=== PATIENT | female | born 1945 | race Caucasian/White ===

== ENCOUNTER → 2017-04-15 | Outpatient (CLI) | payer MEDICARE ==
[2017-04-15 07:26] LABS: Basophils % (A) 0 %; CH 32.1; CHCM 31.8; Eosinophils # (A) 0.1 k/uL (0-0.7); Eosinophils % (A) 2 %; HCT 50.7 % (34.0-46.0); HDW 2.24; HGB 16.3 gm/dL (11.4-16.0); Luc # (Auto) 0.16; Luc % (Auto) 2; Lymphocytes # (A) 2.3 k/uL (1.0-4.8); Lymphocytes % (A) 32 %; MCH 32.6 pg (25.0-35.0); MCHC 32.1 g/dL (31.0-37.0); MCV 101.6 fL (80.0-100.0); Macrocytosis Slight; Mean Platelet Volume 7.1; Monocytes # (A) 0.6 k/uL (0-1.0); Monocytes % (A) 8 %; Neutrophils # (A) 4.1 k/uL (1.3-7.7); Neutrophils % (A) 57 %; RBC 4.99 m/uL (3.80-5.40); RDW 14.1 % (11.5-15.5); WBC 7.2 k/uL (3.8-10.6); WBC (Perox) 7.13
[2017-04-15 08:40] LABS: ALT 29 U/L (9-52); AST 29 U/L (14-36); Alkaline Phosphatase 59 U/L (38-126); Anion Gap 8 mmol/L; Blood Urea Nitrogen 17 mg/dL (7-17); Calcium 9.6 mg/dL (8.4-10.2); Carbon Dioxide 28 mmol/L (22-30); Chloride 108 mmol/L (98-107); Cholesterol 156 mg/dL (<200); Glucose 104 mg/dL (74-99); HDL Cholesterol 57 mg/dL (40-60); Non-African American GFR(MDRD) 54 (>60 ml/min/1.73 sqM); Potassium 5.1 mmol/L (3.5-5.1); Sodium 144 mmol/L (137-145); Total Bilirubin 0.9 mg/dL (0.2-1.3); Total Protein 6.4 g/dL (6.3-8.2); Triglycerides 161 mg/dL (<150)
== END | disposition home or self-care (01) ==
LOC: LABWHC1 06:36
PROVIDERS: ATTEND Internal Medicine Interventional Cardiology
DX: E78.2 Mixed hyperlipidemia (principal)
CPT/HCPCS: 36415; 80053; 80061; 85025

== ENCOUNTER → 2017-06-20 | Outpatient (CLI) | payer MEDICARE, OTHER ==
--- NOTE | 2017-06-20 12:15 | BD ---
EXAMINATION TYPE: MG DEXA axial skeleton. DATE OF EXAM: 06/20/2017 CLINICAL HISTORY: Postmenopausal female with osteopenia. Height: 61 Weight: 107 FRAX RISK QUESTIONS: Alcohol (3 or more units per day): no Family History (Parent hip fracture): no Glucocorticoids (More than 3mos): no (Ex: prednisone, prednisolone, methylprednisolone, dexamethasone, and hydrocortisone). History of Fracture in Adulthood: little finger Secondary Osteoporosis: 1. Type 1 Diabetes: no 2. Hyperthyroidism: no 3. Menopause before 45: yes, age 37 4. Malnutrition: unsure 5. Chronic liver disease: no Rheumatoid Arthritis: yes, but stopped meds for this Current Tobacco Use: yes RISK FACTORS HISTORY OF: Family History of Osteoporosis: no Active: yes Diet low in dairy products/other sources of calcium: no Postmenopausal woman: yes Take estrogen and/or progesterone medications: not now How long: about 28 years Lost more than 2 inches in height since high school: no Frequent falls: no Poor Health: no Hyperparathyroidism: no Adrenal Insufficiency: no MEDICATIONS: Prednisone or other steroids: no Thyroid Medications: no Osteoporosis Medications: no Additional Medications: blood thinner, heart meds Additional History: weight loss EXAM MEASUREMENTS: Bone mineral densitometry was performed using the [employer] System. Bone mineral density as measured about the Lumbar spine is: ----- L1-L4(G/cm2): 1.043 T Score Values are as follows: ----- L2: -1.7 ----- L3: -0.7 ----- L4: -0.5 ----- L1-L4: -1.1 Bone mineral density has: Decreased -2.0% since study of: 05/28/2014 Bone mineral density about the R hip (g/cm2): 0.666 Bone mineral density about the L hip (g/cm2): 0.663 T Score values are as follows: -----R Neck: -2.7 -----L Neck: -2.7 -----R Total: -2.0 -----L Total: -2.2 Bone mineral density has: Decreased -7.0% since study of: 05/28/2014 IMPRESSION: Osteoporosis (T Score less than -2.5) as noted by T Score values at the There is increased fracture risk and therapy is usually indicated based on age. Re-Screen 1-2 years. NOTE: T-SCORE=SD OF THE YOUNG ADULT MEAN.
--- NOTE | 2017-06-22 08:42 | MM ---
Reason for exam: screening (asymptomatic). Last mammogram was performed 1 year ago. History: Patient is postmenopausal and is nulliparous. Took estrogen for 28 years beginning at age 37. Took progesterone for 28 years beginning at age 37. Physical Findings: A clinical breast exam by your physician is recommended on an annual basis and results should be correlated with mammographic findings. MG 3D Screening Mammo W/Cad Bilateral CC and MLO view(s) were taken. Prior study comparison: June 07, 2016, bilateral MG 3d screening mammo w/cad. June 12, 2015, right breast MG work up mamm w CAD RT. The breast tissue is heterogeneously dense. This may lower the sensitivity of mammography. Finding: There are typically benign grouped calcifications in the left breast. No significant changes in finding since June 07, 2016 and June 12, 2015. ASSESSMENT: Benign, BI-RAD 2 RECOMMENDATION: Routine screening mammogram of both breasts in 1 year.
== END | disposition home or self-care (01) ==
LOC: RADMAMWWP 08:34
PROVIDERS: ATTEND Internal Medicine
DX: Z12.31 Encounter for screening mammogram for malignant neoplasm of breast (principal); M81.0 Age-related osteoporosis without current pathological fracture
CPT/HCPCS: 77080; 77063; G0202

== ENCOUNTER → 2017-07-19 | Outpatient (CLI) | payer MEDICARE, OTHER ==
--- NOTE | 2017-07-19 08:48 | CTL ---
EXAMINATION TYPE: CT Low Dose Lung DATE OF EXAM ORDERED: 07/19/2017 HISTORY: Long-term tobacco use. Lung cancer screening CT DLP: 44.[address] CTDI: 1.10 mGy Automated exposure control for dose reduction was used. SCREENING VISIT: Initial study COMPARISON: None TECHNIQUE: Low dose computed tomography scan was performed through the chest at 1 mm thick sections a nd reconstructed images in the coronal plane at [address] DIAGNOSTIC QUALITY: Satisfactory FINDINGS: LUNG NODULES: Present, detailed below: Right lung a nodule with a size of 2 mm. that is solid in nature on image # CT Image slide number [id number]. Right lung a nodule with a size of 3 x 3 mm. with Nodule Type: Solid on image # CT Image slide numbe r [id number]. Left lung nodule with a size of 4 x 3 mm that is solid in the left lower lobe on axial image 172. Lingular 3 x 3 mm nodule that is solid on axial image 205. Left lung irregular solid nodule with a size of 5 x 2 mm on axial image 238. There are 3-4 additional small nodules in the left lower lobe measuring 3 mm or smaller in size. LUNGS: COPD: Severity: Mild to minimal Fibrosis: Severity: Mild biapical fibrosis. Focal fibrosis in inferior left upper lobe abutting media stinum on axial image 202. Mild linear scarring in the bilateral lung bases. Lymph nodes: Prominent but subcentimeter lymph nodes, for reference is 10 x 6 mm paracarinal lymph no de on axial image 125. Other findings: No significant findings observed. BILATERAL PLEURAL SPACE: Effusion: None Calcification: None Thickening: None Pneumothorax: None HEART: Heart Size: Normal Coronary calcification: Severe three-vessel Pericardial effusion: None OTHER FINDINGS: Upper abdomen: No significant finding observed. Bony thorax: Spine is straightened on sagittal images. Supraclavicular region: No significant findings seen. Other: There is moderate calcified atherosclerotic change of aorta extending into branch vessels. There is single lead pacemaker/AICD. IMPRESSION: Scattered small nodules all measuring under 4 mm in size. No suspicious greater than 6 mm nodules or masses identified. FOLLOW UP CT CHEST RECOMMENDATION: Annual low-dose lung screening CT CT LUNG RAD: Lung-Rad 2 Benign Appearance or Behavior Severe three-vessel coronary artery calcification noted. Clinical Correlate with additional coronary risk factors.
== END | disposition home or self-care (01) ==
LOC: RADCTMAIN 07:04
PROVIDERS: ATTEND Internal Medicine
DX: Z12.2 Encounter for screening for malignant neoplasm of respiratory organs (principal); R91.8 Other nonspecific abnormal finding of lung field; Z87.891 Personal history of nicotine dependence

== ENCOUNTER → 2017-08-04 | Outpatient (CLI) | payer MEDICARE, OTHER ==
[2017-08-04 08:31] LABS: ALT 30 U/L (9-52); AST 37 U/L (14-36); Cholesterol 169 mg/dL (<200); HDL Cholesterol 73 mg/dL (40-60)
== END | disposition home or self-care (01) ==
LOC: LABWHC1 07:46
PROVIDERS: ATTEND Nurse Practitioner Adult Health
DX: E78.2 Mixed hyperlipidemia (principal)
CPT/HCPCS: 36415; 80061; 84450; 84460

== ENCOUNTER → 2017-09-21 | Outpatient (CLI) | payer MEDICARE, OTHER ==
[2017-09-21 07:33] LABS: CH 31.2; HCT 52.5 % (34.0-46.0); MCHC 30.5 g/dL (31.0-37.0); MCV 101.4 fL (80.0-100.0); Macrocytosis Slight; Mean Platelet Volume 7.5; RBC 5.17 m/uL (3.80-5.40); RDW 15.1 % (11.5-15.5); WBC 6.9 k/uL (3.8-10.6)
[2017-09-21 07:42] LABS: Anion Gap 5 mmol/L; Blood Urea Nitrogen 17 mg/dL (7-17); Calcium 9.8 mg/dL (8.4-10.2); Carbon Dioxide 30 mmol/L (22-30); Chloride 108 mmol/L (98-107); Glucose 104 mg/dL (74-99); Non-African American GFR(MDRD) 54 (>60 ml/min/1.73 sqM); Sodium 143 mmol/L (137-145)
[2017-09-21 08:02] LABS: Potassium 4.9 mmol/L (3.5-5.1)
== END | disposition home or self-care (01) ==
LOC: LABWHC1 06:41
PROVIDERS: ATTEND Internal Medicine Clinical Cardiac Electrophysiology
DX: I42.8 Other cardiomyopathies (principal); I25.10 Atherosclerotic heart disease of native coronary artery without angina pectoris; Z95.810 Presence of automatic (implantable) cardiac defibrillator
CPT/HCPCS: 36415; 80048; 85027

== ENCOUNTER → 2017-11-23 | Outpatient (CLI) | payer MEDICARE, OTHER ==
[2017-11-23 08:01] LABS: ALT 28 U/L (9-52); AST 37 U/L (14-36); Albumin 4.2 g/dL (3.5-5.0); Alkaline Phosphatase 51 U/L (38-126); Anion Gap 10 mmol/L; Blood Urea Nitrogen 21 mg/dL (7-17); Calcium 10.1 mg/dL (8.4-10.2); Carbon Dioxide 27 mmol/L (22-30); Chloride 107 mmol/L (98-107); Cholesterol 180 mg/dL (<200); Glucose 104 mg/dL (74-99); HDL Cholesterol 72 mg/dL (40-60); LDL Cholesterol,Calculated 78 mg/dL (0-99); Potassium 5.6 mmol/L (3.5-5.1); Sodium 144 mmol/L (137-145); Total Bilirubin 1.4 mg/dL (0.2-1.3); Total Protein 6.9 g/dL (6.3-8.2); Triglycerides 148 mg/dL (<150)
== END | disposition home or self-care (01) ==
LOC: LABWHC1 06:43
PROVIDERS: ATTEND Internal Medicine Interventional Cardiology
DX: E78.2 Mixed hyperlipidemia (principal)
CPT/HCPCS: 36415; 80053; 80061

== ENCOUNTER → 2017-12-08 | Outpatient (CLI) | payer MEDICARE, OTHER ==
[2017-12-08 07:00] LABS: Anion Gap 10 mmol/L; Blood Urea Nitrogen 18 mg/dL (7-17); Calcium 9.7 mg/dL (8.4-10.2); Carbon Dioxide 27 mmol/L (22-30); Chloride 107 mmol/L (98-107); Glucose 91 mg/dL (74-99); Potassium 4.6 mmol/L (3.5-5.1); Sodium 144 mmol/L (137-145)
== END | disposition home or self-care (01) ==
LOC: LABWHC1 06:31
PROVIDERS: ATTEND Nurse Practitioner Adult Health
DX: E78.5 Hyperlipidemia, unspecified (principal)
CPT/HCPCS: 36415; 80048

== ENCOUNTER → 2018-05-19 | Outpatient (CLI) | payer MEDICARE, OTHER ==
[2018-05-19 08:41] LABS: HCT 51.3 % (34.0-46.0); HGB 15.9 gm/dL (11.4-16.0); MCH 30.8 pg (25.0-35.0); MCHC 31.1 g/dL (31.0-37.0); MCV 99.3 fL (80.0-100.0); Mean Platelet Volume 6.8; Platelet Count 223 k/uL (150-450); RBC 5.17 m/uL (3.80-5.40); RDW 14.1 % (11.5-15.5); WBC 7.9 k/uL (3.8-10.6)
[2018-05-19 08:58] LABS: Calcium 9.8 mg/dL (8.4-10.2); Potassium 5.1 mmol/L (3.5-5.1); Total Bilirubin 1.1 mg/dL (0.2-1.3); Total Protein 6.6 g/dL (6.3-8.2)
== END | disposition home or self-care (01) ==
LOC: LABWHC1 07:47
PROVIDERS: ATTEND Internal Medicine
DX: E78.4 Other hyperlipidemia (principal); E87.8 Other disorders of electrolyte and fluid balance, not elsewhere classified; R53.83 Other fatigue
CPT/HCPCS: 36415; 80053; 80061; 85027

== ENCOUNTER → 2018-08-01 | Outpatient (CLI) | payer MEDICARE, OTHER ==
--- NOTE | 2018-08-01 08:48 | CTL ---
EXAMINATION TYPE: CT Low Dose Lung DATE OF EXAM ORDERED: 08/01/2018 HISTORY: . Lung cancer screening CT DLP: 36.1 mGycm Automated exposure control for dose reduction was used. SCREENING VISIT: COMPARISON: 07/19/2017 TECHNIQUE: Low dose computed tomography scan was performed through the chest at 1 mm thick sections a nd reconstructed images in the coronal plane at [address] DIAGNOSTIC QUALITY: Satisfactory FINDINGS: LUNG NODULES: 3 mm subpleural left apical nodule stable. 2 mm right upper lobe pulmonary nodule stable. 3 mm nodule right lower lobe stable. Subpleural 3 mm posterior right lower lobe nodule stable Lingular left upper lobe nodule 3 mm stable. There is a left lower lobe 5 mm x 2 mm stable. Additional 3-4 small nodules left lower lobe measuring 3 mm or smaller stable. 2 mm left upper lobe pulmonary nodule anterior segment stable. 2 mm nodule right upper lobe image 105 stable. LUNGS: COPD: Severity: Mild to minimal Fibrosis: Severity: Mild. There is interlobular septal thickening bilaterally compatible with pulmona ry fibrosis.. Lymph nodes: Prominent but subcentimeter lymph nodes, for reference is 10 x 6 mm paracarinal lymph no de. Other findings: There are areas of subsegmental consolidation most typical of atelectasis.. PLEURAL SPACE: No pleural effusion, , pneumothorax or calcification apical pleural thickening appears stable. HEART: Heart size is mildly enlarged and stable. Cardiac device noted and there is coronary artery calcifica tion. OTHER FINDINGS: Atherosclerotic change of the aorta noted. Hypertrophic change of the vertebral column. Atherosclerot ic change of the vasculature. IMPRESSION: 1. Findings compatible COPD, mild pulmonary fibrosis with stable appearing multiple bilateral 5 mm le ss pulmonary nodules. FOLLOW UP CT CHEST RECOMMENDATION: Follow-up in one year CT LUNG RAD: Lung-Rad 2 Benign Appearance or Behavior
== END ==
LOC: RADCTMAIN 07:43
PROVIDERS: ATTEND Internal Medicine
DX: Z12.2 Encounter for screening for malignant neoplasm of respiratory organs (principal); Z87.891 Personal history of nicotine dependence

== ENCOUNTER → 2018-11-29 | Outpatient (CLI) | payer MEDICARE ==
[2018-11-29 07:18] LABS: MCH 31.3 pg (25.0-35.0); MCHC 31.3 g/dL (31.0-37.0); MCV 99.8 fL (80.0-100.0); Mean Platelet Volume 6.3; Platelet Count 246 k/uL (150-450); RBC 5.11 m/uL (3.80-5.40); RDW 14.2 % (11.5-15.5); WBC 9.2 k/uL (3.8-10.6)
[2018-11-29 12:04] LABS: Calcium 9.3 mg/dL (8.7-10.3); LDL Cholesterol,Calculated 67.4 mg/dL (0.0-131.0); Potassium 4.4 mmol/L (3.5-5.5); VLDL Calculation 31.6 mg/dL (5.00-40.00)
== END | disposition home or self-care (01) ==
LOC: LABWHC1 06:36
PROVIDERS: ATTEND Internal Medicine
DX: E78.2 Mixed hyperlipidemia (principal); E87.8 Other disorders of electrolyte and fluid balance, not elsewhere classified; E78.41 Elevated Lipoprotein(a); R53.83 Other fatigue
CPT/HCPCS: 36415; 80048; 80061; 84450; 84460; 85027

== ENCOUNTER → 2019-05-25 | Outpatient (CLI) | payer MEDICARE ==
[2019-05-25 18:43] LABS: African American GFR (CKD) 63.8 (60.0-200.0); Albumin 4.3 g/dL (3.80-4.90); Albumin/Globulin Ratio 2.26 (1.60-3.17); Anion Gap 11.5 mmol/L (4.00-12.00); Calcium 9.3 mg/dL (8.7-10.3); Carbon Dioxide 24.5 mmol/L (21.6-31.8); Globulin 1.9 g/dL (1.6-3.3); Potassium 4.8 mmol/L (3.5-5.5); Total Bilirubin 1.1 mg/dL (0.2-1.2); Total Protein 6.2 g/dL (6.2-8.2)
== END | disposition home or self-care (01) ==
LOC: LABWHC1 07:10
PROVIDERS: ATTEND Internal Medicine Interventional Cardiology
DX: E78.2 Mixed hyperlipidemia (principal)
CPT/HCPCS: 36415; 80053; 80061

== ENCOUNTER → 2019-07-24 | Outpatient (CLI) | payer MEDICARE ==
[2019-07-24 07:48] LABS: Calcium 9.7 mg/dL (8.4-10.2); Potassium 4.5 mmol/L (3.5-5.1)
== END | disposition home or self-care (01) ==
LOC: LABPAT 06:49
PROVIDERS: ATTEND Internal Medicine Clinical Cardiac Electrophysiology
DX: Z01.812 Encounter for preprocedural laboratory examination (principal); I25.10 Atherosclerotic heart disease of native coronary artery without angina pectoris; I42.8 Other cardiomyopathies
CPT/HCPCS: 80048

== ENCOUNTER 2019-07-26 06:00 | Day surgery (SDC) | payer MEDICARE ==
[2019-07-25 12:45] VITALS: BMI 20.2
[2019-07-26] MEDS ORDERED: SODIUM CHLORIDE 0.9% 1,000 ML IV SCH (06:10)
[2019-07-26] MEDS ORDERED: SODIUM CHLORIDE 0.9% 1,000 ML IV ONE (06:39)
[2019-07-26 06:42] VITALS: RESP 16; TEMP 97.8
[2019-07-26] MEDS ORDERED: PROPOFOL 10 MG/ML 20 ML VIAL IV ONE (07:09)
--- NOTE | 2019-07-26 07:48 | P.HPCAR ---
History of Present Illness This is Dr. Duran dictating an H&P on this patient The patient was interviewed and examined by me IMPRESSION / ASSESSMENT: Abnormal ICD function with over sensing on the RV channel requiring adjustment of the sensitivity to 0.7 mV Nonischemic cardiomyopathy original left ventricular systolic function was 20% in 2008 Most recent left ventricle systolic function 40% Moderate MR Single-chamber [employer] ICD dual coil Dyslipidemia PVD Underlying nonobstructive CAD that did not explain her cardiomyopathy PLAN: Cinefluoroscopy of the leads to look for any fractures or breaks Defibrillation testing at least sensitivity and ICD reprogramming accordingly HPI Patient denies any chest discomfort or any undue shortness of breath dizziness lightheadedness or palpitations No orthopnea no PND She has no fever chills cough probably symptoms She has not received any inappropriate or appropriate ICD shocks Device interrogation revealed over sensing in the RV channel as well as noise on the RV channel ROS: No fever chills or rigors, no cough, phlegm or expectoration, no nausea, vomiting or diarrhea, no hematuria, dysuria, no musculoskeletal complaints, no strokes or seizures, no skin lesions. EXAMINATION: Afebrile 97.8F normal respirations blood pressure 140/77 mmHg Breath sounds are clear Heart sounds S1 and S2 are normal Abdomen is soft nontender Extremity is warm no edema REVIEW OF LABS, ECG & MEDICAL DATA Dyslipidemia PVD Current smoker Predominantly nonischemic cardio myopathy On guideline written medical treatment Patient is on lisinopril, aspirin, Plavix, beta blockers, simvastatin Physical Exam Vitals: Vital Signs Temp Pulse Resp BP Pulse Ox 07/26/19 06:39 97.8 F 74 16 140/77 98 Intake and Output 07/25/19 07/26/19 07/26/19 22:59 06:59 14:59 Intake Total 50 150 Balance 50 150 Intake: IV 50 150 Other: Weight 41.5 kg Past Medical History Past Medical History: Hyperlipidemia, Hypertension, Osteoarthritis (OA), P neumonia, Vascular Disorder Additional Past Medical History / Comment(s): See Dr. Andino H&P. "Weak heart." Hx Pneumonia many yrs ago. History of Any Multi-Drug Resistant Organisms: None Reported Past Surgical History: AICD, Bowel Resection, Heart Catheterization, Orthopedic Surgery, Tonsillectomy Additional Past Surgical History / Comment(s): ARTHROSCOPY BILATERAL KNEES, LEFT ILIAC PTBA/STENT, 7-16-15 STENT TO RIGHTT ILIAC, colonoscopy. Past Anesthesia/Blood Transfusion Reactions: No Reported Reaction Additional Past Anesthesia/Blood Transfusion Reaction / Comment(s): With one prior surgery had difficulty waking up. Type of Cardiac Device: AICD Device Placement Date:: 2008 Past Psychological History: No Psychological Hx Reported Smoking Status: Former smoker Past Alcohol Use History: None Reported Additional Past Alcohol Use History / Comment(s): Has been an on and off smoker for 30 +yrs, 1/2 PPD. Past Drug Use History: None Reported - Past Family History Sister(s) Family Medical History: Cancer Additional Family Medical History / Comment(s): Brain Cancer. Father Family Medical History: Myocardial Infarction (HI) Physical Examination Vital Signs Temp Pulse Resp BP Pulse Ox 07/26/19 06:39 97.8 F 74 16 140/77 98 Intake and Output 07/25/19 07/26/19 07/26/19 22:59 06:59 14:59 Intake Total 50 150 Balance 50 150 Intake: IV 50 150 Other: Weight 41.5 kg Results Current Medications Generic Name Dose Route Start Last Admin Trade Name Freq PRN Reason Stop Dose Admin Sodium Chloride 1,000 mls @ 20 mls/hr 07/26/19 06:10 Saline 0.9% IV .Q24H BRIDGET Intake and Output 07/25/19 07/26/19 07/26/19 22:59 06:59 14:59 Intake Total 50 150 Balance 50 150 Intake: IV 50 150 Other: Weight 41.5 kg
[2019-07-26 08:14] VITALS: BP 109/58; PULSE 75
--- NOTE | 2019-07-26 08:20 | CE ---
CARDIAC ELECTROPHYSIOLOGY REPORT The patient was brought in for ICD testing under anesthesia on account of noise on the RV channel as well as over sensing noted on the RV channel requiring adjustment in RV sensitivity. The patient has a [employer] single-chamber ICD Ellipse VR 1411-36C, serial #[id number]. The new ICD lead is dual coil Durata 7120, 65 cm in length and serial number [id number]. Pacing threshold 0.75 V at 1 millisecond, R-waves 12 mV, pacing impedance 560 ohms and high-voltage impedance 56 ohms from RV to SVC . The impedances were interrogated and were stable. The high-voltage impedances were interrogated and have been stable over the years. Cinefluoroscopy of the lead was first performed. The patient has a dual coil ICD lead implanted and screwed in the RV apex. No obvious fractures or breaks noted. No externalization noted. The ICD was reprogrammed for DFT testing. A DC fibber shock was used to induce ventricular fibrillation. This was adequately and appropriately detected at least sensitivity without any dropouts and successfully internally defibrillated with a 10- joule shock charge time 2 seconds. High-voltage impedance 56 ohms. No post shock noise. The device was then reprogrammed to the MADIT RIT programming with appropriate antitachycardia pacing, cardioversion and defibrillation and long detection intervals. Sensitivity was programmed at 0.7 mV. Antitachycardia parameters were reprogrammed. Cardioversion energy in VT2 zone was reprogrammed. The patient tolerated the procedure well without any acute complications. IMPRESSION: 1. No abnormalities noted on cinefluoroscopy of dual coil ICD lead [employer] Durata screw-in lead. 2. Normal sensing of ventricular fibrillation at least sensitivity. 3. Stable impedances as well as high-voltage impedances over the years. 4. Sensitivity has been programmed to 0.7 mV. MMODL / IJN: [id number] /
== END 2019-07-26 08:49 | disposition home or self-care (01) ==
LOC: CATHEP 06:00
PROVIDERS: ATTEND Internal Medicine Clinical Cardiac Electrophysiology
DX: I42.8 Other cardiomyopathies (principal); Z45.02 Encounter for adjustment and management of automatic implantable cardiac defibrillator; I10 Essential (primary) hypertension; E78.5 Hyperlipidemia, unspecified; I73.9 Peripheral vascular disease, unspecified; Z95.820 Peripheral vascular angioplasty status with implants and grafts; F17.210 Nicotine dependence, cigarettes, uncomplicated; M19.90 Unspecified osteoarthritis, unspecified site; Z87.01 Personal history of pneumonia (recurrent); Z90.49 Acquired absence of other specified parts of digestive tract; Z80.8 Family history of malignant neoplasm of other organs or systems; Z82.49 Family history of ischemic heart disease and other diseases of the circulatory system; Z79.02 Long term (current) use of antithrombotics/antiplatelets; Z79.82 Long term (current) use of aspirin; Z79.899 Other long term (current) drug therapy
CPT/HCPCS: 93642; 76000; J2704

== ENCOUNTER → 2019-11-29 | Outpatient (CLI) | payer MEDICARE ==
[2019-11-29 11:52] LABS: African American GFR (CKD) 72.5 (60.0-200.0); Albumin 4.5 g/dL (3.80-4.90); Albumin/Globulin Ratio 2.14 (1.60-3.17); Anion Gap 6.9 mmol/L (4.00-12.00); BUN/Creat Ratio 18.89 Ratio (12.00-20.00); Calcium 9.6 mg/dL (8.7-10.3); Carbon Dioxide 29.1 mmol/L (21.6-31.8); Chol/HDL Ratio 2.46; Globulin 2.1 g/dL (1.6-3.3); LDL Cholesterol,Calculated 78.6 mg/dL (0.0-131.0); Non-African American GFR(CKD) 62.5 (60.0-200.0); Potassium 4.6 mmol/L (3.5-5.5); Total Bilirubin 0.8 mg/dL (0.3-1.2); Total Protein 6.6 g/dL (6.2-8.2); VLDL Calculation 29.4 mg/dL (5.00-40.00)
== END | disposition home or self-care (01) ==
LOC: LABWHC1 06:36
PROVIDERS: ATTEND Internal Medicine Interventional Cardiology
DX: E78.2 Mixed hyperlipidemia (principal)
CPT/HCPCS: 36415; 80053; 80061

== ENCOUNTER → 2019-12-14 | Outpatient (CLI) | payer MEDICARE ==
--- NOTE | 2019-12-14 15:12 | CTL ---
EXAMINATION TYPE: CT Low Dose Lung DATE OF EXAM ORDERED: 12/14/2019 COMPARISON: HISTORY: . Low Dose CT Lung Screening CT DLP: 33.[address] CTDI: 0.9 mGy IV CONTRAST USED: None. SCREENING VISIT: First visit COMPARISON: None. TECHNIQUE: Low dose computed tomography scan was performed through the chest at 1 millimeter thick se ctions and reconstructed images in the coronal plane at [address] DIAGNOSTIC QUALITY: Satisfactory FINDINGS: LUNG NODULES LUNG NODULES: 3 mm subpleural left apical nodule stable. 2 mm right upper lobe pulmonary nodule stabl e. 3 mm nodule right lower lobe stable. Subpleural 3 mm posterior right lower lobe nodule stable Ling ular left upper lobe nodule 3 mm stable. There is a left lower lobe 5 mm x 2 mm stable. Additional 3- 4 small nodules left lower lobe measuring 3 mm or smaller stable. 2 mm left upper lobe pulmonary nodu le anterior segment stable. 2 mm nodule right upper lobe image. LUNGS: COPD: Severity: Mild Fibrosis: Severity: Mild septal thickening. Lymph nodes: None Other findings: None RIGHT PLEURAL SPACE: Effusion: None Calcification: None Thickening: None Pneumothorax: None LEFT PLEURAL SPACE: Effusion: None Calcification: None Thickening: None Pneumothorax: None HEART: Heart Size: Mildly enlarged Coronary calcification: Mild Pericardial effusion: None OTHER FINDINGS: Upper abdomen: No significant abnormality Bony thorax: Degenerative changes Supraclavicular region: No significant abnormalityOther: No significant abnormalityI IMPRESSION: 1. COPD with a mild fibrotic change. Some 5 mm scattered pulmonary nodules redemonstrated. FOLLOW UP CT CHEST RECOMMENDATION: Follow-up screening in one year CT LUNG RAD: LUNG RAD CATEGORY 2 benign appearance or behavior
== END | disposition home or self-care (01) ==
LOC: RADCTMAIN 14:16
PROVIDERS: ATTEND Family Medicine
DX: J44.9 Chronic obstructive pulmonary disease, unspecified (principal); J84.10 Pulmonary fibrosis, unspecified; R91.8 Other nonspecific abnormal finding of lung field; Z87.891 Personal history of nicotine dependence

== ENCOUNTER → 2020-05-04 | Outpatient (CLI) | payer MEDICARE ==
--- NOTE | 2020-05-04 09:05 | CT ---
EXAMINATION TYPE: CT lumbar spine wo con DATE OF EXAM: 05/04/2020 COMPARISON: CT 04/19/2015 HISTORY: Spondylosis CT DLP: 491.5 mGycm Automated exposure control for dose reduction was used. An unenhanced CT of the lumbar spine was performed. Bone and soft tissue window settings are submitt ed as well as coronal and sagittal reconstructions. FINDINGS: There is a focus of abnormal soft tissue at the posterior costophrenic angle measuring appr oximately 17 mm with a lobular contour. Follow-up is recommended. There are coronary artery calcifica tions. Vascular calcifications present within the kidneys, some nonobstructive calculi also present, the upper pole the right kidney there is a calcification measuring 4 x 1 mm. Some punctate parenchyma l calcification suspected within the left kidney. Left kidney is atrophic as on prior exam. Metallic lead noted within the right atrium. There is a levoscoliosis present. Multilevel spondylosis is present, loss of disc height is greatest at L3-4, L2-3. Lumbar vertebral bodies show preserved height. There is reversal the normal lumbar jayashree dosis. Peripheral vascular occlusive disease changes are present, dense atherosclerotic calcification s, bilateral iliac stents. L1-L2: Posterior broad-based disc bulge causes mild anterior mass effect on the thecal sac. No signif icant spinal stenosis. Circumferential extension of this causes some left-sided foraminal encroachmen t L2-L3: Minimal posterior disc bulge causes slight anterior mass effect on the thecal sac. There is hy pertrophic change and ligamentum flavum. Circumferential disc bulge courses into the neural foramen g reater on the left. L3-L4: Posterior broad-based disc bulge causes anterior mass effect on the thecal sac, mild to modera te spinal stenosis, hypertrophic changes and ligamentum flavum causes posterior lateral mass effect o n the thecal sac. Circumferential extension disc bulge encroaches on the foramina. L4-L5: Posterior broad-based disc bulge causes mild anterior mass effect on the thecal sac. Facet art hropathy with hypertrophy ligamentum flavum is noted. No significant foraminal encroachment or spinal stenosis is evident. L5-S1: Posterior broad-based disc bulge may contact the anterior thecal sac. No significant spinal st enosis. Circumferential extension of disc extends towards the foramina, there is some calcification t hought associated with the lateral margin of the disc on the right the inferior aspect of the foramen . IMPRESSION: Abnormal soft tissue in the right costophrenic angle posteriorly is indeterminate, follow -up recommended. Degenerative disc disease as described. Scoliosis. Nephrolithiasis. Additional findings above.
== END | disposition home or self-care (01) ==
LOC: RADCTMAIN 07:27
PROVIDERS: ATTEND Physical Medicine & Rehabilitation
DX: M48.061 Spinal stenosis, lumbar region without neurogenic claudication (principal); M51.26 Other intervertebral disc displacement, lumbar region; M47.816 Spondylosis without myelopathy or radiculopathy, lumbar region; M41.86 Other forms of scoliosis, lumbar region
CPT/HCPCS: 72131

== ENCOUNTER → 2020-05-12 | Outpatient (CLI) | payer MEDICARE ==
[2020-05-12 07:31] LABS: Basophils % (A) 1 %; Eosinophils # (A) 0.2 k/uL (0-0.7); Eosinophils % (A) 2 %; HCT 47.4 % (34.0-46.0); HGB 14.5 gm/dL (11.4-16.0); Lymphocytes % (A) 26 %; MCH 30.7 pg (25.0-35.0); MCHC 30.6 g/dL (31.0-37.0); MCV 100.4 fL (80.0-100.0); Monocytes # (A) 0.5 k/uL (0-1.0); Monocytes % (A) 6 %; Neutrophils # (A) 4.9 k/uL (1.3-7.7); Neutrophils % (A) 63 %; Platelet Count 214 k/uL (150-450); RBC 4.72 m/uL (3.80-5.40); RDW 13.5 % (11.5-15.5); WBC 7.7 k/uL (3.8-10.6)
[2020-05-12 16:28] LABS: African American GFR (CKD) 63.4 (60.0-200.0); Albumin 4.4 g/dL (3.80-4.90); Albumin/Globulin Ratio 1.91 (1.60-3.17); Anion Gap 7.2 mmol/L (4.00-12.00); Calcium 9.4 mg/dL (8.7-10.3); Carbon Dioxide 26.8 mmol/L (21.6-31.8); Chol/HDL Ratio 2.52; Globulin 2.3 g/dL (1.6-3.3); LDL Cholesterol,Calculated 82.8 mg/dL (0.0-131.0); Non-African American GFR(CKD) 54.7 (60.0-200.0); Potassium 4.7 mmol/L (3.5-5.5); Total Bilirubin 0.8 mg/dL (0.3-1.2); Total Protein 6.7 g/dL (6.2-8.2); VLDL Calculation 28.2 mg/dL (5.00-40.00)
== END | disposition home or self-care (01) ==
LOC: LABWHC1 07:02
PROVIDERS: ATTEND Nurse Practitioner Family
DX: E55.9 Vitamin D deficiency, unspecified (principal); I10 Essential (primary) hypertension; E78.49 Other hyperlipidemia; R53.83 Other fatigue; E03.9 Hypothyroidism, unspecified
CPT/HCPCS: 36415; 80053; 80061; 82306; 84443; 85025

== ENCOUNTER → 2020-05-19 | Outpatient (CLI) | payer MEDICARE ==
--- NOTE | 2020-05-20 07:42 | CT ---
EXAMINATION TYPE: CT abdomen pelvis wo/w con DATE OF EXAM: 05/19/2020 COMPARISON: 04/19/2015, lumbar spine 05/04/2020 INDICATION: Abnormal findings on diagnostic imaging. DLP: 883 mGycm, Automated exposure control for dose reduction was used. CONTRAST: 80ml mL of Isovue 300. Study performed with Oral Contrast TECHNIQUE: Axial images were obtained from above the diaphragm to the pubic rami in the axial plane a t 5 mm thick sections. Reconstructed images are reviewed on the computer in the coronal plane. FINDINGS: Limited CT sections are obtained the lung bases. There is a 1.4 x 1.8 cm soft tissue density in the posterior right lung base. This has irregular borders. Workup for neoplasm is recommended. Atelectasi s could be within the differential. This area is larger than the comparison.. CT ABDOMEN: Liver: Normal Spleen: Normal Pancreas: Normal Adrenal glands: The adrenal glands are normal. Gallbladder: Normal Kidneys: No masses are evident. No hydronephrosis is present. No cysts are present. Right kidney a ppears larger than the left. Vascular calcification appears to be present. There is some mild hydrone phrosis and hydroureter. Hydroureter extends to at least the pelvis. No obstructing stone is identifi ed. Urinary bladder cannot be well evaluated decompressed. Some subtle underlying increased density w ithin the distal ureter cannot be excluded. A 0.3 cm nonobstructing renal stone superior pole right k idney may be present a few peripheral cortical calcifications may be on the atrophic left kidney. Aorta: Vascular calcification is within the aorta. Mild fusiform prominence of the proximal abdomina l aorta is present within the AP diameter of 2.1 cm. Inferior vena cava: Normal. CT PELVIS: Loops of bowel within the abdomen and pelvis are normal. There are loops of bowel which are incom pletely distended or lack oral contrast limiting their evaluation. Appendix: Normal as visualized. Urinary bladder: Decompressed cannot be well evaluated. The right ureterovesical junction is not mayank rly identified. Distal right hydroureter is not clearly identified. Genitourinary structures: Uterus appears unremarkable. Adnexal regions are clear. Osseous structures: No suspicious lytic or sclerotic lesions. IMPRESSIONS: 1. Persistence of a area of increased density within the posterior right lung base appears suspiciou s for possible mass. Additional workup with contrast CT chest is recommended. PET/CT may be required. 2. Minimal right hydronephrosis with mild to moderate right hydroureter. An obstructing etiology is n ot identified on this exam. Consider additional evaluation with IVP
== END | disposition home or self-care (01) ==
LOC: RADCTMAIN 15:14
PROVIDERS: ATTEND Family Medicine
DX: N13.30 Unspecified hydronephrosis (principal); N13.4 Hydroureter
CPT/HCPCS: 82565; 84520; 74178; 36415; Q9967

== ENCOUNTER → 2020-05-28 | Outpatient (CLI) | payer MEDICARE ==
--- NOTE | 2020-05-28 10:58 | XR ---
EXAMINATION TYPE: XR IVP DATE OF EXAM: 05/28/2020 COMPARISON: CT abdomen and pelvis May 19, 2020 HISTORY: Right-sided hydronephrosis per order. Back pain per patient without hematuria or dysuria. TECHNIQUE: Following intravenous administration of 80 cc Isovue-370, multiple spot images are obtaine d. The preliminary film of the abdomen redemonstrated stent graft in the left common iliac artery and pr ominent vascular calcification of the right common iliac artery. Punctate densities right mid abdomen correspond to suspected central vascular calcifications at level of right kidney on recent CT. Following intravenous administration of contrast material, sequential films of the abdomen were obtai juanis. There is prompt and symmetrical excretion of the contrast by both kidneys which demonstrate dim inished size and areas of volume loss to the left kidney versus right kidney. The collecting systems and visualized portions of the ureters reveal no abnormality. Less than ideal opacification of the l eft ureter is noted on images obtained. There is no mass or obstruction visualized. There is gradua l accumulation of contrast material in the urinary bladder showing no gross abnormality. The post-vo iding film shows minimal residual contrast in the collecting systems and more prominent residual cont rast in the urinary bladder. IMPRESSION: No hydronephrosis noted bilaterally on current study. Asymmetric diminished size and foca l areas of volume loss or scarring in the left kidney redemonstrated. Abnormal post void residual gabby pected. Correlate clinically.
== END | disposition home or self-care (01) ==
LOC: RADFLMAIN 08:38
PROVIDERS: ATTEND Urology
DX: N13.30 Unspecified hydronephrosis (principal)
CPT/HCPCS: 82565; 84520; 74400; 36415; Q9967

== ENCOUNTER → 2020-05-31 | Outpatient (CLI) | payer MEDICARE ==
--- NOTE | 2020-06-01 20:04 | PE ---
EXAMINATION TYPE: PET CT fusion skull to thigh DATE OF EXAM: 05/31/2020 COMPARISON: CT abdomen pelvis 05/19/2020 Prior PET/CT: None HISTORY: Abnormal lung finding on prior imaging TECHNIQUE: Following the intravenous administration of 11.89 mCi of F-18 FDG, whole body images are performed from the skull base to the midthigh. Images are reviewed on the computer in the coronal, a xial, and sagittal planes. Reconstructed rotating images are created on independent workstation and reviewed on the computer. A localization and attenuation correction CT is performed in conjunction with the PET scan. SCAN: Initial Scan Blood glucose: 89 mg/dL Average Mediastinum SUV: 1.63 Average Liver SUV: 2.04 FINDINGS: NECK: No suspicious metabolic activity. THORAX: There is a normal-appearing 1.1 x 1.0 cm right axillary lymph node with mild hypermetabolic a ctivity max SUV 2.38. Right lower lobe basilar 1.1 x 1.7 cm nodular opacity demonstrates mild metabol ic activity less than blood pool, max SUV 1.47. No mediastinal or hilar lymphadenopathy. ABDOMEN/PELVIS: No suspicious metabolic activity. No lymphadenopathy. OSSEOUS STRUCTURES: No suspicious metabolic activity. LOCALIZATION CT: Left-sided pacemaker. Cardiomegaly and calcified coronary artery disease. Left renal cortical scarring and areas of caliectasis with metabolic activity corresponding to urine. Infrarena l abdominal aortic ectasia up to 1.8 cm. Severe calcified atherosclerotic disease. Left external scooter c stent and right common femoral artery stent. COMPARISON: None IMPRESSION: 1. 1.1 x 1.7 cm nodular opacity of the right lower lobe does not demonstrate hypermetabolic activity greater than blood pool. The ligament etiology less likely, although not excluded. Consider short-ter m follow-up CT of the chest in 3 months for stability. 2. Nonenlarged right axillary 1.1 cm lymph node with mild hypermetabolic activity. Recommend dedicate d right axillary ultrasound for further characterization.
== END | disposition home or self-care (01) ==
LOC: RADPETMAIN 07:59
PROVIDERS: ATTEND Nurse Practitioner Family
DX: R91.8 Other nonspecific abnormal finding of lung field (principal)
CPT/HCPCS: 78815; A9552

== ENCOUNTER → 2020-09-01 | Outpatient (CLI) | payer MEDICARE ==
[2020-09-01 13:51] VITALS: BP 110/75; PULSE 80; RESP 18; TEMP 98.2
--- NOTE | 2020-09-01 14:53 | P.PAINCN ---
History of Present Illness - Reason for Consult Consult date: 09/01/20 - History of Present Illness This is 75 years old female with a chronic history of severe low back pain, she is referred to [facility], pain clinic for radiofrequency ablation of the medial branch lumbar area, patient had to set of diagnostic medial branch block , and she reported that she gets more than 60% improvement of her low back pain after each diagnostic block and the pain relief was only for short-term, the pain is constant and increases with any activity that admitted to the lower extremity, interfere with the quality of life, she denies any motor or sensory deficit she denies any change in the bowel movement or urination Past Medical History Past Medical History: Hyperlipidemia, Hypertension, Osteoarthritis (OA), Pneumonia, Vascular Disorder Additional Past Medical History / Comment(s): See Dr. Andino H&P. "Weak heart." Hx Pneumonia many yrs ago. History of Any Multi-Drug Resistant Organisms: None Reported Past Surgical History: AICD, Bowel Resection, Heart Catheterization, Orthopedic Surgery, Tonsillectomy Additional Past Surgical History / Comment(s): ARTHROSCOPY BILATERAL KNEES, LEFT ILIAC PTBA/STENT, 05-08-15 STENT TO RIGHTT ILIAC, colonoscopy. Past Anesthesia/Blood Transfusion Reactions: No Reported Reaction Additional Past Anesthesia/Blood Transfusion Reaction / Comm: With one prior surgery had difficulty waking up. Type of Cardiac Device: AICD Device Placement Date:: 2008 Past Psychological History: No Psychological Hx Reported Smoking Status: Former smoker Past Alcohol Use History: None Reported Additional Past Alcohol Use History / Comment(s): Has been an on and off smoker for 30 +yrs, 1/2 PPD. Past Drug Use History: None Reported - Past Family History Sister(s) Family Medical History: Cancer Additional Family Medical History / Comment(s): Brain Cancer. Father Family Medical History: Myocardial Infarction ([place]) Medications and Allergies Home Medications Medication Instructions Recorded Confirmed Type Calcium Carb-Vit D 250Mg-125Un 1 tab PO HS 05/03/14 09/01/20 History [Oscal 250+D] Simvastatin [Zocor] 20 mg PO HS 05/03/14 09/01/20 History lisinopriL [Zestril] 5 mg PO HS 05/03/14 09/01/20 History Clopidogrel [Plavix] 75 mg PO DAILY 05/08/15 09/01/20 History Aspirin 81 mg PO DAILY 02/13/16 09/01/20 History Allergies Allergy/AdvReac Type Severity Reaction Status Date / Time No Known Allergies Allergy Verified 09/01/20 13:34 Physical Exam Vitals: Vital Signs Temp Pulse Resp BP Pulse Ox 09/01/20 13:36 98.2 F 80 18 110/75 98 Intake and Output 08/31/20 09/01/20 09/01/20 22:59 06:59 14:59 Other: Weight 43.998 kg Physical Examinations : -Constitutiona : Cooperative , not in acute distress . -HEENT : nech : supple , no Lymphadenopathy , normal thyroid size . : eyes : no ptosis , no icterus, no photophobia . - neurologic : Cranial nerve II to XII intact , no focal neurological deffecit . -psychatric : alert , oriented X 3 , appropriate affect , intact judgment and insight . -Lymphatic : no Lymphadenopathy . - musculoskeltal : Lumber spine moter stegnth lower extremities ,thigh and legs 5/5 Right side , 5/5 Left side deep tendon reflexes : normal Knee Jerk , normal ankle Jerk lumber facet Loading Test =positive Right , positive Left Range of motion of the lumbar spine Flexion 30 degrees, extension 10 degrees strait leg raising test = positive at 45 degree Fabere test= positive Right , and positive LT . Sever tenderness over the Sacroiliac joint on the Right side Gaenslen test= positive right. Seated flexion test= positive right . Results Comments: Computed tomography scan of the lumbar spine without contrast multilevel lumbar disc disease, facet arthropathy and foraminal stenosis Assessment and Plan Plan: Assessment and plan=1-lumbar spondylosis with lumbar facet arthropathy without myelopathy 2-lumbar degenerative disc disease. 3-lumbar foraminal stenosis 4-right sacroiliitis. Patient had diagnostic medial branch block x2 done at [facility], she got more than 60% improvement in her pain She will be good candidate to have RFA of the medial branch at L2, L3,L4,L5 (TO denervate the facet joint at L3-4,L4-5,L5-S1 ) She has to hold Plavix before the procedure Time with Patient: Greater than 30 PQRS Measure Charge Sheet Measure #130: Documentation of Current Meds in Medical Chart: Patient's medications documented in chart Measure #226: Tobacco Use: Screen & Cessation Intervention: Pt not a tobacco user Measure #111: Pneumonia Vaccination: Pneumococcal vaccine administered or previously received Measure #47: Advance Care Plan: Advance care planning discussed & documented, pt chose/unable to give Measure #412: Opioid Treatment Agreement: No documentation of signed opioid treatment agreement Measure #408: Opioid Therapy Follow-up Evaluation: Patient had NO f/u eval minimum every 3 months during opioid therapy Measure #317: Preventitive Care & Scrn High Bld Press & F/U: Normal blood pressure, f/u not required Measure #128: Body Mass Index (BMI) Screening & Follow-up: BMI documented BELOW normal parameters - f/u documented Measure #131: Pain Assessment & Follow-up: Pain positive & plan documented, Follow-up scheduled Measure #431: Unhealthy Alcohol Use Preventative Care & Scrn: Patient not identified as an unhealthy alcohol user PQRS Narrative: Smoking Status Former smoker Blood Pressure 110/75 Pain Intensity [Right Lower 8 Back] Scale Used Numeric (1 - 10) Hx Alcohol Use (MH) No Home Medications: Ambulatory Orders Calcium Carb-Vit D 250Mg-125Un [Oscal 250+D] 1 tab PO HS 05/03/14 Simvastatin [Zocor] 20 mg PO HS 05/03/14 lisinopriL [Zestril] 5 mg PO HS 05/03/14 Clopidogrel [Plavix] 75 mg PO DAILY 05/08/15 Aspirin 81 mg PO DAILY 02/13/16
== END | disposition home or self-care (01) ==
LOC: PNWHC3 13:05
PROVIDERS: ATTEND Anesthesiology
DX: M48.061 Spinal stenosis, lumbar region without neurogenic claudication (principal); M51.36 Other intervertebral disc degeneration, lumbar region; M47.816 Spondylosis without myelopathy or radiculopathy, lumbar region; M46.1 Sacroiliitis, not elsewhere classified; Z79.899 Other long term (current) drug therapy; Z79.82 Long term (current) use of aspirin
CPT/HCPCS: 99211

== ENCOUNTER → 2020-10-10 | Day surgery (SDC) | payer MEDICARE ==
[2020-10-08 14:37] VITALS: BMI 17.5
[~2020-10-10] MED LIST: LACTATED RINGERS 1,000 ML IV ONE; LACTATED RINGERS 1,000 ML IV SCH; LIDOCAINE 1% (10MG/ML) FOR IV START INTRADERMA ONE; LIDOCAINE 1% INJ 10MG/ML (20 ML MDV) ONE; MIDAZOLAM 2 MG/2 ML VIAL ONE; ROPIVACAINE 5MG/ML 20ML VIAL ONE; TRIAMCINOLONE ACETONIDE 40 MG/ML 1 ML VIAL ONE; fentaNYL (PF) 50 MCG/ML 2 ML AMP ONE
[2020-10-10 08:35] VITALS: TEMP 97.8
--- NOTE | 2020-10-10 09:42 | P.PCN ---
Date of Procedure: 10/10/20 Surgeon: Tayo Trotter Pathology: none sent Condition: stable Disposition: PACU Description of Procedure: PREOPERATIVE DIAGNOSIS: Lumbar spondylosis without myelopathy POSTOPERATIVE DIAGNOSIS: Lumbar spondylosis without myelopathy PROCEDURES : Right Radiofrequency thermocoagulation L3-L4, L4-L5, and L5-S1 medial branch, with fluoroscopic guidance ANESTHESIA: IV moderate conscious sedation by the anesthesia Department Physician:Tayo Trotter MD EBL: Minimal PROCEDURE INDICATION: The patient with low back pain secondary to lumbar facet arthropathy who had more than 50% relief of her pain with previous diagnostic lumbar medial branch block with bupivacaine. One-side will be done today because the patient has an AICD in place, and this way we can decrease the risk of interference with the AICD function. PROCEDURE DESCRIPTION / TECHNIQUE: The patient was seen and identified in the preoperative area. Risks, benefits, complications, including but not limited to risk of infection ,bleeding , allergic reactions to the medications and no complete pain relief , and alternatives were discussed with the patient, the patient agreed to proceed with the procedure and signed the consent. IV was started. Vital signs remained stable throughout the procedure. Patient was taken to the OR and time out was completed. The patient was placed in the prone position on the procedure table. The lumber area was prepped and draped in the usual sterile fashion. . Vital signs were closely monitored during the procedure .IV sedation was used during the procedure to decrease patients anxiety. The target points were identified as follows: For the L5-S1 level which corresponds to the dorsal ramus of L5 the target point was at the superior medial aspect of the sacral ala on the ---- side of the spine on the AP view of fluoroscopy and for the L2, L3, and L4 medial branches the target points were at the connection between the transverse process and the superior articular process of L3, L4, and L5 vertebra respectively on the Rt oblique view of fluoroscopy. skin was marked, and localized with 1% lidocaineat these points. Subsequently, an 18 [id number] radiofrequency needles with a 10-mm curved active tips were advanced guided by fluoroscopy to each of the target points mentioned above in a superior medial direction to get the active tips as parallel as possible to the medial branches tracks. AP, oblique, and lateral views of fluoroscopy were used to verify needle tips position. Each level then underwent motor testing at 2.5 Hz and 0 to 3 volt with local stimulation, but no radicular symptoms down the legs. I then injected 1 mL of lidocaine 1% in each needle before starting radiofrequency thermocoagulation at 80 degrees celsius for 90 seconds. After that I injected 1 ml of PF Ropivacaine 0.5%(3 mls) with 40 mg of Kenalog, 1 mL of this mixture was given in each needle before taking the needles out intact. At the end of the procedure, the skin was cleansed and bandages were applied. A copy of needle placement fluoroscopy was saved on the C-arm machine. COMPLICATIONS: No acute complications. DISPOSITION / PLANS: The patient was placed in a supine position and transf erred to the recovery area in a stable condition for observation and was discharged from the recovery room after meeting discharge criteria. Home discharge instructions given to the patient by the staff. The patient was reexamined prior to discharge. The patient will schedule a follow up in the clinic in 2-4 weeks.
[2020-10-10 09:53] VITALS: RESP 16
[2020-10-10 10:01] VITALS: BP 100/66; PULSE 69
--- NOTE | 2020-10-10 10:01 | FL ---
EXAMINATION TYPE: FL guided pain mgmt statistic DATE OF EXAM: 10/10/2020 HISTORY: LUMBAR FACET Radiology provided fluoroscopic time for epidural injection.
== END ==
LOC: ORPAIN 07:45
PROVIDERS: ATTEND Anesthesiology
DX: M47.816 Spondylosis without myelopathy or radiculopathy, lumbar region (principal); I73.9 Peripheral vascular disease, unspecified; I10 Essential (primary) hypertension; Z79.02 Long term (current) use of antithrombotics/antiplatelets; Z95.810 Presence of automatic (implantable) cardiac defibrillator; Z79.899 Other long term (current) drug therapy; Z79.82 Long term (current) use of aspirin; Z78.0 Asymptomatic menopausal state; Z98.890 Other specified postprocedural states
CPT/HCPCS: 64635; 64636; J2250; J3301; J2001; J3010; J2795

== ENCOUNTER → 2020-11-12 | Outpatient (CLI) | payer MEDICARE ==
[2020-11-12 12:26] VITALS: BP 114/74; PULSE 80; RESP 16; TEMP 97.7
--- NOTE | 2020-11-12 12:35 | P.PN ---
Subjective Progress Note Date: 11/12/20 This is a follow-up visit for this 75 years old female with a chronic history of severe low back pain, is very close with lumbar degenerative disc disease lumbar spondylosis with lumbar facet arthropathy, status post RFA of medial branch lumbar area (right side ), patient currently complaining of severe localized pain in the right buttock area, she denies any motor or sensory deficit she denies any fever or night sweats and there is no change in bowel movement or urination Objective - Vital Signs Vital signs: Vital Signs Temp 97.7 F 11/12/20 12:20 Pulse 80 11/12/20 12:20 Resp 16 11/12/20 12:20 BP 114/74 11/12/20 12:20 Pulse Ox 99 11/12/20 12:20 - Exam Physical Examinations : -Constitutiona : Cooperative , not in acute distress . -HEENT : nech : supple , no Lymphadenopathy , normal thyroid size . : eyes : no ptosis , no icterus, no photophobia . - neurologic : Cranial nerve II to XII intact , no focal neurological deffecit . -psychatric : alert , oriented X 3 , appropriate affect , intact judgment and insight . -Lymphatic : no Lymphadenopathy . - musculoskeltal : Lumber spine moter stegnth lower extremities ,thigh and legs 5/5 Right side , 5/5 Left side deep tendon reflexes : normal Knee Jerk , normal ankle Jerk lumber facet Loading Test =positive Right , posiutive Left Range of motion of the lumbar spine Flexion 60 degrees, extension 30 degrees strait leg raising test = negative bilaterally Fabere test= negative bilaterally. Sever tenderness over the Sacroiliac joint on the Right . Gaenslen test= positive right . Seated flexion test= positive right . Assessment and Plan Plan: Assessment and plan=1-lumbar degenerative disc disease. 2-lumbar spondylosis with lumbar facet arthropathy without myelopathy. Status post RFA of the medial branch lumbar area 3-right sacroiliitis , right sacroiliac joint dysfunction. Patient could benefit from right-sided sacroiliac joint steroid injection, she will be referred to for evaluation. - PQRS measures = - Patient's medications are documented in the chart. -Tobacco use is negative and counseling.Given. -Patient's has not received pneumococcal vaccine. -Advanced care planning discussed, patient not eligible. -Opiate contract not signed. -Pain positive and follow-up visit/procedure is scheduled. -Patient's blood pressure measured [114/79 ] , and documented in the record ,and patient will follow up with the primary care. -Patient's weight was measured and body mass index within the normal limits and counseling was done. and patient instructed to follow-up with the primary care physician. -Patient was not identified as an unhealthy alcohol user Time with Patient: Less than 30
== END | disposition home or self-care (01) ==
LOC: PNWHC3 10:44
PROVIDERS: ATTEND Specialist
DX: M51.36 Other intervertebral disc degeneration, lumbar region (principal); M47.816 Spondylosis without myelopathy or radiculopathy, lumbar region; M46.1 Sacroiliitis, not elsewhere classified; M53.3 Sacrococcygeal disorders, not elsewhere classified; Z98.890 Other specified postprocedural states
CPT/HCPCS: 99211

== ENCOUNTER → 2020-12-23 | Outpatient (CLI) | payer MEDICARE ==
[2020-12-23 15:48] LABS: African American GFR (CKD) 63.4 (60.0-200.0); Albumin 4.3 g/dL (3.80-4.90); Albumin/Globulin Ratio 2.26 (1.60-3.17); Anion Gap 6.8 mmol/L (4.00-12.00); Calcium 9.7 mg/dL (8.7-10.3); Carbon Dioxide 31.2 mmol/L (21.6-31.8); Chol/HDL Ratio 2.79; Globulin 1.9 g/dL (1.6-3.3); LDL Cholesterol,Calculated 78.2 mg/dL (0.0-131.0); Non-African American GFR(CKD) 54.7 (60.0-200.0); Potassium 4.7 mmol/L (3.5-5.5); Total Bilirubin 1.3 mg/dL (0.2-1.2); Total Protein 6.2 g/dL (6.2-8.2); VLDL Calculation 30.8 mg/dL (5.00-40.00)
== END | disposition home or self-care (01) ==
LOC: LABWHC1 07:25
PROVIDERS: ATTEND Internal Medicine Interventional Cardiology
DX: E78.2 Mixed hyperlipidemia (principal)
CPT/HCPCS: 36415; 80053; 80061

== ENCOUNTER 2021-02-28 08:17 | Emergency (ER) | payer MEDICARE ==
[2021-02-28 08:22] VITALS: BP 113/76; PULSE 67; RESP 18; TEMP 97.8
[2021-02-28 09:00] LABS: Appearance,Urine Cloudy (Clear); Bacteria,Urine Rare /hpf; Bilirubin,Urine Negative (Negative); Blood,Urine Large (Negative); Color,Urine Yellow; Glucose,Urine (UA) Negative (Negative); Ketones,Urine Trace (Negative); Leukocyte Esterase,Urine Large (Negative); Nitrite,Urine Negative (Negative); PH, Urine 6.5 (5.0-8.0); Protein,Urine 2+ (Negative); RBC,Urine >182 /hpf (0-5); Specific Gravity,Urine 1.019 (1.001-1.035); Squamous Epithelial Cell,Urine 1 /hpf (0-4); Urobilinogen,Urine <2.0 mg/dL (<2.0); WBC,Urine >182 /hpf (0-5)
--- NOTE | 2021-02-28 09:00 | ED ---
General Adult HPI - General Chief complaint: Urogenital Stated complaint: Abd Pain/Loss Control of Bladder Time Seen by Provider: 02/28/21 08:20 Source: patient, RN notes reviewed, old records reviewed Mode of arrival: ambulatory Limitations: no limitations - History of Present Illness Initial comments: This is a 76-year-old female who presents to the emergency department complaining that she is having urinary frequency and urgency to the point where she is incontinent sometimes. Patient states she's had urinary tract infections before and she believes she has another urinary tract infection. Patient denies any back pain. Patient denies any fever chills per patient states she had a little suprapubic abdominal pain but currently she does not have any pain. Patient denies any recent injury or trauma. Patient denies any vomiting or diarrhea. - Related Data Home Medications Medication Instructions Recorded Confirmed Calcium Carb-Vit D 250Mg-125Un 1 tab PO HS 05/03/14 10/08/20 [Oscal 250+D 3.125 Mcg (125 Iu)] Simvastatin [Zocor] 20 mg PO HS 05/03/14 10/08/20 lisinopriL [Zestril] 5 mg PO HS 05/03/14 10/08/20 Clopidogrel [Plavix] 75 mg PO DAILY 05/08/15 10/08/20 Aspirin 81 mg PO DAILY 02/13/16 10/08/20 Previous Rx's Medication Instructions Recorded Nitrofurantoin Monohyd/M-Cryst 100 mg PO Q12HR #14 cap 02/28/21 [Macrobid] Allergies Allergy/AdvReac Type Severity Reaction Status Date / Time No Known Allergies Allergy Verified 02/28/21 08:19 Review of Systems ROS Statement: Those systems with pertinent positive or pertinent negative responses have been documented in the HPI. ROS Other: All systems not noted in ROS Statement are negative. Past Medical History Past Medical History: Hyperlipidemia, Hypertension, Osteoarthritis (OA), Pneumonia, Vascular Disorder Additional Past Medical History / Comment(s): See Dr. Andino H&P. "Weak heart." Hx Pneumonia many yrs ago. chronic back pain History of Any Multi-Drug Resistant Organisms: None Reported Past Surgical History: AICD, Bowel Resection, Heart Catheterization, Orthopedic Surgery, Tonsillectomy Additional Past Surgical History / Comment(s): ARTHROSCOPY BILATERAL KNEES, LEFT ILIAC PTBA/STENT, 05-08-15 STENT TO RIGHTT ILIAC, colonoscopy. Past Anesthesia/Blood Transfusion Reactions: No Reported Reaction Additional Past Anesthesia/Blood Transfusion Reaction / Comment(s): With one prior surgery had difficulty waking up. Type of Cardiac Device: Permanent Pacemaker, AICD Device Placement Date:: 2008 and generator change 01/2016 Past Psychological History: No Psychological Hx Reported Smoking Status: Former smoker Past Alcohol Use History: None Reported Past Drug Use History: None Reported - Past Family History Sister(s) Family Medical History: Cancer Additional Family Medical History / Comment(s): Brain Cancer. Father Family Medical History: Myocardial Infarction ([place]) General Exam - General Exam Comments Initial Comments: GENERAL: Patient is well-developed and well-nourished. Patient is nontoxic and well- hydrated and is in no acute distress. ENT: Neck is soft and supple. No significant lymphadenopathy is noted. Oropharynx is clear. Moist mucous membranes. Neck has full range of motion without eliciting any pain. EYES: The sclera were anicteric and conjunctiva were pink and moist. Extraocular movements were intact and pupils were equal round and reactive to light. Eyelids were unremarkable. PULMONARY: Unlabored respirations. Good breath sounds bilaterally. No audible rales rhonchi or wheezing was noted. CARDIOVASCULAR: There is a regular rate and rhythm without any murmurs gallops or rubs. ABDOMEN: Soft and nontender with normal bowel sounds. SKIN: Skin is clear with no lesions or rashes and otherwise unremarkable. NEUROLOGIC: Patient is alert and oriented x3. Cranial nerves II through XII are grossly intact. Motor and sensory are also intact. Normal speech, volume and content. Symmetrical smile. MUSCULOSKELETAL: Normal extremities with adequate strength and full range of motion. Patient has no CVA tenderness LYMPHATICS: No significant lymphadenopathy is noted PSYCHIATRIC: Normal psychiatric evaluation. Limitations: no limitations Course Vital Signs 02/28/21 08:19 Temperature 97.8 F Pulse Rate 67 Respiratory 18 Rate Blood Pressure 113/76 O2 Sat by Pulse 100 Oximetry Medical Decision Making - Medical Decision Making patient received 2 g of Rocephin in the emergency department. - Lab Data Lab Results 02/28/21 Range/Units 08:45 Urine Color Yellow Urine Appearance Cloudy H (Clear) Urine pH 6.5 (5.0-8.0) Ur Specific [place] 1.019 (1.001-1.035) Urine Protein 2+ H (Negative) Urine Glucose (UA) Negative (Negative) Urine Ketones Trace H (Negative) Urine Blood Large H (Negative) Urine Nitrite Negative (Negative) Urine Bilirubin Negative (Negative) Urine Urobilinogen <2.0 (<2.0) mg/dL Ur Leukocyte Esterase Large H (Negative) Urine RBC >182 H (0-5) /hpf Urine WBC >182 H (0-5) /hpf Urine WBC Clumps Occasional H (None) /hpf Ur Squamous Epith Cells 1 (0-4) /hpf Urine Bacteria Rare H (None) /hpf Disposition Clinical Impression: Urinary tract infection Disposition: HOME SELF-CARE Condition: Good Instructions (If sedation given, give patient instructions): Urinary Tract Infection in Women (ED) Prescriptions: Nitrofurantoin Monohyd/M-Cryst [Macrobid] 100 mg PO Q12HR #14 cap Is patient prescribed a controlled substance at d/c from ED?: No Referrals: None,Stated [Primary Care Provider] - 1-2 days Time of Disposition: 09:04
[2021-02-28] MEDS ORDERED: cefTRIAXone IN SWFI 1,000 MG/10 ML SYRINGE IVP STA (09:03)
== END 2021-02-28 09:12 | disposition home or self-care (01) ==
LOC: EC 08:17
DX: N39.0 Urinary tract infection, site not specified (principal); B96.89 Other specified bacterial agents as the cause of diseases classified elsewhere; E78.5 Hyperlipidemia, unspecified; I10 Essential (primary) hypertension; M19.90 Unspecified osteoarthritis, unspecified site; Z87.891 Personal history of nicotine dependence; Z79.82 Long term (current) use of aspirin
CPT/HCPCS: 81001; 87086; 87077; 87186; 99283; 96374; J0696

== ENCOUNTER 2021-05-16 22:50 | Emergency (ER) | payer MEDICARE ==
[2021-05-16 22:57] VITALS: BP 143/74; PULSE 80; RESP 19; TEMP 98
[2021-05-16] MEDS ORDERED: AMOXIC-POT CLAV 875-125MG 1 EACH TAB PO STA (23:10)
[2021-05-16] MEDS ORDERED: GELATIN SPONGE,ABSORB (SMALL) 1 EACH SPONGE TOPICAL STA (23:10)
--- NOTE | 2021-05-16 23:11 | ED ---
Animal Bite HPI - General Chief Complaint: Animal Bite Stated Complaint: Cat bite Source: patient Mode of arrival: ambulatory - History of Present Illness Initial Comments: 76-year-old female presents to emergency prompt a chief complaint of cat bite. This occurred yesterday on her right forearm. Cat is vaccinated. Patient reports she had some bleeding which has mostly resolved but today he returned she has not been able to control. Patient is on blood thinners for A. fib. Her vaccinations are up-to-date. Denies any swelling or erythema at the region that is injured - Related Data Home Medications Medication Instructions Recorded Confirmed Calcium Carb-Vit D 250Mg-125Un 1 tab PO HS 05/03/14 10/08/20 [Oscal 250+D 3.125 Mcg (125 Iu)] Simvastatin [Zocor] 20 mg PO HS 05/03/14 10/08/20 lisinopriL [Zestril] 5 mg PO HS 05/03/14 10/08/20 Clopidogrel [Plavix] 75 mg PO DAILY 05/08/15 10/08/20 Aspirin 81 mg PO DAILY 02/13/16 10/08/20 Previous Rx's Medication Instructions Recorded Nitrofurantoin Monohyd/M-Cryst 100 mg PO Q12HR #14 cap 02/28/21 [Macrobid] Amoxicillin/Potassium Clav 1 tab PO Q12HR #20 tab 05/16/21 [Augmentin 875-125 Tablet] Allergies Allergy/AdvReac Type Severity Reaction Status Date / Time No Known Allergies Allergy Verified 05/16/21 22:57 Review of Systems ROS Statement: Those systems with pertinent positive or pertinent negative responses have been documented in the HPI. ROS Other: All systems not noted in ROS Statement are negative. Past Medical History Past Medical History: Hyperlipidemia, Hypertension, Osteoarthritis (OA), Pne umonia, Vascular Disorder Additional Past Medical History / Comment(s): See Dr. Andino H&P. "Weak heart." Hx Pneumonia many yrs ago. chronic back pain History of Any Multi-Drug Resistant Organisms: None Reported Past Surgical History: AICD, Bowel Resection, Heart Catheterization, Orthopedic Surgery, Tonsillectomy Additional Past Surgical History / Comment(s): ARTHROSCOPY BILATERAL KNEES, LEFT ILIAC PTBA/STENT, 05-08-15 STENT TO RIGHTT ILIAC, colonoscopy. Past Anesthesia/Blood Transfusion Reactions: No Reported Reaction Additional Past Anesthesia/Blood Transfusion Reaction / Comment(s): With one prior surgery had difficulty waking up. Type of Cardiac Device: Permanent Pacemaker, AICD Device Placement Date:: 2008 and generator change 01/2016 Past Psychological History: No Psychological Hx Reported Smoking Status: Former smoker Past Alcohol Use History: None Reported Past Drug Use History: None Reported - Past Family History Sister(s) Family Medical History: Cancer Additional Family Medical History / Comment(s): Brain Cancer. Father Family Medical History: Myocardial Infarction ([place]) General Exam Limitations: no limitations General appearance: alert, in no apparent distress Head exam: Present: atraumatic, normocephalic, normal inspection Eye exam: Present: normal appearance Pupils: Present: normal accommodation ENT exam: Present: normal exam, normal oropharynx, mucous membranes moist Neck exam: Present: normal inspection, full ROM Respiratory exam: Present: normal lung sounds bilaterally. Absent: respiratory distress Cardiovascular Exam: Present: regular rate, normal rhythm, normal heart sounds Extremities exam: Present: full ROM, normal capillary refill. Absent: normal inspection (Skin tear noted on the right forearm. 2 small puncture wounds are also noted nearby), tenderness (No tenderness at injured site), pedal edema, joint swelling, calf tenderness Back exam: Present: normal inspection, full ROM Neurological exam: Present: alert, oriented X3 Psychiatric exam: Present: normal affect, normal mood Skin exam: Present: warm, dry, intact, normal color Course Vital Signs 05/16/21 22:54 Temperature 98 F Pulse Rate 80 Respiratory 19 Rate Blood Pressure 143/74 O2 Sat by Pulse 100 Oximetry Medical Decision Making - Medical Decision Making 76-year-old female presents to emergency Department with a chief complaint of a cat bite. Patient will be started on Augmentin. Gelfoam was applied at the skin tear site. Area was cleaned. Case discussed with physician. Disposition Clinical Impression: Cat bite, Bite by animal Disposition: HOME SELF-CARE Condition: Stable Instructions (If sedation given, give patient instructions): Animal Bite (ED) Additional Instructions: Please return to the Emergency Department if symptoms worsen or any other concerns. Prescriptions: Amoxicillin/Potassium Clav [Augmentin 875-125 Tablet] 1 tab PO Q12HR #20 tab Is patient prescribed a controlled substance at d/c from ED?: No Referrals: None,Stated [Primary Care Provider] - 1-2 days Time of Disposition: 23:11
== END 2021-05-16 23:51 | disposition home or self-care (01) ==
LOC: EC 22:50
DX: S51.811A Laceration without foreign body of right forearm, initial encounter (principal); I10 Essential (primary) hypertension; E78.5 Hyperlipidemia, unspecified; M19.90 Unspecified osteoarthritis, unspecified site; Z79.82 Long term (current) use of aspirin; Z79.01 Long term (current) use of anticoagulants; Z79.02 Long term (current) use of antithrombotics/antiplatelets; Z79.899 Other long term (current) drug therapy; Z87.891 Personal history of nicotine dependence; W55.01XA Bitten by cat, initial encounter
CPT/HCPCS: 99283

== ENCOUNTER → 2021-07-10 | Outpatient (CLI) | payer MEDICARE ==
[2021-07-10 23:44] LABS: African American GFR (CKD) 56.1 (60.0-200.0); Albumin 4.6 g/dL (3.80-4.90); Albumin/Globulin Ratio 1.84 (1.60-3.17); Anion Gap 15.8 mmol/L (4.00-12.00); BUN/Creat Ratio 17.27 Ratio (12.00-20.00); Calcium 9.8 mg/dL (8.7-10.3); Carbon Dioxide 22.2 mmol/L (21.6-31.8); Chol/HDL Ratio 2.43; Globulin 2.5 g/dL (1.6-3.3); LDL Cholesterol,Calculated 79.4 mg/dL (0.0-131.0); Non-African American GFR(CKD) 48.4 (60.0-200.0); Potassium 4.5 mmol/L (3.5-5.5); Total Bilirubin 1.4 mg/dL (0.2-1.2); Total Protein 7.1 g/dL (6.2-8.2); VLDL Calculation 19.6 mg/dL (5.00-40.00)
== END | disposition home or self-care (01) ==
LOC: LABWHC1 06:59
PROVIDERS: ATTEND Internal Medicine Interventional Cardiology
DX: E78.2 Mixed hyperlipidemia (principal)
CPT/HCPCS: 36415; 80053; 80061

== ENCOUNTER → 2022-01-16 | Outpatient (CLI) | payer MEDICARE ==
[2022-01-16 12:27] LABS: ALT 19 U/L (8-44); AST 28 U/L (13-35); Chol/HDL Ratio 2.58 Ratio; LDL Cholesterol,Calculated 91.2 mg/dL (0.0-131.0)
== END | disposition home or self-care (01) ==
LOC: LABWHC1 07:59
PROVIDERS: ATTEND Internal Medicine Interventional Cardiology
DX: E78.2 Mixed hyperlipidemia (principal)
CPT/HCPCS: 36415; 80061; 84450; 84460

== ENCOUNTER → 2022-02-19 | Outpatient (CLI) | payer MEDICARE ==
[2022-02-19 10:41] LABS: HCT 47.3 % (37.2-46.3); HGB 14.9 g/dL (12.0-15.0); MCH 30.6 pg (27.0-32.0); MCHC 31.5 g/dL (32.0-37.0); MCV 97.1 fL (80.0-97.0); Mean Platelet Volume 9.9 fL (9.5-12.2); NRBC Per 100 WBC 0 /100 WBCS (0.0-0.0); Platelet Count 209 X 10*3/uL (140-440); RBC 4.87 X 10*6/uL (4.10-5.20); RDW 13.9 % (11.5-14.5); WBC 7.65 X 10*3/uL (4.50-10.00)
[2022-02-19 13:18] LABS: African American GFR (CKD) 49.6 (60.0-200.0); Anion Gap 15.2 mmol/L (10.00-18.00); Blood Urea Nitrogen 22.1 mg/dL (9.0-27.0); Carbon Dioxide 23.6 mmol/L (20.0-27.5); Non-African American GFR(CKD) 42.8 (60.0-200.0); Potassium 4.8 mmol/L (3.5-5.5)
== END | disposition home or self-care (01) ==
LOC: LABPAT 07:00
PROVIDERS: ATTEND Internal Medicine Clinical Cardiac Electrophysiology
DX: Z01.812 Encounter for preprocedural laboratory examination (principal); I48.0 Paroxysmal atrial fibrillation
CPT/HCPCS: 36415; 80051; 82565; 84520; 85027

== ENCOUNTER → 2022-03-02 | Day surgery (SDC) | payer MEDICARE ==
[~2022-03-02] MED LIST changes: -LACTATED RINGERS 1,000 ML IV ONE; -LIDOCAINE 1% (10MG/ML) FOR IV START INTRADERMA ONE; -LIDOCAINE 1% INJ 10MG/ML (20 ML MDV) ONE; -MIDAZOLAM 2 MG/2 ML VIAL ONE; +PROPOFOL 10 MG/ML 20 ML VIAL IV ONE; -ROPIVACAINE 5MG/ML 20ML VIAL ONE; +SODIUM CHLORIDE 0.9% 1,000 ML IV SCH; -TRIAMCINOLONE ACETONIDE 40 MG/ML 1 ML VIAL ONE; -fentaNYL (PF) 50 MCG/ML 2 ML AMP ONE
[2022-03-02 06:31] VITALS: TEMP 98
--- NOTE | 2022-03-02 08:00 | P.EPPROC ---
- EP Procedure Note Electrophysiology Procedure Note: Diagnosis Cardiomyopathy CHF Single-chamber ICD, [facility] [facility] medical History of T-wave oversensing, currently sensitivity programmed to 0.3 mV Procedure DFT testing and anesthesia ICD interrogation with reprogramming Procedure details Patient has a single chamber ICD,[employer] Ellipse VR Pacing threshold in the right ventricle 0.75 V at 0.5 ms P waves 9.4 mV and pacing impedance 700 ohms High-voltage impedance 61 ohms VF was induced and successfully defibrillated with 10 J shock anodal co nfiguration High-voltage impedance 61 ohms charge time 1.9 seconds Several dropouts were noted at least sensitivity of 1.0 mV Device then reprogrammed to the [employer] programming Sensitivity was reprogrammed to 0.3 mV Plan Continue current medications follow-up for Dr. Goodman
[2022-03-02 08:22] VITALS: RESP 16
[2022-03-02 08:43] VITALS: BP 128/62; PULSE 49
== END ==
LOC: CATHEP 05:59
PROVIDERS: ATTEND Internal Medicine Clinical Cardiac Electrophysiology
DX: I42.9 Cardiomyopathy, unspecified (principal); Z45.02 Encounter for adjustment and management of automatic implantable cardiac defibrillator; I50.9 Heart failure, unspecified; E78.2 Mixed hyperlipidemia; I73.9 Peripheral vascular disease, unspecified; Z20.822 Contact with and (suspected) exposure to COVID-19; I25.10 Atherosclerotic heart disease of native coronary artery without angina pectoris; M19.90 Unspecified osteoarthritis, unspecified site; Z98.890 Other specified postprocedural states; Z87.891 Personal history of nicotine dependence; Z79.01 Long term (current) use of anticoagulants; Z79.899 Other long term (current) drug therapy
CPT/HCPCS: 93642; 87635; J2704

== ENCOUNTER 2022-10-16 13:20 | Emergency (ER) | payer MEDICARE ==
[2022-10-16 13:45] VITALS: TEMP 97.6
--- NOTE | 2022-10-16 15:24 | XR ---
EXAMINATION TYPE: XR chest 2V DATE OF EXAM: 10/16/2022 COMPARISON: 10/02/2016 HISTORY: Weakness TECHNIQUE: 2 view FINDINGS: Heart is normal. Lungs are clear. Diaphragm is normal. Bony thorax is intact. There is left axillary pacemaker. There is old healed fracture left clavicle. IMPRESSION: No active cardiopulmonary disease. Normal heart. No adverse change.
[2022-10-16 15:34] LABS: Partial Thromboplastin Time 23.5 sec (22.0-30.0); Prothrombin Time 10.6 sec (9.0-12.0)
[2022-10-16 15:38] LABS: Albumin 4.2 g/dL (3.5-5.0); Calcium 8.5 mg/dL (8.4-10.2); Potassium 5.2 mmol/L (3.5-5.1); Total Bilirubin 1.7 mg/dL (0.2-1.3); Total Protein 7.1 g/dL (6.3-8.2)
[2022-10-16 15:41] LABS: Basophils # (A) 0.1 k/uL (0-0.2); Basophils % (A) 1 %; Eosinophils % (A) 0 %; HCT 42.2 % (34.0-46.0); HGB 14.2 gm/dL (11.4-16.0); Lymphocytes # (A) 0.6 k/uL (1.0-4.8); Lymphocytes % (A) 6 %; MCH 32.4 pg (25.0-35.0); MCHC 33.6 g/dL (31.0-37.0); MCV 96.4 fL (80.0-100.0); Mean Platelet Volume 7.8; Monocytes # (A) 1.1 k/uL (0-1.0); Monocytes % (A) 11 %; Neutrophils # (A) 7.9 k/uL (1.3-7.7); Neutrophils % (A) 81 %; Platelet Count 157 k/uL (150-450); RBC 4.37 m/uL (3.80-5.40); RDW 13.1 % (11.5-15.5); WBC 9.8 k/uL (3.8-10.6)
[2022-10-16 15:44] VITALS: RESP 18
--- NOTE | 2022-10-16 16:12 | CT ---
EXAMINATION TYPE: CT brain wo con DATE OF EXAM: 10/16/2022 COMPARISON: None HISTORY: Weakness and headache. CT DLP: 1072.4 mGycm Automated exposure control for dose reduction was used. Images of the brain obtained without contrast. Ventricles have normal size. There is patchy hypodensity in the periventricular white matter. There i s no mass effect or midline shift. No sign of intracranial hemorrhage. The calvarium is intact. There is normal aeration of the mastoid sinuses. The skull base is intact. There is minimal mucosal thickening in the left side sphenoid sinus. IMPRESSION: Cerebral atrophy. Chronic small vessel ischemia. No acute intracranial abnormality. Mild left-sided s phenoid sinusitis.
[2022-10-16 16:42] LABS: Appearance,Urine Clear (Clear); Bilirubin,Urine Negative (Negative); Blood,Urine Small (Negative); Color,Urine Yellow; Glucose,Urine (UA) Negative (Negative); Ketones,Urine Negative (Negative); Leukocyte Esterase,Urine Negative (Negative); Mucus,Urine Rare /hpf; Nitrite,Urine Negative (Negative); PH, Urine 6.5 (5.0-8.0); Protein,Urine Trace (Negative); RBC,Urine 8 /hpf (0-5); Specific Gravity,Urine 1.022 (1.001-1.035); Squamous Epithelial Cell,Urine <1 /hpf (0-4); Urobilinogen,Urine <2.0 mg/dL (<2.0); WBC,Urine 1 /hpf (0-5)
--- NOTE | 2022-10-16 17:01 | ED ---
General Adult HPI - General Chief complaint: Weakness Stated complaint: weakness, trouble walking Time Seen by Provider: 10/16/22 14:30 Source: patient, family, RN notes reviewed Mode of arrival: ambulatory Limitations: no limitations - History of Present Illness Initial comments: Patient is a pleasant 77-year-old female presenting to the emergency room with complaints of generalized weakness ongoing for approximately 2 days with difficulty ambulating and difficulty with minor tasks such as removing her coat. She previously had an episode of this weakness and was found to have a urinary tract infection. Her family member does report a fever yesterday but is unable to give a temperature. She denies any focal neurological deficits, chest pain, shortness of breath, abdominal pain, nausea, vomiting, dysuria, urinary incontinence or urinary frequency. She denies any chills but does report feeling warm at times with a fever yesterday as stated above. She is vaccinated for Covid and influenza in denies any known exposure to either. Her family member is concerned due to slower responses and mild confusion at times over the last 48 hours however she is alert and orientated on exam. She has a past medical history significant for coronary artery disease, cardiomyopathy with AICD, hyperlipidemia, peripheral arterial disease, chronic hyperkalemia and peripheral vascular disease. - Related Data Home Medications Medication Instructions Recorded Confirmed Calcium Carb-Vit D 250Mg-125Un 1 tab PO HS 05/03/14 03/02/22 [Oscal 250+D 3.125 Mcg (125 Iu)] Simvastatin [Zocor] 20 mg PO HS 05/03/14 03/02/22 lisinopriL [Zestril] 5 mg PO HS 05/03/14 03/02/22 Baclofen 5 mg PO BID 03/02/22 03/02/22 Cetirizine HCl [Zyrtec] 1 tab PO DAILY 03/02/22 03/02/22 Metoprolol Succinate (ER) [Toprol 50 mg PO DAILY 03/02/22 03/02/22 Xl] Rivaroxaban [Xarelto] 15 mg PO DAILY 03/02/22 03/02/22 Allergies Allergy/AdvReac Type Severity Reaction Status Date / Time No Known Allergies Allergy Verified 10/16/22 13:46 Review of Systems ROS Statement: Those systems with pertinent positive or pertinent negative responses have been documented in the HPI. ROS Other: All systems not noted in ROS Statement are negative. Past Medical History Past Medical History: Hyperlipidemia, Hypertension, Osteoarthritis (OA), Pneumonia, Vascular Disorder Additional Past Medical History / Comment(s): See Dr. Andino H&P. "Weak heart." Hx Pneumonia many yrs ago. chronic back pain History of Any Multi-Drug Resistant Organisms: None Reported Past Surgical History: AICD, Bowel Resection, Heart Catheterization, Orthopedic Surgery, Tonsillectomy Additional Past Surgical History / Comment(s): ARTHROSCOPY BILATERAL KNEES, LEFT ILIAC PTBA/STENT, 05-08-15 STENT TO RIGHTT ILIAC, colonoscopy. Past Anesthesia/Blood Transfusion Reactions: No Reported Reaction Additional Past Anesthesia/Blood Transfusion Reaction / Comment(s): With one prior surgery had difficulty waking up. Type of Cardiac Device: Permanent Pacemaker, AICD Device Placement Date:: 2008 and generator change 01/2016 Past Psychological History: No Psychological Hx Reported Smoking Status: Former smoker Past Alcohol Use History: None Reported Past Drug Use History: None Reported - Past Family History Sister(s) Family Medical History: Cancer Additional Family Medical History / Comment(s): Brain Cancer. Father Family Medical History: Myocardial Infarction ([place]) General Exam - General Exam Comments Initial Comments: GENERAL: No acute distress, well developed, well nourished. Appears fatigued. HEENT: Normocephalic, atraumatic. Pupils equal, round, reactive to light. Moist mucous membranes. LUNGS: No respiratory distress. Clear to auscultation, no adventitious sounds, no use of accessory muscles. HEART: Regular rate and rhythm without murmur, rub, or gallop. ABDOMEN: Normal bowel sounds. Soft, non-tender, non-distended. BACK: Normal inspection. EXTREMITIES: No edema. No tenderness. Moves all extremities. Strength equal all extremities. NEUROLOGIC: Slow but appropriate responses. Alert & oriented x 3. CN II-XII grossly intact. PSYCHIATRIC: Normal affect and behavior. DERMATOLOGIC: Skin intact, without rashes or lesions noted. Course Vital Signs 10/16/22 10/16/22 10/16/22 13:40 14:42 15:42 Temperature 97.6 F Pulse Rate 58 L 56 L Respiratory 16 22 18 Rate Blood Pressure 131/64 150/67 O2 Sat by Pulse 97 96 Oximetry 10/16/22 10/16/22 16:45 17:14 Temperature Pulse Rate 64 62 Respiratory 18 18 Rate Blood Pressure 140/59 142/81 O2 Sat by Pulse 95 96 Oximetry Medical Decision Making - Medical Decision Making 77-year-old female presenting to the emergency room with weakness ongoing for 2 days with her family periods of confusion on exam along with fever yesterday. Overall no concerning abnormalities on exam however given comorbidities will begin thorough workup for weakness with CT of the brain, chest x-ray, CBC, CMP, lactic acid, urinalysis, TSH, troponin, coags and cephid swab. CT of the brain images interpreted by me demonstrates cerebral atrophy. No ischemia hemorrhage or mass effect. Chest x-ray image interpreted by me de monstrates no acute cardiopulmonary process. CBC overall stable except neutrophil elevated 7.9 lymphocytes low at 0.6 monocytes elevated at 1.1, CMP reveals chronic hyperkalemia at 5.2, bilirubin elevated at 1.7 AST mildly elevated at 40 TSH normal, coags normal, troponin negative. Swab positive for COVID, influenza and RSV negative. No indication for further workup at this time. Education regarding symptomatic management of COVID discussed. Due to medications not a candidate for Paxlovid. Declines other antiviral therapy. Will discharge home in stable condition with follow-up with her primary care provider was symptomatically management of COVID. Return parameters discussed. Case discussed with Dr. Mijares. - Lab Data Result diagrams: 10/16/22 15:07 10/16/22 15:07 Lab Results 10/16/22 10/16/22 10/16/22 Range/Units 15:07 15:07 15:07 WBC 9.8 (3.8-10.6) k/uL RBC 4.37 (3.80-5.40) m/uL Hgb 14.2 (11.4-16.0) gm/dL Hct 42.2 (34.0-46.0) % MCV 96.4 (80.0-100.0) fL MCH 32.4 (25.0-35.0) pg MCHC 33.6 (31.0-37.0) g/dL RDW 13.1 (11.5-15.5) % Plt Count 157 (150-450) k/uL MPV 7.8 Neutrophils % 81 % Lymphocytes % 6 % Monocytes % 11 % Eosinophils % 0 % Basophils % 1 % Neutrophils # 7.9 H (1.3-7.7) k/uL Lymphocytes # 0.6 L (1.0-4.8) k/uL Monocytes # 1.1 H (0-1.0) k/uL Eosinophils # 0.0 (0-0.7) k/uL Basophils # 0.1 (0-0.2) k/uL PT 10.6 (9.0-12.0) sec INR 1.0 (<1.2) APTT 23.5 (22.0-30.0) sec Sodium 138 (137-145) mmol/L Potassium 5.2 H (3.5-5.1) mmol/L Chloride 103 (98-107) mmol/L Carbon Dioxide 26 (22-30) mmol/L Anion Gap 9 mmol/L BUN 16 (7-17) mg/dL Creatinine 0.94 (0.52-1.04) mg/dL Est GFR (CKD-EPI)AfAm 67 (>60 ml/min/1.73 sqM) Est GFR (CKD-EPI)NonAf 58 (>60 ml/min/1.73 sqM) Glucose 122 H (74-99) mg/dL Plasma Lactic Acid Devin (0.7-2.0) mmol/L Calcium 8.5 (8.4-10.2) mg/dL Total Bilirubin 1.7 H (0.2-1.3) mg/dL AST 40 H (14-36) U/L ALT 27 (4-34) U/L Alkaline Phosphatase 57 (38-126) U/L Troponin I (0.000-0.034) ng/mL Total Protein 7.1 (6.3-8.2) g/dL Albumin 4.2 (3.5-5.0) g/dL TSH 0.932 (0.465-4.680) mIU/L Urine Color Urine Appearance (Clear) Urine pH (5.0-8.0) Ur Specific [place] (1.001-1.035) Urine Protein (Negative) Urine Glucose (UA) (Negative) Urine Ketones (Negative) Urine Blood (Negative) Urine Nitrite (Negative) Urine Bilirubin (Negative) Urine Urobilinogen (<2.0) mg/dL Ur Leukocyte Esterase (Negative) Urine RBC (0-5) /hpf Urine WBC (0-5) /hpf Ur Squamous Epith Cells (0-4) /hpf Urine Mucus (None) /hpf Influenza Type A (PCR) (Not Detectd) Influenza Type B (PCR) (Not Detectd) RSV (PCR) (Not Detectd) SARS-CoV-2 (PCR) (Not Detectd) 10/16/22 10/16/22 10/16/22 Range/Units 15:07 15:07 15:07 WBC (3.8-10.6) k/uL RBC (3.80-5.40) m/uL Hgb (11.4-16.0) gm/dL Hct (34.0-46.0) % MCV (80.0-100.0) fL MCH (25.0-35.0) pg MCHC (31.0-37.0) g/dL RDW (11.5-15.5) % Plt Count (150-450) k/uL MPV Neutrophils % % Lymphocytes % % Monocytes % % Eosinophils % % Basophils % % Neutrophils # (1.3-7.7) k/uL Lymphocytes # (1.0-4.8) k/uL Monocytes # (0-1.0) k/uL Eosinophils # (0-0.7) k/uL Basophils # (0-0.2) k/uL PT (9.0-12.0) sec INR (<1.2) APTT (22.0-30.0) sec Sodium (137-145) mmol/L Potassium (3.5-5.1) mmol/L Chloride (98-107) mmol/L Carbon Dioxide (22-30) mmol/L Anion Gap mmol/L BUN (7-17) mg/dL Creatinine (0.52-1.04) mg/dL Est GFR (CKD-EPI)AfAm (>60 ml/min/1.73 sqM) Est GFR (CKD-EPI)NonAf (>60 ml/min/1.73 sqM) Glucose (74-99) mg/dL Plasma Lactic Acid Devin 1.4 (0.7-2.0) mmol/L Calcium (8.4-10.2) mg/dL Total Bilirubin (0.2-1.3) mg/dL AST (14-36) U/L ALT (4-34) U/L Alkaline Phosphatase (38-126) U/L Troponin I 0.022 (0.000-0.034) ng/mL Total Protein (6.3-8.2) g/dL Albumin (3.5-5.0) g/dL TSH (0.465-4.680) mIU/L Urine Color Urine Appearance (Clear) Urine pH (5.0-8.0) Ur Specific [place] (1.001-1.035) Urine Protein (Negative) Urine Glucose (UA) (Negative) Urine Ketones (Negative) Urine Blood (Negative) Urine Nitrite (Negative) Urine Bilirubin (Negative) Urine Urobilinogen (<2.0) mg/dL Ur Leukocyte Esterase (Negative) Urine RBC (0-5) /hpf Urine WBC (0-5) /hpf Ur Squamous Epith Cells (0-4) /hpf Urine Mucus (None) /hpf Influenza Type A (PCR) Not Detected (Not Detectd) Influenza Type B (PCR) Not Detected (Not Detectd) RSV (PCR) Not Detected (Not Detectd) SARS-CoV-2 (PCR) Detected A (Not Detectd) 10/16/22 Range/Units 16:07 WBC (3.8-10.6) k/uL RBC (3.80-5.40) m/uL Hgb (11.4-16.0) gm/dL Hct (34.0-46.0) % MCV (80.0-100.0) fL MCH (25.0-35.0) pg MCHC (31.0-37.0) g/dL RDW (11.5-15.5) % Plt Count (150-450) k/uL MPV Neutrophils % % Lymphocytes % % Monocytes % % Eosinophils % % Basophils % % Neutrophils # (1.3-7.7) k/uL Lymphocytes # (1.0-4.8) k/uL Monocytes # (0-1.0) k/uL Eosinophils # (0-0.7) k/uL Basophils # (0-0.2) k/uL PT (9.0-12.0) sec INR (<1.2) APTT (22.0-30.0) sec Sodium (137-145) mmol/L Potassium (3.5-5.1) mmol/L Chloride (98-107) mmol/L Carbon Dioxide (22-30) mmol/L Anion Gap mmol/L BUN (7-17) mg/dL Creatinine (0.52-1.04) mg/dL Est GFR (CKD-EPI)AfAm (>60 ml/min/1.73 sqM) Est GFR (CKD-EPI)NonAf (>60 ml/min/1.73 sqM) Glucose (74-99) mg/dL Plasma Lactic Acid Devin (0.7-2.0) mmol/L Calcium (8.4-10.2) mg/dL Total Bilirubin (0.2-1.3) mg/dL AST (14-36) U/L ALT (4-34) U/L Alkaline Phosphatase (38-126) U/L Troponin I (0.000-0.034) ng/mL Total Protein (6.3-8.2) g/dL Albumin (3.5-5.0) g/dL TSH (0.465-4.680) mIU/L Urine Color Yellow Urine Appearance Clear (Clear) Urine pH 6.5 (5.0-8.0) Ur Specific [place] 1.022 (1.001-1.035) Urine Protein Trace H (Negative) Urine Glucose (UA) Negative (Negative) Urine Ketones Negative (Negative) Urine Blood Small H (Negative) Urine Nitrite Negative (Negative) Urine Bilirubin Negative (Negative) Urine Urobilinogen <2.0 (<2.0) mg/dL Ur Leukocyte Esterase Negative (Negative) Urine RBC 8 H (0-5) /hpf Urine WBC 1 (0-5) /hpf Ur Squamous Epith Cells <1 (0-4) /hpf Urine Mucus Rare H (None) /hpf Influenza Type A (PCR) (Not Detectd) Influenza Type B (PCR) (Not Detectd) RSV (PCR) (Not Detectd) SARS-CoV-2 (PCR) (Not Detectd) - Radiology Data Radiology results: report reviewed, image reviewed Disposition Clinical Impression: COVID-19 Disposition: HOME SELF-CARE Condition: Stable Instructions (If sedation given, give patient instructions): COVID-19 (Coronavirus Disease 2019) (ED) Additional Instructions: Please quarantine for 5 days after testing positive and restart quarantine if symptoms worsen. Please utilize Tylenol as needed for fevers and pain. Taking vitamin C, Zinc, vitamin D 50 mcg, and melatonin may help symptom recovery. Please return to the Emergency Department if symptoms worsen or any other co ncerns. Is patient prescribed a controlled substance at d/c from ED?: No Referrals: Mathieu Philippe MD [Primary Care Provider] - 1-2 days Time of Disposition: 17:01
[2022-10-16 17:15] VITALS: BP 142/81; PULSE 62
== END 2022-10-16 17:25 | disposition home or self-care (01) ==
LOC: EC 13:20
DX: U07.1 COVID-19 (principal); E78.5 Hyperlipidemia, unspecified; I10 Essential (primary) hypertension; M19.90 Unspecified osteoarthritis, unspecified site; Z87.891 Personal history of nicotine dependence
CPT/HCPCS: 36415; 70450; 71046; 80053; 81001; 83605; 84443; 84484; 85025; 85610; 85730; 87636; 93005; 99285

== ENCOUNTER 2022-11-27 12:22 | Emergency (ER) | payer MEDICARE ==
[2022-11-27 12:26] VITALS: BP 119/71; PULSE 73; RESP 18; TEMP 98.2
[2022-11-27] MEDS ORDERED: KETOROLAC 15 MG/ML 1 ML VIAL IM STA (12:32)
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
--- NOTE | 2022-11-27 13:06 | XR ---
EXAMINATION TYPE: XR ankle limited LT, XR foot complete LT DATE OF EXAM: 11/27/2022 CLINICAL HISTORY: Pain and bruising after injury TECHNIQUE: Frontal and lateral images of the left ankle and foot are obtained. COMPARISON: None. FINDINGS: Osseous structures are demineralized. There is no acute fracture/dislocation evident in the left ankle. The ankle mortise appears within normal limits. The overlying soft tissue appears unre markable. There is no acute fracture or dislocation evident in the left foot. Hallux valgus positioning first m etatarsophalangeal joint mild to moderate narrowing at this level. Linear lucency through base of fi fth metatarsal suspicious for nondisplaced fracture. Mild diffuse subcutaneous edema is seen. IMPRESSION: There is suspected acute nondisplaced transverse fracture through base of fifth metatars al. (Jimenez type fracture)
[2022-11-27] MEDS ORDERED: ACET/COD 300 MG/30 MG STARTER PACK 6 TAB BTL PO STA (13:39)
== END 2022-11-27 13:55 | disposition home or self-care (01) ==
LOC: EC 12:22
DX: S92.352A Displaced fracture of fifth metatarsal bone, left foot, initial encounter for closed fracture (principal); E78.5 Hyperlipidemia, unspecified; I10 Essential (primary) hypertension; M19.90 Unspecified osteoarthritis, unspecified site; Z87.891 Personal history of nicotine dependence; Z79.899 Other long term (current) drug therapy; X58.XXXA Exposure to other specified factors, initial encounter
CPT/HCPCS: 73600; 73630; 99283; 96372; J1885

== ENCOUNTER → 2023-01-17 | Outpatient (CLI) | payer MEDICARE ==
[2023-01-17 14:36] LABS: ALT 27 U/L (8-44); AST 32 U/L (13-35); African American GFR (CKD) 50.1 (60.0-200.0); Albumin 4.7 g/dL (3.8-4.9); Albumin/Globulin Ratio 1.68 (1.60-3.17); Alkaline Phosphatase 57 U/L (41-126); BUN/Creat Ratio 17.25 Ratio (12.00-20.00); Blood Urea Nitrogen 20.7 mg/dL (9.0-27.0); Calcium 9.8 mg/dL (8.7-10.3); Chloride 102 mmol/L (96-109); Chol/HDL Ratio 2.76 Ratio; Globulin 2.8 g/dL (1.6-3.3); Glucose 115 mg/dL (70-110); LDL Cholesterol,Calculated 91.2 mg/dL (0.0-131.0); Non-African American GFR(CKD) 43.3 (60.0-200.0); Potassium 4.6 mmol/L (3.5-5.5); Sodium 141 mmol/L (135-145); Total Protein 7.5 g/dL (6.2-8.2)
== END | disposition home or self-care (01) ==
LOC: LABWHC1 07:59
PROVIDERS: ATTEND Internal Medicine Interventional Cardiology
DX: E78.2 Mixed hyperlipidemia (principal)
CPT/HCPCS: 36415; 80053; 80061

== ENCOUNTER 2023-04-18 12:11 | Emergency (ER) | payer MEDICARE ==
[2023-04-18 12:18] VITALS: BP 95/56; PULSE 62; RESP 16; TEMP 97.4
--- NOTE | 2023-04-18 12:55 | ED ---
Extremity Problem HPI - General Chief complaint: Extremity Problem,Nontraumatic Stated complaint: right toes blue/diabetic Time Seen by Provider: 04/18/23 12:40 Source: patient, family (daughter), RN notes reviewed, old records reviewed Mode of arrival: ambulatory Limitations: no limitations - History of Present Illness Initial comments: Nontoxic appearing plesant 78-year-old female ,alert and oriented 4, presents to the emergency room with her daughter. Daughter states that she noticed bruising to the patient's right great toe on Tuesday. Patient denies any injury or pain. Today noticed the second toe is starting to look bruised. Daughter states that she checked her mothers blood glucose level and it was 246 and she is concerned for diabetes. Has been told she is prediabetic. She has an appointment with her primary care doctor tomorrow. Does have a history of hypertension, osteopenia arthritis, coronary artery disease with an AICD. Is taking xarelto daily. MD Complaint: other (bruising to right great toe and second toe) -: days(s) (3) Location: right, toe History of Same: No Severity scale (1-10): 0 Associated Symptoms: denies other symptoms - Related Data Home Medications Medication Instructions Recorded Confirmed Calcium Carb-Vit D 250Mg-125Un 1 tab PO HS 05/03/14 03/02/22 [Oscal 250+D 3.125 Mcg (125 Iu)] Simvastatin [Zocor] 20 mg PO HS 05/03/14 03/02/22 lisinopriL [Zestril] 5 mg PO HS 05/03/14 03/02/22 Baclofen 5 mg PO BID 03/02/22 03/02/22 Cetirizine HCl [Zyrtec] 1 tab PO DAILY 03/02/22 03/02/22 Metoprolol Succinate (ER) [Toprol 50 mg PO DAILY 03/02/22 03/02/22 Xl] Rivaroxaban [Xarelto] 15 mg PO DAILY 03/02/22 03/02/22 Allergies Allergy/AdvReac Type Severity Reaction Status Date / Time No Known Allergies Allergy Verified 04/18/23 12:19 Review of Systems ROS Statement: Those systems with pertinent positive or pertinent negative responses have been documented in the HPI. ROS Other: All systems not noted in ROS Statement are negative. Past Medical History Past Medical History: Hyperlipidemia, Hypertension, Osteoarthritis (OA), Pneumonia, Vascular Disorder Additional Past Medical History / Comment(s): See Dr. Andino H&P. "Weak heart." Hx Pneumonia many yrs ago. chronic back pain History of Any Multi-Drug Resistant Organisms: None Reported Past Surgical History: AICD, Bowel Resection, Heart Catheterization, Orthopedic Surgery, Tonsillectomy Additional Past Surgical History / Comment(s): ARTHROSCOPY BILATERAL KNEES, LEFT ILIAC PTBA/STENT, 05-08-15 STENT TO RIGHTT ILIAC, colonoscopy. Past Anesthesia/Blood Transfusion Reactions: No Reported Reaction Additional Past Anesthesia/Blood Transfusion Reaction / Comment(s): With one prior surgery had difficulty waking up. Type of Cardiac Device: Permanent Pacemaker, AICD Device Placement Date:: 2008 and generator change 01/2016 Past Psychological History: No Psychological Hx Reported Smoking Status: Former smoker Past Alcohol Use History: None Reported Past Drug Use History: None Reported - Past Family History Sister(s) Family Medical History: Cancer Additional Family Medical History / Comment(s): Brain Cancer. Father Family Medical History: Myocardial Infarction ([place]) General Exam Limitations: no limitations General appearance: alert, in no apparent distress Head exam: Present: atraumatic Eye exam: Present: normal appearance. Absent: scleral icterus, conjunctival injection, periorbital swelling Neck exam: Present: full ROM. Absent: meningismus Respiratory exam: Absent: respiratory distress, accessory muscle use Cardiovascular Exam: Present: regular rate Right Lower Leg exam: Present: full ROM. Absent: tenderness Ankle exam: Present: full ROM. Absent: tenderness Foot/Toe exam: Present: full ROM, tenderness (lateral aspect great toe), ecchymosis (1st and 2nd toes). Absent: swelling, abrasion, laceration, deformity, crepitus, dislocation, erythema, puncture wound, calcaneal tenderness, tenderness at base of 5th metatarsal Neurovascular tendon exam: Present: no vascular compromise. Absent: abnormal cap refill, extremity cold to touch, pallor, foot drop Neurological exam: Present: alert, oriented X3 Psychiatric exam: Present: normal affect, normal mood Skin exam: Present: warm, dry, normal color. Absent: cyanosis, diaphoretic, petechiae, pallor Course Vital Signs 04/18/23 12:14 Temperature 97.4 F L Pulse Rate 62 Respiratory 16 Rate Blood Pressure 95/56 O2 Sat by Pulse 95 Oximetry Medical Decision Making - Medical Decision Making Was pt. sent in by a medical professional or institution ([facility], [employer], urgent care, hospital, or alf...) When possible be specific @ -No Did you speak to anyone other than the patient for history (EMS, parent, family, police, friend...)? What history was obtained from this source @ -Patient's daughter concerned for elevated blood glucose levels at home Did you review nursing and triage notes (agree or disagree)? Why? @ -I reviewed and agree with nursing and triage notes Were old charts reviewed (outside hosp., previous admission, EMS record, old EKG, old radiological studies, urgent care reports/EKG's, alf records)? Report findings @ -No old charts were reviewed Differential Diagnosis (chest pain, altered mental status, abdominal pain women, abdominal pain men, vaginal bleeding, weakness, fever, dyspnea, syncope, headache, dizziness, GI bleed, back pain, seizure, CVA, palpatations, mental health, musculoskeletal)? @ -Contusion, ulcer, cellulitis, fracture EKG interpreted by me (3pts min.). @ -n/a X-rays interpreted by me (1pt min.). @ -yes X-ray of the right first and second digits shows no evidence of fracture or dislocation. No foreign body. CT interpreted by me (1pt min.). @ -None done U/S interpreted by me (1pt. min.). @ -None done What testing was considered but not performed or refused? (CT, X-rays, U/S, labs)? Why? @ -None What meds were considered but not given or refused? Why? @ -None Did you discuss the management of the patient with other professionals (professionals i.e. [facility] Am[facility]al, [employer], lab, RT, psych nurse, social sciences chair, agriculture internship, teacher, guest relation officer, upper caser)? Give summary @ -No Was smoking cessation discussed for >3mins.? @ -No Was critical care preformed (if so, how long)? @ -No Were there social determinants of health that impacted care today? How? (Homelessness, low income, unemployed, alcoholism, drug addiction, transportation, low edu. Level, literacy, decrease access to med. care, shelter, rehab)? @ -No Was there de-escalation of care discussed even if they declined (Discuss DNR or withdrawal of care, Hospice)? DNR status @ -No What co-morbidities impacted this encounter? (DM, HTN, Smoking, COPD, CAD, Cancer, CVA, ARF, Chemo, Hep., AIDS, mental health diagnosis, sleep apnea, morbid obesity)? @ -Coronary artery disease, hypertension, osteoarthritis, hyperlipidemia, vascular disease Was patient admitted / discharged? Hospital course, mention meds given and route, prescriptions, significant lab abnormalities, going to OR and other pertinent info. @ -Discharged Nontoxic appearing plesant 78-year-old female ,alert and oriented 4, presents to the emergency room with her daughter. Daughter states that she noticed bruising to the patient's right great toe on Tuesday. Patient denies any injury or pain. Today noticed the second toe is starting to look bruised. Daughter states that she checked her mothers blood glucose level and it was 246 and she is concerned for diabetes. Has been told she is prediabetic. She has an appointment with her primary care doctor tomorrow. Does have a history of hypertension, osteopenia arthritis, coronary artery disease with an AICD. Is taking xarelto daily. Patient's daughter concerned that this may be a diabetic complication however patient does not have a diagnosis of diabetes. States that her blood glucose levels at the doctor's office have been "prediabetic". Blood glucose 76 Physical exam reveals bruising noted to the first and second digits right foot. No lacerations or broken skin. Sensation is intact. No concern for cellulitis. Radiologist interpretation access valgus deformity great toe right foot with no underlying acute abnormality radiographic evidence Patient is discharged home with her daughter directed to keep her appointment with her doctor tomorrow as scheduled. This is likely bruising from an unknown injury , complicated by use of Xarelto. Undiagnosed new problem with uncertain prognosis? @ -No] Drug Therapy requiring intensive monitoring for toxicity (Heparin, Nitro, Insulin, Cardizem)? @ -[No] Were any procedures done? @ -[No] Diagnosis/symptom? @ -Contusion first second digits right foot Acute, or Chronic, or Acute on Chronic? @ -Acute Uncomplicated (without systemic symptoms) or Complicated (systemic symptoms)? @ -Uncomplicated Side effects of treatment? @ -[No] Exacerbation, Progression, or Severe Exacerbation? @ -[No] Poses a threat to life or bodily function? How? (Chest pain, [place], [place], pneumonia, PE, COPD, DKA, ARF, appy, cholecystitis, CVA, Diverticulitis, Homicidal, Suicidal, threat to staff... and all critical care pts) @ -[No] - Lab Data Lab Results 04/18/23 Range/Units 12:57 POC Glucose (mg/dL) 76 (70-110) mg/dL POC Glu Advertising Traffic Manager ID Pinedakaruna Dinora Disposition Clinical Impression: Contusion Disposition: HOME SELF-CARE Condition: Good Instructions (If sedation given, give patient instructions): Foot Contusion (ED) Additional Instructions: X-ray today shows no evidence of fracture. Keep your appointment with the primary care doctor tomorrow for reevaluation. Is patient prescribed a controlled substance at d/c from ED?: No Referrals: Mathieu Philippe MD [Primary Care Provider] - 1-2 days Time of Disposition: 13:37
[2023-04-18 12:59] LABS: Glucose,Whole Blood 76 mg/dL (70-110)
--- NOTE | 2023-04-18 13:30 | XR ---
EXAMINATION TYPE: XR toes RT DATE OF EXAM: 04/18/2023 COMPARISON: None HISTORY: Great toe blue toe TECHNIQUE: 3 view right great toe FINDINGS: Hallux valgus deformity is present. Joint spaces otherwise appear preserved. Soft tissues a ppear normal. No acute fractures are evident. IMPRESSION: 1. Excess valgus deformity great toe right foot. 2. No underlying acute abnormality radiographically evident.
== END 2023-04-18 14:17 | disposition home or self-care (01) ==
LOC: EC 12:11
DX: S90.111A Contusion of right great toe without damage to nail, initial encounter (principal); S90.121A Contusion of right lesser toe(s) without damage to nail, initial encounter; I10 Essential (primary) hypertension; E78.5 Hyperlipidemia, unspecified; I25.10 Atherosclerotic heart disease of native coronary artery without angina pectoris; Z79.01 Long term (current) use of anticoagulants; Z79.899 Other long term (current) drug therapy; Z87.891 Personal history of nicotine dependence; X58.XXXA Exposure to other specified factors, initial encounter
CPT/HCPCS: 36415; 99283

== ENCOUNTER → 2023-05-10 | Outpatient (CLI) | payer MEDICARE ==
[2023-05-10 16:17] LABS: Basophils # (A) 0.03 X 10*3/uL (0.00-0.10); Basophils % (A) 0.4 %; Eosinophils # (A) 0.08 X 10*3/uL (0.04-0.35); Eosinophils % (A) 1.1 %; HCT 46.4 % (37.2-46.3); HGB 14.5 d/dL (12.0-15.0); Lymphocytes # (A) 2.14 X 10*3/uL (0.90-5.00); Lymphocytes % (A) 28.3 %; MCH 30.5 pg (27.0-32.0); MCHC 31.3 d/dL (32.0-37.0); MCV 97.5 FL (80.0-97.0); Mean Platelet Volume 10.2 FL (9.5-12.2); Monocytes # (A) 0.83 X 10*3/uL (0.20-1.00); NRBC Per 100 WBC 0 X 10*3/uL (0.00-0.01); Neutrophils # (A) 4.47 X 10*3/uL (1.80-7.70); Neutrophils % (A) 58.9 %; Platelet Count 211 X 10*3/uL (140-440); RBC 4.76 X 10*6/uL (4.10-5.20); RDW 13.6 % (11.5-14.5); WBC 7.57 X 10*3/uL (4.50-10.00)
[2023-05-10 18:11] LABS: VLDL Calculation 16.76 mg/dL (5.00-40.00)
[2023-05-10 18:15] LABS: ALT 18 U/L (8-44); AST 29 U/L (13-35); Albumin 4.6 d/dL (3.8-4.9); Albumin/Globulin Ratio 1.77 Ratio (1.60-3.17); Alkaline Phosphatase 46 U/L (41-126); BUN/Creat Ratio 21.29 Ratio (12.00-20.00); Blood Urea Nitrogen 29.8 mg/dL (9.0-27.0); Calcium 10.4 mg/dL (8.7-10.3); Carbon Dioxide 23.1 mmol/L (21.6-31.8); Chloride 102 mmol/L (96-109); Chol/HDL Ratio 2.13 Ratio; Globulin 2.6 d/dL (1.6-3.3); Glucose 113 mg/dL (70-110); LDL Cholesterol,Calculated 65.9 mg/dL (0.0-131.0); Sodium 142 mmol/L (135-145); T4, Free (Free Thyroxine) 1.38 ng/dL (0.80-1.80); Total Bilirubin 1.2 mg/dL (0.3-1.2); Total Protein 7.2 d/dL (6.2-8.2)
== END | disposition home or self-care (01) ==
LOC: LABWHC1 07:25
PROVIDERS: ATTEND Internal Medicine Interventional Cardiology
DX: E53.9 Vitamin B deficiency, unspecified (principal); E78.2 Mixed hyperlipidemia; E55.9 Vitamin D deficiency, unspecified; R41.3 Other amnesia; R26.81 Unsteadiness on feet
CPT/HCPCS: 36415; 80053; 80061; 82306; 82607; 84207; 84439; 84443; 84481; 85025

== ENCOUNTER → 2023-10-28 | Outpatient (CLI) | payer MEDICARE ==
[2023-10-28 16:31] LABS: ALT 21 U/L (8-44); AST 30 U/L (13-35); Albumin 4.2 g/dL (3.8-4.9); Albumin/Globulin Ratio 1.56 Ratio (1.60-3.17); Alkaline Phosphatase 57 U/L (41-126); BUN/Creat Ratio 14.64 Ratio (12.00-20.00); Blood Urea Nitrogen 16.1 mg/dL (9.0-27.0); Carbon Dioxide 26.2 mmol/L (21.6-31.8); Chloride 102 mmol/L (96-109); Chol/HDL Ratio 2.49 Ratio; Globulin 2.7 g/dL (1.6-3.3); Glucose 141 mg/dL (70-110); LDL Cholesterol,Calculated 66.2 mg/dL (0.0-131.0); Potassium 3.8 mmol/L (3.5-5.5); Sodium 143 mmol/L (135-145); Total Protein 6.9 g/dL (6.2-8.2)
== END | disposition home or self-care (01) ==
LOC: LABWHC1 12:34
PROVIDERS: ATTEND Internal Medicine Interventional Cardiology
DX: E78.2 Mixed hyperlipidemia (principal)
CPT/HCPCS: 36415; 80053; 80061

== ENCOUNTER → 2023-12-01 | Outpatient (CLI) | payer MEDICARE ==
[2023-12-01 13:23] LABS: African American GFR (CKD) 58 (>60 ml/min/1.73 sqM); Blood Urea Nitrogen 24 mg/dL (7-17); Non-African American GFR(CKD) 50 (>60 ml/min/1.73 sqM)
--- NOTE | 2023-12-01 14:45 | CT ---
EXAMINATION TYPE: CT chest w con CT DLP: 182.1 mGycm, Automated exposure control for dose reduction was used. DATE OF EXAM: 12/01/2023 2:13 PM COMPARISON: PET/CT 02/29/2020, CT low dose lung cancer screening 12/14/2019. CLINICAL INDICATION:Female, 78 years old with history of R91.1 SPN; PHH, nodule TECHNIQUE: Multiple axial images were obtained through the chest following the administration of 100 cc of Isovue 300. . Coronal and sagittal reformats reviewed. FINDINGS: LUNGS/ PLEURA: No pulmonary mass. Mild centrilobular emphysematous changes. No pleural effusion or pn eumothorax. Bibasilar dependent subsegmental atelectasis. Stable scattered pulmonary nodules. Exampl es include a stable 3 mm nodule in the right lower lobe subpleural location (series 4, image 52). Ano ther example is medial right middle lung 3 mm nodule (series 4, image 27) and a peripheral left lower lobe 4 mm pulmonary nodule (series 4, image 33). Previously seen nodular opacity within the right lo wer lobe is no longer visualized. AIRWAY: Patent and unremarkable.. HEART: Size within normal limits.Increased density within the coronary arteries may relate to scleros is versus vascular stents.. Left chest wall AICD identified. No pericardial effusion. MEDIASTINUM: No gross evidence of adenopathy. VASCULATURE: No aortic aneurysm. Atherosclerotic calcification of the aorta and its branches. MUSCULOSKELETAL: No acute osseous abnormalities SOFT TISSUES/LYMPH NODES: Unremarkable. LOWER NECK: No significant findings. UPPER ABDOMEN: Left renal cortical scarring redemonstrated. IMPRESSION: 1. Stable scattered pulmonary nodules measuring 5 mm or less. No new or enlarging pulmonary nodules 2. Mild COPD changes.
== END | disposition home or self-care (01) ==
LOC: RADCTMAIN 12:49
PROVIDERS: ATTEND Internal Medicine Geriatric Medicine
DX: R91.8 Other nonspecific abnormal finding of lung field (principal); J44.9 Chronic obstructive pulmonary disease, unspecified
CPT/HCPCS: 82565; 84520; 71260; 36415; Q9967

== ENCOUNTER → 2024-02-17 | Outpatient (CLI) | payer MEDICARE ==
--- NOTE | 2024-02-23 15:39 | XR ---
EXAMINATION TYPE: XR lumbar spine 2 or 3V DATE OF EXAM: 02/17/2024 2:09 PM CLINICAL INDICATION:Female, 79 years old with history of M48 SPINAL STENOSIS, SITE UNSPECIFIED; [facility] COMPARISON: CT lumbar spine 05/04/2020 TECHNIQUE: XR lumbar spine 2 or 3V - Frontal, lateral and coned in L5-S1 lateral views of the spine. FINDINGS: No evidence of any acute osseous pathology. No evidence of loss of vertebral body height is seen. Le ft convex scoliosis centered at L3. . Multilevel degenerative disc disease with marked loss of disc height at several levels. Mild multilev el endplate spondylosis. . IMPRESSION: 1. No acute fracture. 2. multilevel disc degeneration and endplate spondylosis.
== END | disposition home or self-care (01) ==
LOC: RADXRMAIN 13:44
PROVIDERS: ATTEND Internal Medicine Geriatric Medicine
DX: M47.816 Spondylosis without myelopathy or radiculopathy, lumbar region (principal); M48.061 Spinal stenosis, lumbar region without neurogenic claudication; M51.36 Other intervertebral disc degeneration, lumbar region
CPT/HCPCS: 72100

== ENCOUNTER 2024-07-21 12:40 | Observation (INO) | payer MEDICARE ==
[2024-07-21 14:12] LABS: Basophils % (A) 0 %; Eosinophils # (A) 0.1 k/uL (0-0.7); Eosinophils % (A) 0 %; HCT 44.3 % (34.0-46.0); HGB 13.9 gm/dL (11.4-16.0); Hypochromasia Slight; Lymphocytes # (A) 0.9 k/uL (1.0-4.8); Lymphocytes % (A) 6 %; MCH 30.9 pg (25.0-35.0); MCHC 31.3 g/dL (31.0-37.0); MCV 98.5 fL (80.0-100.0); Mean Platelet Volume 7.4; Monocytes # (A) 1.3 k/uL (0-1.0); Monocytes % (A) 8 %; Neutrophils # (A) 13.7 k/uL (1.3-7.7); Neutrophils % (A) 85 %; Platelet Count 234 k/uL (150-450); RDW 14.8 % (11.5-15.5); WBC 16.1 k/uL (3.8-10.6)
[2024-07-21] MEDS: SODIUM CHLORIDE 0.9% 500 ML 500 ML IV STA (14:19)
[2024-07-21 14:26] LABS: ALT 16 U/L (4-34); AST 31 U/L (14-36); African American GFR (CKD) 54 (>60 ml/min/1.73 sqM); Albumin 3.9 g/dL (3.5-5.0); Alkaline Phosphatase 47 U/L (38-126); Anion Gap 13 mmol/L; Blood Urea Nitrogen 18 mg/dL (7-17); Calcium 8.7 mg/dL (8.4-10.2); Carbon Dioxide 26 mmol/L (22-30); Chloride 101 mmol/L (98-107); Glucose 159 mg/dL (74-99); Magnesium 1.5 mg/dL (1.6-2.3); Non-African American GFR(CKD) 47 (>60 ml/min/1.73 sqM); Potassium 3.4 mmol/L (3.5-5.1); Sodium 140 mmol/L (137-145); Total Bilirubin 4.5 mg/dL (0.2-1.3); Total Protein 6.6 g/dL (6.3-8.2)
[2024-07-21 14:28] LABS: INR 1.3 (<1.2)
[2024-07-21 14:29] LABS: Partial Thromboplastin Time 23.6 sec (22.0-30.0)
--- NOTE | 2024-07-21 14:33 | ED ---
Syncope HPI - General Chief Complaint: Syncope Stated Complaint: Syncope Time Seen by Provider: 07/21/24 13:25 Source: patient, EMS, RN notes reviewed Mode of arrival: EMS Limitations: altered mental status - History of Present Illness Initial Comments: This is an 79-year-old female who presents to the emergency department for a syncopal episode. Her daughter states that she was helping her mom with a shower this morning and when she went to wash her hair she noticed her eyes roll back in her head and she essentially went limp. She helped to lower her to the ground and called EMS. She was unresponsive for about 2 minutes. Patient is a poor historian and cannot provide much information as to how she felt before and/or how she feels now. Her daughter states that she does have a history of stroke and she also has an AICD and pacemaker. MD Complaint: loss of consciousness - Related Data Home Medications Medication Instructions Recorded Confirmed Metoprolol Succinate (ER) [Toprol 50 mg PO HS 03/02/22 07/21/24 Xl] Rivaroxaban [Xarelto] 15 mg PO HS 03/02/22 07/21/24 Atorvastatin [Lipitor] 20 mg PO HS 07/21/24 07/21/24 Baclofen [Lioresal] 10 mg PO HS 07/21/24 07/21/24 Donepezil [Aricept] 10 mg PO HS 07/21/24 07/21/24 Ergocalciferol (Vitamin D2) 1,250 mcg PO SALDIVAR 07/21/24 07/21/24 [Drisdol (50,000 Iu)] Ibandronate Sodium [Boniva] 150 mg PO Q30D 07/21/24 07/21/24 Valsartan [Diovan] 80 mg PO HS 07/21/24 07/21/24 Allergies Allergy/AdvReac Type Severity Reaction Status Date / Time No Known Allergies Allergy Verified 07/21/24 16:33 Review of Systems ROS Statement: Those systems with pertinent positive or pertinent negative responses have been documented in the HPI. ROS Other: All systems not noted in ROS Statement are negative. Past Medical History Past Medical History: Hyperlipidemia, Hypertension, Osteoarthritis (OA), Pneumonia, Vascular Disorder Additional Past Medical History / Comment(s): See Dr. Andino H&P. "Weak heart." Hx Pneumonia many yrs ago. chronic back pain, stent in bilat leg, dementia, pacemaker History of Any Multi-Drug Resistant Organisms: None Reported Past Surgical History: AICD, Bowel Resection, Heart Catheterization, Orthopedic Surgery, Tonsillectomy Additional Past Surgical History / Comment(s): ARTHROSCOPY BILATERAL KNEES, LEFT ILIAC PTBA/STENT, 05-08-15 STENT TO RIGHTT ILIAC, colonoscopy. Past Anesthesia/Blood Transfusion Reactions: No Reported Reaction Additional Past Anesthesia/Blood Transfusion Reaction / Comment(s): With one prior surgery had difficulty waking up. Type of Cardiac Device: Permanent Pacemaker, AICD Device Placement Date:: 2008 and generator change 01/2016 Past Psychological History: No Psychological Hx Reported Smoking Status: Former smoker Past Alcohol Use History: None Reported Past Drug Use History: None Reported - Past Family History Sister(s) Family Medical History: Cancer Additional Family Medical History / Comment(s): Brain Cancer. Father Family Medical History: Myocardial Infarction ([place]) General Exam Limitations: altered mental status General appearance: alert, in no apparent distress Head exam: Present: atraumatic, normocephalic, normal inspection Respiratory exam: Present: normal lung sounds bilaterally. Absent: respiratory distress, wheezes, rales, rhonchi, stridor Cardiovascular Exam: Present: regular rate, normal rhythm, normal heart sounds. Absent: systolic murmur, diastolic murmur, rubs, gallop, clicks GI/Abdominal exam: Present: soft, normal bowel sounds. Absent: distended, tenderness, guarding, rebound, rigid Neurological exam: Present: alert, oriented X3, CN II-XII intact Psychiatric exam: Present: normal affect, normal mood Skin exam: Present: warm, dry, intact, normal color. Absent: rash Course Vital Signs 07/21/24 07/21/24 07/21/24 12:48 13:03 13:12 Temperature 97.7 F Pulse Rate 74 70 Pulse Rate [ 72 Band Leader ] Respiratory 17 18 Rate Blood Pressure 110/93 120/92 O2 Sat by Pulse 100 100 Oximetry 07/21/24 07/21/24 07/21/24 14:13 16:40 17:00 Temperature Pulse Rate 76 63 73 Pulse Rate [ Band Leader ] Respiratory 18 15 18 Rate Blood Pressure 90/67 107/62 107/62 O2 Sat by Pulse 97 91 L 98 Oximetry 07/21/24 07/21/24 18:00 21:46 Temperature Pulse Rate 61 70 Pulse Rate [ Band Leader ] Respiratory 16 17 Rate Blood Pressure 110/89 116/67 O2 Sat by Pulse 100 Oximetry Medical Decision Making - Medical Decision Making This is an 79 year old female who presents to the emergency department for a syncopal episode. Was pt. sent in by a medical professional or institution? @ -No Did you speak to anyone other than the patient for history? @ -Her daughter provided most of the history. Did you review nursing and triage notes? @ -Yes, and I agree, it is accurate with regards to the patient's symptoms. Were old charts reviewed? @ -No Differential Diagnosis? @ -Differential Syncope: Valvular disease, hypertrophic cardiomyopathy, pulmonary embolism, tamponade, tachycardia, bradycardia, [place], hypovolemia, hemorrhage, dissection, anemia, intracranial hemorrhage, seizure, hypoglycemia, carbon monoxide poisoning, this is not meant to be an all-inclusive list. EKG interpreted by me (3pts min.)? @ -EKG interpreted by me demonstrating the following: Sinus rhythm. Ventricular rate 69 bpm, ID interval 149 ms, QRS duration 86 ms, QTc 410 ms. X-rays interpreted by me (1pt min.)? @ -Chest x-ray obtained, my interpretation identifies no localized consolidations or infiltrates. CT interpreted by me (1pt min.)? @ -Not obtained U/S interpreted by me (1pt. min.)? @ -Not obtained What testing was considered but not performed? (CT, X-rays, U/S, labs)? Why? @ -None What meds were considered but not given? Why? @ -None Did you discuss the management of the patient with other professionals? @ -Yes, Dr. Hartman, who accepts the patient for admission. Did you reconcile home meds? @ -Yes Was smoking cessation discussed for >3mins.? @ -No Was critical care preformed (if so, how long)? @ -No Were there social determinants of health that impacted care today? How? (Homelessness, low income, unemployed, alcoholism, drug addiction, transportation, low edu. Level, literacy, decrease access to med. care, correction, rehab)? @ -No Was there de-escalation of care discussed even if they declined? (Discuss DNR or withdrawal of care, Hospice)? @ -No What co-morbidities impacted this encounter? (DM, HTN, Smoking, COPD, CAD, Cancer, CVA, Hep., AIDS, mental health diagnosis, sleep apnea, morbid obesity)? @ -HLD, HTN Was patient admitted / discharged? @ -Admitted. Lab work demonstrates leukocytosis. She also has mild hypokalemia and mild hypomagnesemia. Troponin elevated at 0.053. Patient unable to provide information as to if she is having chest pain or shortness of breath. Of note, bilirubin is elevated. However, this is all unconjugated and her other LFTs are within normal limits. This is not consistent with any kind of obstruction and patient would not need any sort of GI intervention. It is also not the reason for her visit. This can continue to be monitored and followed up on an outpatient basis. Patient also not exhibiting any abdominal pain. Patient admitted to medicine for syncopal episode with elevated troponin. Will plan to interrogate her AICD and pacemaker. Serial troponins ordered and consult was placed for cardiology. 40 mEq of K-Dur and 400 mg of magnesium oxide administered. Case discussed with ED attending, Dr. Cobb. Undiagnosed new problem with uncertain prognosis? @ -None Drug Therapy requiring intensive monitoring for toxicity (Heparin, Nitro, Insulin, Cardizem)? @ -None Were any procedures done? @ -None Diagnosis/symptom? @ -Syncope, elevated troponin Acute, or Chronic, or Acute on Chronic? @ -Acute Uncomplicated (without systemic symptoms) or Complicated (systemic symptoms)? @ -Uncomplicated Side effects of treatment? @ -None Exacerbation, Progression, or Severe Exacerbation] @ -Not applicable Poses a threat to life or bodily function? @ -Yes, if related to ACS or an arrhythmia, it can be life threatening - Lab Data Result diagrams: 07/21/24 14:04 07/21/24 14:04 Lab Results 07/21/24 07/21/24 07/21/24 Range/Units 14:04 14:04 14:11 WBC 16.1 H (3.8-10.6) k/uL RBC 4.50 (3.80-5.40) m/uL Hgb 13.9 (11.4-16.0) gm/dL Hct 44.3 (34.0-46.0) % MCV 98.5 (80.0-100.0) fL MCH 30.9 (25.0-35.0) pg MCHC 31.3 (31.0-37.0) g/dL RDW 14.8 (11.5-15.5) % Plt Count 234 (150-450) k/uL MPV 7.4 Neutrophils % 85 % Lymphocytes % 6 % Monocytes % 8 % Eosinophils % 0 % Basophils % 0 % Neutrophils # 13.7 H (1.3-7.7) k/uL Lymphocytes # 0.9 L (1.0-4.8) k/uL Monocytes # 1.3 H (0-1.0) k/uL Eosinophils # 0.1 (0-0.7) k/uL Basophils # 0.0 (0-0.2) k/uL Hypochromasia Slight PT 14.0 H (10.0-12.5) sec INR 1.3 H (<1.2) APTT 23.6 (22.0-30.0) sec Sodium 140 (137-145) mmol/L Potassium 3.4 L (3.5-5.1) mmol/L Chloride 101 (98-107) mmol/L Carbon Dioxide 26 (22-30) mmol/L Anion Gap 13 mmol/L BUN 18 H (7-17) mg/dL Creatinine 1.11 H (0.52-1.04) mg/dL Est GFR (CKD-EPI)AfAm 54 (>60 ml/min/1.73 sqM) Est GFR (CKD-EPI)NonAf 47 (>60 ml/min/1.73 sqM) Glucose 159 H (74-99) mg/dL Calcium 8.7 (8.4-10.2) mg/dL Magnesium 1.5 L (1.6-2.3) mg/dL Total Bilirubin 4.5 H (0.2-1.3) mg/dL Conjugated Bilirubin 0.0 (0.0-0.3) mg/dL Unconjugated Bilirubin 3.9 H (0.0-1.1) mg/dL Delta Bilirubin 0.6 H (0.0-0.2) mg/dL AST 31 (14-36) U/L ALT 16 (4-34) U/L Alkaline Phosphatase 47 (38-126) U/L Troponin I (0.000-0.034) ng/mL Total Protein 6.6 (6.3-8.2) g/dL Albumin 3.9 (3.5-5.0) g/dL 07/21/24 Range/Units 14:11 WBC (3.8-10.6) k/uL RBC (3.80-5.40) m/uL Hgb (11.4-16.0) gm/dL Hct (34.0-46.0) % MCV (80.0-100.0) fL MCH (25.0-35.0) pg MCHC (31.0-37.0) g/dL RDW (11.5-15.5) % Plt Count (150-450) k/uL MPV Neutrophils % % Lymphocytes % % Monocytes % % Eosinophils % % Basophils % % Neutrophils # (1.3-7.7) k/uL Lymphocytes # (1.0-4.8) k/uL Monocytes # (0-1.0) k/uL Eosinophils # (0-0.7) k/uL Basophils # (0-0.2) k/uL Hypochromasia PT (10.0-12.5) sec INR (<1.2) APTT (22.0-30.0) sec Sodium (137-145) mmol/L Potassium (3.5-5.1) mmol/L Chloride (98-107) mmol/L Carbon Dioxide (22-30) mmol/L Anion Gap mmol/L BUN (7-17) mg/dL Creatinine (0.52-1.04) mg/dL Est GFR (CKD-EPI)AfAm (>60 ml/min/1.73 sqM) Est GFR (CKD-EPI)NonAf (>60 ml/min/1.73 sqM) Glucose (74-99) mg/dL Calcium (8.4-10.2) mg/dL Magnesium (1.6-2.3) mg/dL Total Bilirubin (0.2-1.3) mg/dL Conjugated Bilirubin (0.0-0.3) mg/dL Unconjugated Bilirubin (0.0-1.1) mg/dL Delta Bilirubin (0.0-0.2) mg/dL AST (14-36) U/L ALT (4-34) U/L Alkaline Phosphatase (38-126) U/L Troponin I 0.053 H* (0.000-0.034) ng/mL Total Protein (6.3-8.2) g/dL Albumin (3.5-5.0) g/dL - Radiology Data Radiology results: report reviewed, image reviewed Disposition Clinical Impression: Syncope, Elevated troponin level Disposition: ADMITTED IP TO THIS HOSP
[2024-07-21 15:21] LABS: Bilirubin, Delta 0.6 mg/dL (0.0-0.2); Bilirubin,Unconjugated 3.9 mg/dL (0.0-1.1)
--- NOTE | 2024-07-21 15:30 | CT ---
EXAMINATION TYPE: CT brain wo con CT DLP: 1167.4 mGycm, Automated exposure control for dose reduction was used. DATE OF EXAM: 07/21/2024 2:54 PM COMPARISON: 10/16/2022. CLINICAL INDICATION: Female, 79 years old with history of syncope, Syncope, weakness TECHNIQUE: Brain: Axial CT images of the brain were obtained with coronal and sagittal reformats created and rev iewed. Contrast used: None. Oral contrast used: None. FINDINGS: Brain: Extra-axial spaces: No abnormal extra-axial fluid collections. Ventricular system: Dilatation in proportion to cerebral atrophy. Cerebral parenchyma: Cerebral atrophy. No acute intraparenchymal hemorrhage or mass effect. The matias -white junction is well differentiated. Scattered hypoattenuating areas are seen within the white mat ter. Cerebellum: Unremarkable. Mass effect: No evidence of midline shift. Intracranial vasculature: Atherosclerotic calcifications of the intracranial vessels. Soft tissues: Normal. Calvarium/osseous structures: No depressed skull fracture. Paranasal sinuses and mastoid air cells: Mild scattered paranasal sinus disease. Visualized orbits: Bilateral aphakia IMPRESSION: No acute intracranial process. [facility], , 07/21/2024 3:27 PM
--- NOTE | 2024-07-21 15:31 | XR ---
EXAMINATION TYPE: XR chest 2V DATE OF EXAM: 07/21/2024 3:07 PM CLINICAL INDICATION: Female, 79 years old with history of syncope; COMPARISON: Chest radiographs from 10/16/2022 TECHNIQUE: XR chest 2V Frontal view of the chest. FINDINGS: Lungs/Pleura: There is no evidence of pleural effusion, focal consolidation, or pneumothorax. Pulmonary vascularity: Unremarkable. Heart/mediastinum: Cardiomediastinal silhouette is unremarkable. Single-lead cardiac conduction devic e overlying the left hemithorax with lead projecting over the right ventricle. Musculoskeletal: No acute osseous pathology. Other findings: None IMPRESSION: 1. No acute cardiopulmonary disease process. 2. COPD changes. [facility], , 07/21/2024 3:28 PM
[2024-07-21] MEDS ORDERED: ONDANSETRON 4 MG/2 ML VIAL IVP PRN (16:03)
[2024-07-21] MEDS ORDERED: MORPHINE SULFATE 4 MG/ML SYRINGE IV PRN (16:03)
[2024-07-21] MEDS ORDERED: HYDROcodone/APAP 5-325MG 1 EACH TAB PO PRN (16:03)
[2024-07-21] MEDS ORDERED: ACETAMINOPHEN TAB 325 MG TAB PO PRN (16:03)
[2024-07-21] MEDS ORDERED: NALOXONE 0.4 MG/ML 1 ML VIAL IV PRN (16:03)
[2024-07-21 16:37] LABS: Appearance,Urine Cloudy (Clear); Bacteria,Urine Rare /hpf; Bilirubin,Urine 1+ (Negative); Blood,Urine Moderate (Negative); Color,Urine Yellow; Glucose,Urine (UA) Trace (Negative); Hyaline Casts,Urine 6 /lpf (0-2); Ketones,Urine Negative (Negative); Leukocyte Esterase,Urine Negative (Negative); Mucus,Urine Rare /hpf; Nitrite,Urine Negative (Negative); PH, Urine 5.5 (5.0-8.0); Protein,Urine 1+ (Negative); RBC,Urine 20 /hpf (0-5); Specific Gravity,Urine 1.022 (1.001-1.035); Squamous Epithelial Cell,Urine 3 /hpf (0-4); WBC,Urine 1 /hpf (0-5)
[2024-07-21] MEDS: POTASSIUM CHLORIDE ER 20 MEQ TAB.ER PO STA (17:03)
[2024-07-21] MEDS: MAGNESIUM OXIDE 400 MG TAB PO STA (17:03)
[2024-07-21] MEDS: SODIUM CHLORIDE 0.9% 1,000 ML IV SCH (17:10)
[2024-07-21] MEDS ORDERED: NON FORMULARY DRUG (Ibandronate Sodium [Boniva] 150 MG Tablet) PO SCH (18:00)
--- NOTE | 2024-07-21 19:20 | P.HPIM ---
History of Present Illness H&P Date: 07/21/24 Chief Complaint: Acute syncope 79-year-old female who presents to the emergency department for a syncopal episode. Her daughter states that she was helping her mom with a shower this morning and when she went to wash her hair she noticed her eyes roll back in her head and she essentially went limp. She helped to lower her to the ground and called EMS. She was unresponsive for about 2 minutes. Patient is a poor historian and cannot provide much information as to how she felt before and/or how she feels now. Her daughter states that she does have a history of stroke and she also has an AICD and pacemaker. Blood work reveals WBC of 16.1, hemoglobin of 13.9 and platelet count of 239, sodium 145 potassium 3.4, BUNs/creatinine of 18/1.1, blood glucose of 159, INR 1 point CAD, total bilirubin elevated at 4.5, magnesium low at 1.5, unconjugated bilirubin of 3.9, troponin elevated at 0.053 -EKG Sinus rhythm. Ventricular rate 69 bpm, DE interval 149 ms, QRS duration 86 ms, QTc 410 ms. -Chest x-ray obtained, no localized consolidations or infiltrates. Review of Systems REVIEW OF SYSTEMS: CONSTITUTIONAL: No fever, no malaise, no fatigue. HEENT: No recent visual problems or hearing problems. Denied any sore throat. CARDIOVASCULAR: No chest pain, orthopnea, PND, no palpitations, no syncope. PULMONARY: No shortness of breath, no cough, no hemoptysis. GASTROINTESTINAL: No diarrhea, no nausea, no vomiting, no abdominal pain. NEUROLOGICAL: No headaches, no weakness, no numbness. HEMATOLOGICAL: Denies any bleeding or petechiae. GENITOURINARY: Denies any burning micturition, frequency, or urgency. MUSCULOSKELETAL/RHEUMATOLOGICAL: Denies any joint pain, swelling, or any muscle pain. ENDOCRINE: Denies any polyuria or polydipsia. The rest of the 14-point review of systems is negative. Past Medical History Past Medical History: Hyperlipidemia, Hypertension, Osteoarthritis (OA), Pneumonia, Vascular Disorder Additional Past Medical History / Comment(s): See Dr. Andino H&P. "Weak heart." Hx Pneumonia many yrs ago. chronic back pain, stent in bilat leg, dementia, pacemaker History of Any Multi-Drug Resistant Organisms: None Reported Past Surgical History: AICD, Bowel Resection, Heart Catheterization, Orthopedic Surgery, Tonsillectomy Additional Past Surgical History / Comment(s): ARTHROSCOPY BILATERAL KNEES, LEFT ILIAC PTBA/STENT, 05-08-15 STENT TO RIGHTT ILIAC, colonoscopy. Past Anesthesia/Blood Transfusion Reactions: No Reported Reaction Additional Past Anesthesia/Blood Transfusion Reaction / Comment(s): With one prior surgery had difficulty waking up. Type of Cardiac Device: Permanent Pacemaker, AICD Device Placement Date:: 2008 and generator change 01/2016 Past Psychological History: No Psychological Hx Reported Smoking Status: Former smoker Past Alcohol Use History: None Reported Past Drug Use History: None Reported - Past Family History Sister(s) Family Medical History: Cancer Additional Family Medical History / Comment(s): Brain Cancer. Father Family Medical History: Myocardial Infarction ([place]) Medications and Allergies Home Medications Medication Instructions Recorded Confirmed Type Metoprolol Succinate (ER) [Toprol 50 mg PO HS 03/02/22 07/21/24 History Xl] Rivaroxaban [Xarelto] 15 mg PO HS 03/02/22 07/21/24 History Atorvastatin [Lipitor] 20 mg PO HS 07/21/24 07/21/24 History Baclofen [Lioresal] 10 mg PO HS 07/21/24 07/21/24 History Donepezil [Aricept] 10 mg PO HS 07/21/24 07/21/24 History Ergocalciferol (Vitamin D2) 1,250 mcg PO SALDIVAR 07/21/24 07/21/24 History [Drisdol (50,000 Iu)] Ibandronate Sodium [Boniva] 150 mg PO Q30D 07/21/24 07/21/24 History Valsartan [Diovan] 80 mg PO HS 07/21/24 07/21/24 History Allergies Allergy/AdvReac Type Severity Reaction Status Date / Time No Known Allergies Allergy Verified 07/21/24 16:33 Physical Exam Vitals: Vital Signs Temp Pulse Pulse Resp BP Pulse Ox 07/21/24 18:00 61 16 110/89 100 07/21/24 17:00 73 18 107/62 98 07/21/24 16:40 63 15 107/62 91 L 07/21/24 14:13 76 18 90/67 97 07/21/24 13:12 72 07/21/24 13:03 70 18 120/92 100 07/21/24 12:48 97.7 F 74 17 110/93 100 Intake and Output 07/21/24 07/21/24 07/21/24 06:59 14:59 22:59 Other: Weight 47.627 kg General appearance: alert, in no apparent distress Head exam: Present: atraumatic, normocephalic, normal inspection Respiratory exam: Present: normal lung sounds bilaterally. Absent: respiratory distress, wheezes, rales, rhonchi, stridor Cardiovascular Exam: Present: regular rate, normal rhythm, normal heart sounds. Absent: systolic murmur, diastolic murmur, rubs, gallop, clicks GI/Abdominal exam: Present: soft, normal bowel sounds. Absent: distended, te nderness, guarding, rebound, rigid Neurological exam: Present: alert, oriented X3, CN II-XII intact Psychiatric exam: Present: normal affect, normal mood Skin exam: Present: warm, dry, intact, normal color. Absent: rash Results CBC & Chem 7: 07/21/24 14:04 07/21/24 14:04 Labs: Abnormal Lab Results - Last 24 Hours (Table) 07/21/24 07/21/24 07/21/24 Range/Units 14:04 14:04 14:11 WBC 16.1 H (3.8-10.6) k/uL Neutrophils # 13.7 H (1.3-7.7) k/uL Lymphocytes # 0.9 L (1.0-4.8) k/uL Monocytes # 1.3 H (0-1.0) k/uL PT 14.0 H (10.0-12.5) sec INR 1.3 H (<1.2) Potassium 3.4 L (3.5-5.1) mmol/L BUN 18 H (7-17) mg/dL Creatinine 1.11 H (0.52-1.04) mg/dL Glucose 159 H (74-99) mg/dL Magnesium 1.5 L (1.6-2.3) mg/dL Total Bilirubin 4.5 H (0.2-1.3) mg/dL Unconjugated Bilirubin 3.9 H (0.0-1.1) mg/dL Delta Bilirubin 0.6 H (0.0-0.2) mg/dL Troponin I (0.000-0.034) ng/mL Urine Appearance (Clear) Urine Protein (Negative) Urine Glucose (UA) (Negative) Urine Blood (Negative) Urine Bilirubin (Negative) Urine RBC (0-5) /hpf Urine Bacteria (None) /hpf Hyaline Casts (0-2) /lpf Urine Mucus (None) /hpf 07/21/24 07/21/24 07/21/24 Range/Units 14:11 16:00 18:10 WBC (3.8-10.6) k/uL Neutrophils # (1.3-7.7) k/uL Lymphocytes # (1.0-4.8) k/uL Monocytes # (0-1.0) k/uL PT (10.0-12.5) sec INR (<1.2) Potassium (3.5-5.1) mmol/L BUN (7-17) mg/dL Creatinine (0.52-1.04) mg/dL Glucose (74-99) mg/dL Magnesium (1.6-2.3) mg/dL Total Bilirubin (0.2-1.3) mg/dL Unconjugated Bilirubin (0.0-1.1) mg/dL Delta Bilirubin (0.0-0.2) mg/dL Troponin I 0.053 H* 0.055 H* (0.000-0.034) ng/mL Urine Appearance Cloudy H (Clear) Urine Protein 1+ H (Negative) Urine Glucose (UA) Trace H (Negative) Urine Blood Moderate H (Negative) Urine Bilirubin 1+ H (Negative) Urine RBC 20 H (0-5) /hpf Urine Bacteria Rare H (None) /hpf Hyaline Casts 6 H (0-2) /lpf Urine Mucus Rare H (None) /hpf Assessment and Plan Assessment: 1. Chest pain/elevated troponin; rule out acute coronary syndrome -Patient will be admitted to telemetry; monitor cardiac enzymes and EKG -Consult cardiology 2. Acute syncope; likely related to acute cardiac event -Will remain on telemetry with plans to cycle troponin and monitor EKG; orthostatic vital signs -CT of the brain is negative for any acute process -Will order 2D echo -Bilateral carotid Doppler 3. Acute renal injury; start patient on IV fluids in form of normal saline at a rate of 75 cc an hour; monitor strict ADALBERTO's, daily weights, renal function electrolytes; avoid nephrotoxins and hypotension 4. Hyperbilirubinemia; transaminases within normal limits; total bilirubin is elevated at 4.5 with unconjugated bilirubin of 3.9 -We will monitor liver enzymes; obtain hepatic ultrasound -Order hepatitis profile 5. Hypertension; metoprolol 50 mg daily; valsartan 80 mg nightly 6. Hyperlipidemia; Lipitor 20 mg p.o. nightly DVT prophylaxis; SCDs/Xarelto CODE STATUS; full code
[2024-07-21] MEDS: METOPROLOL SUCCINATE (ER) 50 MG TAB.ER.24H PO SCH (21:07)
[2024-07-21] MEDS: ATORVASTATIN 20 MG TAB PO SCH (21:07)
[2024-07-21] MEDS: DONEPEZIL 10 MG TAB PO SCH (21:07)
[2024-07-21] MEDS: BACLOFEN 10 MG TAB PO SCH (21:07)
[2024-07-21] MEDS: RIVAROXABAN 15 MG TAB PO SCH (21:07)
[2024-07-21] MEDS: VALSARTAN 80 MG TAB PO SCH (21:08)
[2024-07-21] MEDS ORDERED: ZINC OXIDE PASTE (Z-GUARD) 1 APPLIC TOPICAL PRN (23:16)
[2024-07-22 08:39] LABS: Basophils % (A) 0 %; Eosinophils # (A) 0.1 k/uL (0-0.7); Eosinophils % (A) 1 %; HCT 36.8 % (34.0-46.0); HGB 11.9 gm/dL (11.4-16.0); Lymphocytes # (A) 1.3 k/uL (1.0-4.8); Lymphocytes % (A) 12 %; MCH 31.7 pg (25.0-35.0); MCHC 32.2 g/dL (31.0-37.0); MCV 98.3 fL (80.0-100.0); Mean Platelet Volume 8.1; Monocytes # (A) 1.1 k/uL (0-1.0); Monocytes % (A) 11 %; Neutrophils # (A) 7.8 k/uL (1.3-7.7); Neutrophils % (A) 75 %; Platelet Count 173 k/uL (150-450); RBC 3.75 m/uL (3.80-5.40); RDW 15.2 % (11.5-15.5); WBC 10.4 k/uL (3.8-10.6)
[2024-07-22 08:49] LABS: ALT 16 U/L (4-34); AST 30 U/L (14-36); African American GFR (CKD) 69 (>60 ml/min/1.73 sqM); Alkaline Phosphatase 61 U/L (38-126); Anion Gap 4 mmol/L; Bilirubin, Delta 0.5 mg/dL (0.0-0.2); Bilirubin,Unconjugated 2.8 mg/dL (0.0-1.1); Blood Urea Nitrogen 20 mg/dL (7-17); Calcium 8.1 mg/dL (8.4-10.2); Carbon Dioxide 30 mmol/L (22-30); Chloride 106 mmol/L (98-107); Glucose 116 mg/dL (74-99); Non-African American GFR(CKD) 60 (>60 ml/min/1.73 sqM); Potassium 3.5 mmol/L (3.5-5.1); Sodium 140 mmol/L (137-145); Total Bilirubin 3.3 mg/dL (0.2-1.3); Total Protein 5.5 g/dL (6.3-8.2)
[2024-07-22] MEDS: ERGOCALCIFEROL 1,250 MCG (50,000 IU) CAPSULE PO SCH (09:15)
[2024-07-22] MEDS: PANTOPRAZOLE 40 MG/10 ML VIAL IV SCH (09:15)
--- NOTE | 2024-07-22 11:35 | P.CRDCN ---
History of Present Illness History of present illness: HISTORY OF PRESENT ILLNESS: This is a 79-year-old female with a past medical history significant for coronary artery disease, atrial fibrillation, hypertension, hyperlipidemia, and Alzheimer's dementia. Patient follows in the office with Dr. Goodman. We have been asked to see the patient in consultation for syncope. Patient examined at the bedside. Patient's daughter is present. Patient's daughter providing majority of the HPI. She states the patient has been bedbound for approximately 2 months due to worsening weakness and inability to walk. She states yesterday she got her mom up and put her in the shower. She states that she was washing her hair when she noticed that she slumped over forward and went limp. She states that her eyes were still open but she was not responding to her. She states that she immediately got her mom out of the shower and laid her on the bathroom floor. She states that she was on the phone with 911 her mother began to come around and was responsive to her. The patient denies having any chest pain or pressure. She denies having any shortness of breath. Patient's blood pressure this morning is stable at 135/80. The patient's daughter does report her blood pressure was low when EMS arrived. Patient's ICD was interrogated with no acute events noted. DIAGNOSTICS: - EKG reveals sinus mechanism with no signs of acute ischemia - Chest xray negative for acute process. COPD changes. - Laboratory data: WBC on admission 16.1. Repeat 10.4. Hemoglobin 11.9. Platelet count 173. Sodium 140. Potassium 3.5. BUN 20. Creatinine 0.91. Magnesium 1.6. Troponin 0.053. 0.055. 0.053. - Current home cardiac medications include valsartan 80 mg at night, Lipitor 20 mg at night, Xarelto 15 mg at night, metoprolol succinate 50 mg at night - Most recent echocardiogram obtained in April 2023 revealed ejection fraction 42%, moderate MR, mild TR - Cardiac catheterization history: April 2009 revealing 30% mid LAD and 100% distal PLB REVIEW OF SYSTEMS: At the time of my exam: CONSTITUTIONAL: Denies fever or chills. HEENT: Denies blurred vision, vision changes, or eye pain. Denies hemoptysis CARDIOVASCULAR: Denies chest pain. Denies orthopnea. Denies PND. Denies palpitations RESPIRATORY: Denies shortness of breath. GASTROINTESTINAL: Denies abdominal pain. Denies nausea or vomiting. HEMATOLOGIC: Denies bleeding disorders. GENITOURINARY: Denies any blood in urine. SKIN: Denies pruitis. Denies rash. PHYSICAL EXAM: VITAL SIGNS: Reviewed. GENERAL: Well-developed in no acute distress. HEENT: Head is normocephalic. Pupils are equal, round. Sclerae anicteric. Mucous membranes of the mouth are moist. Neck supple. No JVD or thyromegaly LUNGS: Respirations even and unlabored. Lungs essentially clear to auscultation bilaterally. HEART: Regular rate and rhythm. S1 and S2 heard. + systolic murmur. ABDOMEN: Soft. Nondistended. Nontender. EXTREMITIES: Normal range of motion. No clubbing or cyanosis. Peripheral pulses intact. No lower extremity edema NEUROLOGIC: Awake and alert. Oriented x 3. ASSESSMENT: Syncope, likely related to orthostatic hypotension, ICD interrogation unremarkable Abnormal troponins, flat, no evidence of myocardial injury or ischemia Abnormal UA, possible urinary tract infection Coronary artery disease; 30% mid LAD and 100% distal PLB per cath in 2008 Nonischemic cardiomyopathy with previous ICD implantation Paroxysmal atrial fibrillation Hypertension Hyperlipidemia History of Alzheimer's dementia History of UTI PLAN: Obtain 2D echo to assess cardiac structure and function Resume home cardiac medications Continue telemetry monitoring Continue to monitor blood pressure Further recommendations pending patient course Nurse practitioner note has been reviewed by physician. Signing provider agrees with the documented findings, assessment, and plan of care documented by REGISTERED PUBLIC HEALTH NURSE as a scribe. Past Medical History Past Medical History: Hyperlipidemia, Hypertension, Osteoarthritis (OA), Pneumonia, Vascular Disorder Additional Past Medical History / Comment(s): See Dr. Andino H&P. "Weak heart." Hx Pneumonia many yrs ago. chronic back pain, stent in bilat leg, dementia, pacemaker, alzheimers History of Any Multi-Drug Resistant Organisms: None Reported Past Surgical History: AICD, Bowel Resection, Heart Catheterization, Orthopedic Surgery, Tonsillectomy Additional Past Surgical History / Comment(s): ARTHROSCOPY BILATERAL KNEES, LEFT ILIAC PTBA/STENT, 15 STENT TO RIGHTT ILIAC, colonoscopy. Past Anesthesia/Blood Transfusion Reactions: No Reported Reaction Additional Past Anesthesia/Blood Transfusion Reaction / Comment(s): With one prior surgery had difficulty waking up. Type of Cardiac Device: Permanent Pacemaker, AICD Device Placement Date:: 2008 and generator change 01/2016 Past Psychological History: No Psychological Hx Reported Smoking Status: Former smoker Past Alcohol Use History: None Reported Additional Past Alcohol Use History / Comment(s): Has been an on and off smoker for 30 +yrs, 1/2 PPD. Past Drug Use History: None Reported - Past Family History Sister(s) Family Medical History: Cancer Additional Family Medical History / Comment(s): Brain Cancer. Father Family Medical History: Myocardial Infarction ([place]) Medications and Allergies Home Medications Medication Instructions Recorded Confirmed Type Metoprolol Succinate (ER) [Toprol 50 mg PO HS 03/02/22 07/21/24 History Xl] Rivaroxaban [Xarelto] 15 mg PO HS 03/02/22 07/21/24 History Atorvastatin [Lipitor] 20 mg PO HS 07/21/24 07/21/24 History Baclofen [Lioresal] 10 mg PO HS 07/21/24 07/21/24 History Donepezil [Aricept] 10 mg PO HS 07/21/24 07/21/24 History Ergocalciferol (Vitamin D2) 1,250 mcg PO SALDIVAR 07/21/24 07/21/24 History [Drisdol (50,000 Iu)] Ibandronate Sodium [Boniva] 150 mg PO Q30D 07/21/24 07/21/24 History Valsartan [Diovan] 80 mg PO HS 07/21/24 07/21/24 History Allergies Allergy/AdvReac Type Severity Reaction Status Date / Time No Known Allergies Allergy Verified 07/21/24 16:33 Physical Exam Vitals: Vital Signs Temp Pulse Pulse Resp BP BP Pulse Ox 07/22/24 08:30 66 16 07/22/24 08:29 97.7 F 66 16 135/80 99 07/22/24 04:00 98 F 67 16 110/69 93 L 07/21/24 23:07 98.3 F 65 16 108/69 96 07/21/24 21:46 70 17 116/67 07/21/24 18:00 61 16 110/89 100 07/21/24 17:00 73 18 107/62 98 07/21/24 16:40 63 15 107/62 91 L 07/21/24 14:13 76 18 90/67 97 07/21/24 13:12 72 07/21/24 13:03 70 18 120/92 100 07/21/24 12:48 97.7 F 74 17 110/93 100 Intake and Output 07/21/24 07/22/24 07/22/24 22:59 06:59 14:59 Intake Total 10 Balance 10 Intake: IV 10 Invasive Line 1 10 Other: Voiding Method External Catheter External Catheter Weight 47.627 kg Results 07/22/24 07:43 07/22/24 07:43 Cardiac Enzymes 07/21/24 07/21/24 07/21/24 Range/Units 14:04 14:11 18:10 AST 31 (14-36) U/L Troponin I 0.053 H* 0.055 H* (0.000-0.034) ng/mL 07/21/24 07/22/24 Range/Units 21:31 07:43 AST 30 (14-36) U/L Troponin I 0.053 H* (0.000-0.034) ng/mL Coagulation 07/21/24 Range/Units 14:11 PT 14.0 H (10.0-12.5) sec APTT 23.6 (22.0-30.0) sec CBC 07/21/24 07/22/24 Range/Units 14:04 07:43 WBC 16.1 H 10.4 (3.8-10.6) k/uL RBC 4.50 3.75 L (3.80-5.40) m/uL Hgb 13.9 11.9 (11.4-16.0) gm/dL Hct 44.3 36.8 (34.0-46.0) % Plt Count 234 173 (150-450) k/uL Comprehensive Metabolic Panel 07/21/24 07/22/24 Range/Units 14:04 07:43 Sodium 140 140 (137-145) mmol/L Potassium 3.4 L 3.5 (3.5-5.1) mmol/L Chloride 101 106 (98-107) mmol/L Carbon Dioxide 26 30 (22-30) mmol/L BUN 18 H 20 H (7-17) mg/dL Creatinine 1.11 H 0.91 (0.52-1.04) mg/dL Glucose 159 H 116 H (74-99) mg/dL Calcium 8.7 8.1 L (8.4-10.2) mg/dL Unconjugated Bilirubin 3.9 H 2.8 H (0.0-1.1) mg/dL AST 31 30 (14-36) U/L ALT 16 16 (4-34) U/L Alkaline Phosphatase 47 61 (38-126) U/L Total Protein 6.6 5.5 L (6.3-8.2) g/dL Albumin 3.9 3.0 L (3.5-5.0) g/dL Current Medications Generic Name Dose Route Start Last Admin Trade Name Freq PRN Reason Stop Dose Admin Acetaminophen 650 mg 07/21/24 16:03 Acetaminophen Tab 325 Mg Tab PO Q6HR PRN Mild Pain or Fever > 100.5 Hydrocodone Bitart/Acetaminophen 1 each 07/21/24 16:03 Hydrocodone/Apap 5-325mg 1 Each Tab PO Q4HR PRN Moderate Pain (Scale 4 to 6) Atorvastatin Calcium 20 mg 07/21/24 21:00 07/21/24 21:07 Atorvastatin 20 Mg Tab PO 20 mg HS BRIDGET Administration Baclofen 10 mg 07/21/24 21:00 07/21/24 21:07 Baclofen 10 Mg Tab PO 10 mg HS BRIDGET Administration Donepezil HCl 10 mg 07/21/24 21:00 07/21/24 21:07 Donepezil 10 Mg Tab PO 10 mg HS BRIDGET Administration Ergocalciferol 1,250 mcg 07/22/24 09:00 07/22/24 09:15 Ergocalciferol 1,250 Mcg (50,000 Iu) Capsule PO 1,250 mcg SALDIVAR BRIDGET Administration Sodium Chloride 1,000 mls @ 75 mls/hr 07/21/24 16:15 07/22/24 09:15 Saline 0.9% IV 75 mls/hr .[id number] BRIDGET Administration Metoprolol Succinate 50 mg 07/21/24 21:00 07/21/24 21:07 Metoprolol Succinate (Er) 50 Mg Tab.Er.24h PO 50 mg HS BRIDGET Administration Morphine Sulfate 4 mg 07/21/24 16:03 Morphine Sulfate 4 Mg/Ml Syringe IV Q4HR PRN Severe Pain (Scale 7 to 10) Naloxone HCl 0.2 mg 07/21/24 16:03 Naloxone 0.4 Mg/Ml 1 Ml Vial IV Q2M PRN Opioid Reversal Ondansetron HCl 4 mg 07/21/24 16:03 Ondansetron 4 Mg/2 Ml Vial IVP Q8HR PRN Nausea And Vomiting Pantoprazole Sodium 40 mg 07/22/24 09:00 07/22/24 09:15 Pantoprazole 40 Mg/10 Ml Vial IV 40 mg DAILY BRIDGET Administration Petrolatum 1 applic 07/21/24 23:16 Zinc Oxide Paste (Z-Guard) 1 Applic TOPICAL Q2HR PRN Wound Healing Protocol Rivaroxaban 15 mg 07/21/24 21:00 07/21/24 21:07 Rivaroxaban 15 Mg Tab PO 15 mg HS BRIDGET Administration Protocol Valsartan 80 mg 07/21/24 21:00 07/21/24 21:08 Valsartan 80 Mg Tab PO 80 mg HS BRIDGET Administration Intake and Output 07/21/24 07/22/24 07/22/24 22:59 06:59 14:59 Intake Total 10 Balance 10 Intake: IV 10 Invasive Line 1 10 Other: Voiding Method External Catheter External Catheter Weight 47.627 kg 07/22/24 07:43 07/22/24 07:43
--- NOTE | 2024-07-22 11:52 | P.PN ---
Subjective Progress Note Date: 07/22/24 79-year-old female who presents to the emergency department for a syncopal episode. Her daughter states that she was helping her mom with a shower this morning and when she went to wash her hair she noticed her eyes roll back in her head and she essentially went limp. She helped to lower her to the ground and called EMS. She was unresponsive for about 2 minutes. Patient is a poor historian and cannot provide much information as to how she felt before and/or how she feels now. Her daughter states that she does have a history of stroke and she also has an AICD and pacemaker. Blood work reveals WBC of 16.1, hemoglobin of 13.9 and platelet count of 239, sodium 145 potassium 3.4, BUNs/creatinine of 18/1.1, blood glucose of 159, INR 1 point CAD, total bilirubin elevated at 4.5, magnesium low at 1.5, unconjugated bilirubin of 3.9, troponin elevated at 0.053 -EKG Sinus rhythm. Ventricular rate 69 bpm, VA interval 149 ms, QRS duration 86 ms, QTc 410 ms. -Chest x-ray obtained, no localized consolidations or infiltrates. -Patient has been evaluated by cardiology and recommending to continue current cardiac home medications; 2D echo is ordered and pending -- Follow-up has been trended and remains flat -- Bilateral carotid Doppler is ordered and completed and results are pending at this time -- Repeat blood work WBC 10.4, hemoglobin of 11.9 and platelet count of 173, sodium 140, potassium 3.5, BUN of 20 creatinine normal at 0.91, magnesium currently stable at 1.6 total bilirubin starting to trend down but remains elevated at 3.3 down from 4.5 yesterday; we will plan to obtain hepatobiliary ultrasound and make further recommendations; will order hepatitis profile -- Plan was discussed with patient's daughter at bedside Objective - Vital Signs Vital signs: Vital Signs Temp 98 F 07/22/24 04:00 Pulse 67 07/22/24 04:00 Resp 16 07/22/24 04:00 BP 110/69 07/22/24 04:00 Pulse Ox 93 L 07/22/24 04:00 FiO2 Intake & Output 07/21/24 07/22/24 07/22/24 18:59 06:59 18:59 Weight 47.627 kg 47.627 kg Other: Voiding Method External Catheter - Exam General appearance: alert, in no apparent distress Head exam: Present: atraumatic, normocephalic, normal inspection Respiratory exam: Present: normal lung sounds bilaterally. Absent: respiratory distress, wheezes, rales, rhonchi, stridor Cardiovascular Exam: Present: regular rate, normal rhythm, normal heart sounds. Absent: systolic murmur, diastolic murmur, rubs, gallop, clicks GI/Abdominal exam: Present: soft, normal bowel sounds. Absent: distended, tenderness, guarding, rebound, rigid Neurological exam: Present: alert, oriented X3, CN II-XII intact Psychiatric exam: Present: normal affect, normal mood Skin exam: Present: warm, dry, intact, normal color. Absent: rash - Labs CBC & Chem 7: 07/22/24 07:43 07/22/24 07:43 Labs: Abnormal Lab Results - Last 24 Hours (Table) 07/21/24 07/21/24 07/21/24 Range/Units 14:04 14:04 14:11 WBC 16.1 H (3.8-10.6) k/uL Neutrophils # 13.7 H (1.3-7.7) k/uL Lymphocytes # 0.9 L (1.0-4.8) k/uL Monocytes # 1.3 H (0-1.0) k/uL PT 14.0 H (10.0-12.5) sec INR 1.3 H (<1.2) Potassium 3.4 L (3.5-5.1) mmol/L BUN 18 H (7-17) mg/dL Creatinine 1.11 H (0.52-1.04) mg/dL Glucose 159 H (74-99) mg/dL Magnesium 1.5 L (1.6-2.3) mg/dL Total Bilirubin 4.5 H (0.2-1.3) mg/dL Unconjugated Bilirubin 3.9 H (0.0-1.1) mg/dL Delta Bilirubin 0.6 H (0.0-0.2) mg/dL Troponin I (0.000-0.034) ng/mL Urine Appearance (Clear) Urine Protein (Negative) Urine Glucose (UA) (Negative) Urine Blood (Negative) Urine Bilirubin (Negative) Urine RBC (0-5) /hpf Urine Bacteria (None) /hpf Hyaline Casts (0-2) /lpf Urine Mucus (None) /hpf 07/21/24 07/21/24 07/21/24 Range/Units 14:11 16:00 18:10 WBC (3.8-10.6) k/uL Neutrophils # (1.3-7.7) k/uL Lymphocytes # (1.0-4.8) k/uL Monocytes # (0-1.0) k/uL PT (10.0-12.5) sec INR (<1.2) Potassium (3.5-5.1) mmol/L BUN (7-17) mg/dL Creatinine (0.52-1.04) mg/dL Glucose (74-99) mg/dL Magnesium (1.6-2.3) mg/dL Total Bilirubin (0.2-1.3) mg/dL Unconjugated Bilirubin (0.0-1.1) mg/dL Delta Bilirubin (0.0-0.2) mg/dL Troponin I 0.053 H* 0.055 H* (0.000-0.034) ng/mL Urine Appearance Cloudy H (Clear) Urine Protein 1+ H (Negative) Urine Glucose (UA) Trace H (Negative) Urine Blood Moderate H (Negative) Urine Bilirubin 1+ H (Negative) Urine RBC 20 H (0-5) /hpf Urine Bacteria Rare H (None) /hpf Hyaline Casts 6 H (0-2) /lpf Urine Mucus Rare H (None) /hpf 07/21/24 Range/Units 21:31 WBC (3.8-10.6) k/uL Neutrophils # (1.3-7.7) k/uL Lymphocytes # (1.0-4.8) k/uL Monocytes # (0-1.0) k/uL PT (10.0-12.5) sec INR (<1.2) Potassium (3.5-5.1) mmol/L BUN (7-17) mg/dL Creatinine (0.52-1.04) mg/dL Glucose (74-99) mg/dL Magnesium (1.6-2.3) mg/dL Total Bilirubin (0.2-1.3) mg/dL Unconjugated Bilirubin (0.0-1.1) mg/dL Delta Bilirubin (0.0-0.2) mg/dL Troponin I 0.053 H* (0.000-0.034) ng/mL Urine Appearance (Clear) Urine Protein (Negative) Urine Glucose (UA) (Negative) Urine Blood (Negative) Urine Bilirubin (Negative) Urine RBC (0-5) /hpf Urine Bacteria (None) /hpf Hyaline Casts (0-2) /lpf Urine Mucus (None) /hpf Assessment and Plan Assessment: 1. Chest pain/elevated troponin; rule out acute coronary syndrome -Patient will be admitted to telemetry; monitor cardiac enzymes and EKG -Consult cardiology 2. Acute syncope; likely related to acute cardiac event -Will remain on telemetry with plans to cycle troponin and monitor EKG; orthostatic vital signs -CT of the brain is negative for any acute process -Will order 2D echo -Bilateral carotid Doppler 3. Acute renal injury; start patient on IV fluids in form of normal saline at a rate of 75 cc an hour; monitor strict ADALBERTO's, daily weights, renal function electrolytes; avoid nephrotoxins and hypotension 4. Hyperbilirubinemia; transaminases within normal limits; total bilirubin is elevated at 4.5 with unconjugated bilirubin of 3.9 -We will monitor liver enzymes; obtain hepatic ultrasound -Order hepatitis profile 5. Hypertension; metoprolol 50 mg daily; valsartan 80 mg nightly 6. Hyperlipidemia; Lipitor 20 mg p.o. nightly DVT prophylaxis; SCDs/Xarelto CODE STATUS; full code
[2024-07-22] MEDS: MAGNESIUM OXIDE 400 MG TAB PO SCH (15:56)
--- NOTE | 2024-07-22 21:16 | US ---
EXAMINATION TYPE: US carotid duplex BILAT DATE OF EXAM: 07/21/2024 COMPARISON: NONE CLINICAL INDICATION: Female, 79 years old with history of Acute syncope; syncope TECHNIQUE: Carotid duplex ultrasound examination. Indirect Doppler criteria was utilized. FINDINGS: On grayscale images there is plaque seen in the bilateral CCAs and bulbs which appears to cause mild luminal narrowing and no ulcerated plaque is demonstrated. EXAM MEASUREMENTS: RIGHT: Peak Systolic Velocity (PSV) cm/sec ----- Right CCA: 70.2 ----- Right ICA: 104 ----- Right ECA: 104 ICA/CCA ratio: 1.5 RIGHT: End Diastole cm/sec ----- Right CCA: 16.2 ----- Right ICA: 29.8 ----- Right ECA: 18.4 LEFT: Peak Systolic Velocity (PSV) cm/sec ----- Left CCA: 62.2 ----- Left ICA: 94.0 ----- Left ECA: 77.6 ICA/CCA ratio: 1.5 LEFT: End Diastole cm/sec ----- Left CCA: 13.4 ----- Left ICA: 27.7 ----- Left ECA: 6.2 VERTEBRALS (direction of flow): Right Vertebral: Antegrade Left Vertebral: Antegrade Rhythm: Normal WAFER PRODUCTION LEAD WORKER NOTES: No significant stenosis seen IMPRESSION: 1. Mild atherosclerotic plaque bilaterally with no hemodynamically significant stenosis by flow para meters. 2. Antegrade flow bilateral vertebral arteries. Criteria for Assigning % of Stenosis / Diameter reduction (Estimation based on the indirect measurements of the internal carotid artery velocities (ICA PSV). 1. Normal (no stenosis)=ICA PSV < 125 cm/s: ratio < 2.0: ICA EDV<40 cm/s. 2. Less than 50% stenosis=ICA PSV < 125 cm/s: ratio < 2.0: ICA EDV<40 cm/s. 3. 50 to 69% stenosis=ICA PSV of 125 to 230 cm/s: ration 2.0 ? 4.0: ICA EDV 40-100 cm/s. 4. Greater than 70% stenosis to near occlusion= ICA PSV > 230 cm/s: ratio > 4.0: ICA EDV > 100 cm/s. 5. Near occlusion= ICA PSV velocities may be low or undetectable: variable ratio and ICA EDV. 6. Total occlusion=unable to detect flow. [facility], , 07/22/2024 9:14 PM
[2024-07-23] MEDS: PANTOPRAZOLE 40 MG TABLET PO SCH (06:33)
--- NOTE | 2024-07-23 07:52 | P.PN ---
Subjective Progress Note Date: 07/23/24 HISTORY OF PRESENT ILLNESS: 79-year-old office patient with multiple medical problem who is known to have history of coronary artery disease, A-fib, nonischemic cardiomyopathy with e jection fraction low hypertension, hyperlipidemia, AICD, previous history of a heart catheter and severe peripheral arterial disease post left iliac to popliteal stent with a stent of the right iliac artery who is also known to have history of memory loss who was hospitalized on July 21, 2024 with syncopal episode as family were helping her in the shower try to wash her hair and noticed that her eyes rolled back in her head and she was essentially went down on the floor she lowered her to the floor was unresponsive for about 2 minutes call 911 EMS brought her to the emergency department initial assessment with white blood cell been elevated normal BUN/creatinine with a glucose of 159. Total bilirubin was 4.5 magnesium 1.6 chlorides EKG showed ventricular rate of 69 without any major abnormality chest x-ray did not show any consolidation. Patient ended up seeing cardiology agreed to interrogate the AICD to see if there is any abnormality with her arrhythmia echocardiogram is pending resume home [facility] waiting for final conclusion and decision. 07/23/2024: Patient is doing very well, carotid ultrasound came back negative, liver ultrasound was done and still pending, her echocardiogram will be done today. Talking to the family about how the event happened seizure should be excluded will consult neurology and patient will be doing an EEG to exclude the possibility of seizure as well. Her elevated troponin still not an ischemic basis if her echocardiogram does not show any major change with her ejection fraction or wall motion abnormality no need for any further cardiac testing. Involve PT OT repeat blood work if patient is doing well hopefully discharge home tomorrow. REVIEW OF SYSTEMS: CONSTITUTIONAL: Well-developed no acute respiratory distress. EYES: No icterus sclerae, no conjunctivitis. EARS, NOSE, MOUTH, THROAT, and FACE: No sore throat, lymphadenopathy, carotid bruits or deformity. RESPIRATORY: No SOB cough or wheezes. CARDIOVASCULAR: Positive PND orthopnea palpitation positive recurrent angina and syncope. GASTROINTESTINAL: No Abd pain, Nausea or vomiting, no Diarrhea or constipation, No GI Bleed, no distention or masses. GENITOURINARY: Negative for Hematuria or UTI, no kidney stones. INTEGUMENT/BREAST: Negative for any muscular injury with mild osteoarthritis.. HEMATOLOGIC/LYMPHATIC: Negative for bleed or purpura. MUSCULOSKELTAL: Negative for Myalgia or arthralgia. NEURLOGICAL: Slight memory loss with syncope no major weakness. BEHAVIORAL/PSYCH: Negative. ENDOCRINE: Negative. PHYSICAL EXAMINATION: General Appearance: Alert, cooperative, no distress, appears stated age. Neck HEENT: Supple, no lymphadenopathy, no thyroid enlargement, no carotid bruits. Lungs: Clear to auscultation without crackles or wheezes no rhonchi, no deformity. Chest Wall: Chest wall normal expansion with deep inspiration no tenderness and no deformity was found on exam, no costochondral pain or discomfort. Heart: Irregular rate and rhythm, S1, S2 normal, no murmur, rub or gallop. Back: Symmetric, no curvature, ROM normal, no CVA tenderness. Abdomen: Soft, non-tender, bowel sounds active all four quadrants, no masses, no organomegaly. Extremities: Extremities normal, atraumatic, no cyanosis or edema. Pulses: Decreased pulse bilaterally worse on the left than the right side Skin: Skin color, texture, tugor normal, no rashes or lesions. Neurologic: Alert oriented with confusion cranial nerves II through XII intact, no motor deficit, no abnormal balance or gait. ASSESSMENT AND PLAN: _Syncope: Likely etiology, apparently AICD was interrogated with no major abnorm ality was found, try to exclude any possibility for orthostatic hypotension or any other abnormality can be explained with her elevated bilirubin at this point so far waiting for further testing including echocardiogram and probably carotid ultrasound. No overall neuro weakness at this point. _Possible seizure: Order an EEG and consult neurology for now keep watching for any recurrent symptoms. _Abnormal troponin: No evidence of myocardial injury or ischemia at this point patient be seen cardiology again waiting for echocardiogram studies any change compared to before might require intervention. _Nonischemic cardiomyopathy post AICD still on medical management. _Coronary artery disease with 100% blockage of the distal PLB for heart cath in 2008 and mild stenosis of the LAD did not require any interventions to the medical management. _Hypertension: Remain on valsartan 80 mg daily along with metoprolol succinate 50 mg. _A-fib with RVR: Doing much better still on metoprolol and Xarelto. _Alzheimer disease: Remain on donepezil 10 mg a day with no side effects so far. _Hyperlipidemia: Will continue patient on atorvastatin 20 mg at bedtime. _Osteoporosis: Remain on Boniva along with calcium and vitamin D. _Debility: Patient has not been moving much will consult PT and OT for potential help _CODE STATUS: Full code. Discussion: Patient was admitted on the still waiting for echocardiogram carotid ultrasound still watching for any possible need for further interventio n. Her UA is not totally negative she is not on any antibiotic yet waiting for the culture. Objective - Vital Signs Vital signs: Vital Signs Temp 98.0 F 07/22/24 20:50 Pulse 71 07/23/24 00:25 Resp 16 07/23/24 00:25 BP 129/74 07/23/24 00:25 Pulse Ox 98 07/23/24 00:25 FiO2 Intake & Output 07/22/24 07/22/24 07/23/24 06:59 18:59 06:59 Intake Total 260 10 Output Total 200 Balance 60 10 Weight 47.627 kg Intake: IV 20 10 Invasive Line 1 20 10 Oral 240 Output: Urine 200 Other: Voiding Method External Catheter External Catheter External Catheter # Voids 1 - Labs CBC & Chem 7: 07/22/24 07:43 07/22/24 07:43 Labs: Abnormal Lab Results - Last 24 Hours (Table) 07/22/24 07/22/24 Range/Units 07:43 07:43 RBC 3.75 L (3.80-5.40) m/uL Neutrophils # 7.8 H (1.3-7.7) k/uL Monocytes # 1.1 H (0-1.0) k/uL BUN 20 H (7-17) mg/dL Glucose 116 H (74-99) mg/dL Calcium 8.1 L (8.4-10.2) mg/dL Total Bilirubin 3.3 H (0.2-1.3) mg/dL Unconjugated Bilirubin 2.8 H (0.0-1.1) mg/dL Delta Bilirubin 0.5 H (0.0-0.2) mg/dL Total Protein 5.5 L (6.3-8.2) g/dL Albumin 3.0 L (3.5-5.0) g/dL
--- NOTE | 2024-07-23 07:53 | US ---
EXAMINATION TYPE: US liver DATE OF EXAM: 07/23/2024 COMPARISON: CT CLINICAL INDICATION: Female, 79 years old with history of Hyperbilirubinemia; abnormal labs TECHNIQUE: Multiple sonographic images of the right upper quadrant are obtained. FINDINGS: EXAM MEASUREMENTS: Liver Length: 11.3 cm Gallbladder Wall: 0.3 cm CBD: 0.5 cm Right Kidney: 10.0 x 3.8 x 4.7 cm RESIDENT DIRECTOR NOTES: Elderly pt with dementia- immobile, difficult to penetrate Pancreas: 3mm panc duct, tail obscured by overlying bowel gas Liver: Visualized portions appeared wnl Gallbladder: contracted, pt is NPO Evidence for sonographic Weeks's sign: No CBD: wnl Right Kidney: No evidence of hydro Incidental- right pleaural effusion IMPRESSION: 1. Borderline prominence of the pancreatic duct. 2. Incidental right-sided pleural effusion. [facility], , 07/23/2024 7:51 AM
[2024-07-23 08:48] LABS: African American GFR (CKD) 87 (>60 ml/min/1.73 sqM); Anion Gap 5 mmol/L; Blood Urea Nitrogen 13 mg/dL (7-17); Carbon Dioxide 27 mmol/L (22-30); Chloride 103 mmol/L (98-107); Glucose 100 mg/dL (74-99); Non-African American GFR(CKD) 76 (>60 ml/min/1.73 sqM); Potassium 3.4 mmol/L (3.5-5.1); Sodium 135 mmol/L (137-145)
[2024-07-23 09:48] LABS: Hepatitis A Antibody IgM Nonreactive (Nonreactive); Hepatitis B Core IgM Nonreactive (Nonreactive); Hepatitis B Surface Antigen Nonreactive (Nonreactive); Hepatitis C IgG Antibody Nonreactive (Nonreactive)
--- NOTE | 2024-07-23 10:51 | CA ---
Transthoracic Echo Report Name: Bri Conner Age: 79 Gender: F : 1945 Exam Date: 07/23/2024 09:01 Exam Location: [facility] Ht (in): 66 Wt (lb): 105 Ordering Physician: Mariano Hartman MD Attending/Referring Phys: [id number], Minnie Patient Financial Specialist Millicent Pappas RDCS Procedure CPT: Indications: acute syncope Cardiac Hx: Pacemaker Technical Quality: Fair Contrast 1: Total Dose (mL): Contrast 2: Total Dose (mL): MEASUREMENTS (Male / Female) Normal Values 2D ECHO LV Diastolic Diameter PLAX 4.5 cm 4.2 - 5.9 / 3.9 - 5.3 cm LV Systolic Diameter PLAX 3.4 cm IVS Diastolic Thickness 0.8 cm 0.6 - 1.0 / 0.6 - 0.9 cm LVPW Diastolic Thickness 0.9 cm 0.6 - 1.0 / 0.6 - 0.9 cm LV Relative Wall Thickness 0.4 RV Internal Dim ED PLAX 0.7 cm LVOT Diameter 1.6 cm LA Systolic Diameter LX 3.7 cm 3.0 - 4.0 / 2.7 - 3.8 cm LV Diastolic Volume MOD BP 46.5 cm??? 67 - 155 / 56 - 104 cm??? LV Systolic Volume MOD BP 24.8 cm??? 22 - 58 / 19 - 49 cm??? LV Ejection Fraction MOD BP 46.6 % >= 55 % LV Cardiac Index MOD BP 763.7 cm???/min???m??? LV Diastolic Volume MOD 4C 53.7 cm??? LV Systolic Volume MOD 4C 26.8 cm??? LV Ejection Fraction MOD 4C 50.2 % LV Cardiac Index MOD 4C 949.7 cm???/min???m??? LV Diastolic Length 4C 6.8 cm LV Systolic Length 4C 5.6 cm LV Diastolic Volume MOD 2C 39.3 cm??? LV Systolic Volume MOD 2C 22.5 cm??? LV Ejection Fraction MOD 2C 42.9 % LV Cardiac Index MOD 2C 594.3 cm???/min???m??? LV Diastolic Length 2C 6.6 cm LV Systolic Length 2C 5.9 cm M-MODE Aortic Root Diameter MM 2.7 cm LA Systolic Diameter MM 3.4 cm LA Ao Ratio MM 1.3 DOPPLER AV Peak Velocity 183.4 cm/s AV Peak Gradient 13.5 mmHg AV Mean Velocity 110.8 cm/s AV Mean Gradient 6.0 mmHg AV Velocity Time Integral 45.5 cm LVOT Peak Velocity 84.6 cm/s LVOT Peak Gradient 2.9 mmHg LVOT Velocity Time Integral 21.1 cm LVOT Stroke Volume 44.0 cm??? LVOT Stroke Volume Index 28.9 ml/m??? LVOT Cardiac Index 1549.0 cm???/min???m??? AV Area Cont Eq vti 1.0 cm??? AV Area Cont Eq pk 1.0 cm??? Mitral E Point Velocity 88.5 cm/s Mitral A Point Velocity 119.3 cm/s Mitral E to A Ratio 0.7 MV Deceleration Time 249.5 ms MV E' Velocity 5.7 cm/s Mitral E to MV E' Ratio 15.5 FINDINGS Left Ventricle Left ventricular ejection fraction is estimated at 40-45 %. Mildly decreased left ventricular ejection fraction. Left ventricular cavity size normal. Mildly reduced global left ventricular systolic function. Right Ventricle Mild right ventricular dilatation. Unable to estimate the right ventricular systolic pressure. Right Atrium Mild right atrial dilatation. Catheter/pacemaker wire in the right atrial cavity. Left Atrium Mild left atrial dilatation. Mitral Valve Moderate thickening/calcification of the anterior mitral valve leaflet. [id number] mitral regurgitation. Posteriorly directed mitral regurgitation jet. Aortic Valve Trileaflet aortic valve. No aortic valve stenosis or regurgitation. Tricuspid Valve Structurally normal tricuspid valve. TraceNo tricuspid stenosis. tricuspid regurgitation. Pulmonic Valve Structurally normal pulmonic valve. Trace pulmonic regurgitation. No pulmonic stenosis. Pericardium Mild to Moderate pericardial effusion. Pericardial effusion located anteriorly. Aorta Normal size aortic root and proximal ascending aorta. CONCLUSIONS Mild LV systolic dysfunction Moderate to severe mitral regurgitation Moderate pericardial effusion Previewed by: Dr. Lamont Cortez MD (Electronically Signed) Final Date: 23 July 2024 10:49
[2024-07-23] MEDS: POTASSIUM CHLORIDE ER 20 MEQ TAB.ER PO ONE (13:02)
[2024-07-23 13:40] VITALS: BMI 17.6
--- NOTE | 2024-07-23 14:21 | P.PN ---
Subjective Progress Note Date: 07/23/24 HISTORY OF PRESENT ILLNESS: This is a 79-year-old female with a past medical history significant for co ronary artery disease, atrial fibrillation, hypertension, hyperlipidemia, and Alzheimer's dementia. Patient follows in the office with Dr. Goodman. We have been asked to see the patient in consultation for syncope. Patient examined at the bedside. Patient's daughter is present. Patient's daughter providing majority of the HPI. She states the patient has been bedbound for approximately 2 months due to worsening weakness and inability to walk. She states yesterday she got her mom up and put her in the shower. She states that she was washing her hair when she noticed that she slumped over forward and went limp. She states that her eyes were still open but she was not responding to her. She states that she immediately got her mom out of the shower and laid her on the bathroom floor. She states that she was on the phone with 911 her mother began to come around and was responsive to her. The patient denies having any chest pain or pressure. She denies having any shortness of breath. The patient's daughter does report her blood pressure was low when EMS arrived. Patient's ICD was interrogated with no acute events noted. DIAGNOSTICS: - EKG reveals sinus mechanism with no signs of acute ischemia - Chest xray negative for acute process. COPD changes. - Laboratory data: WBC on admission 16.1. Repeat 10.4. Hemoglobin 11.9. Platelet count 173. Sodium 140. Potassium 3.5. BUN 20. Creatinine 0.91. Magnesium 1.6. Troponin 0.053. 0.055. 0.053. - Current home cardiac medications include valsartan 80 mg at night, Lipitor 20 mg at night, Xarelto 15 mg at night, metoprolol succinate 50 mg at night - Most recent echocardiogram obtained in April 2023 revealed ejection fraction 42%, moderate MR, mild TR - Cardiac catheterization history: April 2009 revealing 30% mid LAD and 100% distal PLB 07/23/2024 Echocardiogram shows EF 40-45%, moderatesevere mitral regurgitation, moderate pericardial effusion. Daughter reports that patient is more confused today and does have history of Alzheimer's. Patient denies any chest pain or pressure. She does have mild shortness of breath. She did have brief episodes of SVT on telemetry, denies feeling any palpitations. PHYSICAL EXAM: VITAL SIGNS: Reviewed. GENERAL: Well-developed in no acute distress. HEENT: Head is normocephalic. Pupils are equal, round. Sclerae anicteric. Mucous membranes of the mouth are moist. Neck supple. No JVD LUNGS: Respirations even and unlabored. Lungs essentially clear to auscultation bilaterally. HEART: Regular rate and rhythm. S1 and S2 heard. + systolic murmur. ABDOMEN: Soft. Nondistended. Nontender. EXTREMITIES: Normal range of motion. No clubbing or cyanosis. Peripheral pulses intact. No lower extremity edema NEUROLOGIC: Awake and alert. Oriented x 3. ASSESSMENT: Syncope, likely related to orthostatic hypotension, ICD interrogation unremarkable Abnormal troponins, flat, no evidence of myocardial injury or ischemia Abnormal UA, possible urinary tract infection Coronary artery disease; 30% mid LAD and 100% distal PLB per cath in 2008 Nonischemic cardiomyopathy with previous ICD implantation Paroxysmal atrial fibrillation Hypertension Hyperlipidemia History of Alzheimer's dementia History of UTI Moderate pericardial effusion PLAN: We will check CRP and ESR. May consider colchicine. Recommend likely repeating echo in 1 week as an outpatient to reeval pericardial effusion. Continue with current regimen. Continue with telemetry. We will follow. Nurse practitioner note has been reviewed by physician. Signing provider agrees with the documented findings, assessment, and plan of care documented by MOLDER FOAM RUBBER as a scribe. Objective - Vital Signs Vital signs: Vital Signs Temp 97.9 F 07/23/24 11:54 Pulse 69 07/23/24 11:54 Resp 19 07/23/24 11:54 BP 134/77 07/23/24 11:54 Pulse Ox 99 07/23/24 11:57 FiO2 Intake & Output 07/22/24 07/23/24 07/23/24 18:59 06:59 18:59 Intake Total 260 10 120 Output Total 200 Balance 60 10 120 Weight 49.7 kg 49.7 kg Intake: IV 20 10 Invasive Line 1 20 10 Oral 240 120 Output: Urine 200 Other: Voiding Method External Catheter External Catheter # Voids 1 1 - Labs CBC & Chem 7: 07/22/24 07:43 07/23/24 07:35 Labs: Abnormal Lab Results - Last 24 Hours (Table) 07/23/24 Range/Units 07:35 Sodium 135 L (137-145) mmol/L Potassium 3.4 L (3.5-5.1) mmol/L Glucose 100 H (74-99) mg/dL Calcium 8.0 L (8.4-10.2) mg/dL Microbiology - Last 24 Hours (Table) 07/21/24 16:00 Urine Culture - Final Urine,Catheterized
--- NOTE | 2024-07-23 16:26 | P.CNNES ---
History of Present Illness Consult date: 07/23/24 Requesting physician: Mathieu Philippe Reason for Consult: Possible seizure History of Present Illness: Patient is a 79-year-old right-handed female came to the hospital by ambulance 2 days ago on 07/21/2024 at 12:40 PM. As per EMS flowsheet it was reported that patient's daughter was on the scene, who noticed that she was giving the patient a bath when she suddenly went unresponsive. There was no seizure action and that her eyes were open the whole time. She was able to get the patient out of the tub and then called 911. Upon EMS arrival, patient was alert and oriented to her baseline. She does have history of dementia. Patient was slow to respond but able to answer some questions. She denied any pain and stated that she felt "dizzy". Her blood glucose was 207. EKG showed sinus rhythm. Patient's vitals at the scene was blood pressure 99/68, which stayed low 94/66, pulse rate 80, respirations 16, and then finally it improved to 111/56. Vital signs on arrival blood pressure 110/93. Patient had orthostatics checked, in which her supine blood pressure is 142/88, sitting 136/70 and standing 133/68. Orthostatics negative. Blood test shows normal hemoglobin, WBC 16.1, which came down to 10.4. Platelets are normal. INR 1.3. Sodium is normal potassium 3.4, BUN 18 creatinine 1.11. Hepatic panel is normal, troponin is mildly elevated. UA is negative. EKG showed sinus rhythm. CT head showed no acute intracranial process. Chest x-ray showed no acute cardiopulmonary disease. COPD changes. Liver ultrasound showed borderline prominence of the pancreatic duct. Incidental finding of right-sided pleural effusion. Patient's daughter was present at this time, who provided with a history. Patient does have history of dementia, follows up with Dr. Parsons office, and see Debra DORAN. Patient's daughter mentions that she took her mom to walk-in shower when she had only wash her head when she became limp and unresponsive. She got her off to the floor and called 911 and by the time she was calling patient came out of it. No seizure-like activity was noted. Patient never has any history of seizures. Patient's daughter also mentions that patient has not been able to walk as well for the last 2 months. Her dementia seems to be getting worse as well and she has some paraphasic errors noted and she has problem with naming objects. Since she has been into the hospital, yesterday she was much more mentally clear, but today she was worse. Patient also has history of frequent UTIs, but not UTI at this time. Review of Systems Shortness of breath, generalized weakness, difficulty walking. No chest pain. She does have shortness of breath. Complains of dizziness sometimes. All other pertinent positive and negatives mentioned in HPI. Past Medical History Past Medical History: Hyperlipidemia, Hypertension, Osteoarthritis (OA), Pneumonia, Vascular Disorder Additional Past Medical History / Comment(s): See Dr. Andino H&P. "Weak heart." Hx Pneumonia many yrs ago. chronic back pain, stent in bilat leg, dementia, pacemaker, alzheimers History of Any Multi-Drug Resistant Organisms: None Reported Past Surgical History: AICD, Bowel Resection, Heart Catheterization, Orthopedic Surgery, Tonsillectomy Additional Past Surgical History / Comment(s): ARTHROSCOPY BILATERAL KNEES, LEFT ILIAC PTBA/STENT, 05-08-15 STENT TO RIGHTT ILIAC, colonoscopy. Past Anesthesia/Blood Transfusion Reactions: No Reported Reaction Additional Past Anesthesia/Blood Transfusion Reaction / Comment(s): With one prior surgery had difficulty waking up. Type of Cardiac Device: Permanent Pacemaker, AICD Device Placement Date:: 2008 and generator change 01/2016 Past Psychological History: No Psychological Hx Reported Smoking Status: Former smoker Past Alcohol Use History: None Reported Additional Past Alcohol Use History / Comment(s): Has been an on and off smoker for 30 +yrs, 1/2 PPD. Past Drug Use History: None Reported - Past Family History Sister(s) Family Medical History: Cancer Additional Family Medical History / Comment(s): Brain Cancer. Father Family Medical History: Myocardial Infarction ([place]) Medications and Allergies Home Medications Medication Instructions Recorded Confirmed Type Metoprolol Succinate (ER) [Toprol 50 mg PO HS 03/02/22 07/21/24 History Xl] Rivaroxaban [Xarelto] 15 mg PO HS 03/02/22 07/21/24 History Atorvastatin [Lipitor] 20 mg PO HS 07/21/24 07/21/24 History Baclofen [Lioresal] 10 mg PO HS 07/21/24 07/21/24 History Donepezil [Aricept] 10 mg PO HS 07/21/24 07/21/24 History Ergocalciferol (Vitamin D2) 1,250 mcg PO SALDIVAR 07/21/24 07/21/24 History [Drisdol (50,000 Iu)] Ibandronate Sodium [Boniva] 150 mg PO Q30D 07/21/24 07/21/24 History Valsartan [Diovan] 80 mg PO HS 07/21/24 07/21/24 History Allergies Allergy/AdvReac Type Severity Reaction Status Date / Time No Known Allergies Allergy Verified 07/21/24 16:33 Physical Examination - Vital Signs Vital Signs: Vital Signs Temp Pulse Resp BP BP BP BP 07/23/24 11:57 07/23/24 11:54 97.9 F 69 19 134/77 07/23/24 08:00 98.2 F 72 18 148/65 07/23/24 06:50 151/74 150/74 153/71 07/23/24 04:45 62 16 139/69 07/23/24 00:25 71 16 129/74 07/22/24 20:50 98.0 F 66 16 134/70 07/22/24 16:13 136/70 133/68 142/88 Pulse Ox 07/23/24 11:57 99 07/23/24 11:54 99 07/23/24 08:00 95 07/23/24 06:50 07/23/24 04:45 98 07/23/24 00:25 98 07/22/24 20:50 100 07/22/24 16:13 Intake and Output 07/23/24 07/23/24 07/23/24 06:59 14:59 22:59 Intake Total 120 Balance 120 Intake: Oral 120 Other: Voiding Method External Catheter # Voids 1 Weight 49.7 kg 49.7 kg Patient is an elderly female, laying in the bed. Patient is slightly short of breath. She is oxygen by nasal cannula. Patient is alert awake. Patient states that she is in the [facility] in [place]. 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 She states the month is January and the year is . Patient can name knuckles and ear but not the earlobe. She can repeat very well. No obvious aphasia or dysarthria. Attention, concentration and fund of knowledge are all limited. On cranial nerve examination, pupils are equal, round and reacting to light, visual rodrgiues are full on confrontation, with no neglect on double simultaneous stimulation. Extraocular muscles are intact with no nystagmus. Face is symmetric, tongue protrudes to the midline. Palatal elevation and sensation normal, hearing and shoulder shrug normal, facial sensation normal. On muscle strength testing, there is no obvious pronator drift. The strength of the senior software analyst, biceps, deltoid appears normal for age, although she is generalized weak. Hip flexion was also at least 4+, ankle dorsiflexion 4+. Patient requires lot of reinforcement to get any action done. Otherwise she would not give any effort. Took multiple attempts to check for ankle dorsiflexion and hip flexion. Deep tendon reflexes are symmetric 1+ to 2+ and plantars downgoing. Sensory to touch is equal with no neglect on double simultaneous stimulation. Cerebellar function showed no ataxia for [id number] testing. Tone and bulk of muscles normal. Gait deferred.. On general examination, there is no carotid bruit or murmur, S1-S2 audible. Chest is clear on consultation. Abdomen is soft nontender. No organomegaly, bowel sounds present. Peripheral pulses are present. No peripheral edema. Results - Laboratory Findings CBC and BMP: 07/22/24 07:43 07/23/24 07:35 Abnormal Lab Findings: Abnormal Labs 07/21/24 07/21/24 07/21/24 14:04 14:04 14:11 WBC 16.1 H RBC Neutrophils # 13.7 H Lymphocytes # 0.9 L Monocytes # 1.3 H PT 14.0 H INR 1.3 H Sodium Potassium 3.4 L BUN 18 H Creatinine 1.11 H Glucose 159 H Calcium Magnesium 1.5 L Total Bilirubin 4.5 H Unconjugated Bilirubin 3.9 H Delta Bilirubin 0.6 H Troponin I C-Reactive Protein Total Protein Albumin Urine Appearance Urine Protein Urine Glucose (UA) Urine Blood Urine Bilirubin Urine RBC Urine Bacteria Hyaline Casts Urine Mucus 07/21/24 07/21/24 07/21/24 14:11 16:00 18:10 WBC RBC Neutrophils # Lymphocytes # Monocytes # PT INR Sodium Potassium BUN Creatinine Glucose Calcium Magnesium Total Bilirubin Unconjugated Bilirubin Delta Bilirubin Troponin I 0.053 H* 0.055 H* C-Reactive Protein Total Protein Albumin Urine Appearance Cloudy H Urine Protein 1+ H Urine Glucose (UA) Trace H Urine Blood Moderate H Urine Bilirubin 1+ H Urine RBC 20 H Urine Bacteria Rare H Hyaline Casts 6 H Urine Mucus Rare H 07/21/24 07/22/24 07/22/24 21:31 07:43 07:43 WBC RBC 3.75 L Neutrophils # 7.8 H Lymphocytes # Monocytes # 1.1 H PT INR Sodium Potassium BUN 20 H Creatinine Glucose 116 H Calcium 8.1 L Magnesium Total Bilirubin 3.3 H Unconjugated Bilirubin 2.8 H Delta Bilirubin 0.5 H Troponin I 0.053 H* C-Reactive Protein Total Protein 5.5 L Albumin 3.0 L Urine Appearance Urine Protein Urine Glucose (UA) Urine Blood Urine Bilirubin Urine RBC Urine Bacteria Hyaline Casts Urine Mucus 07/23/24 07/23/24 07:35 07:35 WBC RBC Neutrophils # Lymphocytes # Monocytes # PT INR Sodium 135 L Potassium 3.4 L BUN Creatinine Glucose 100 H Calcium 8.0 L Magnesium Total Bilirubin Unconjugated Bilirubin Delta Bilirubin Troponin I C-Reactive Protein 8.4 H Total Protein Albumin Urine Appearance Urine Protein Urine Glucose (UA) Urine Blood Urine Bilirubin Urine RBC Urine Bacteria Hyaline Casts Urine Mucus Assessment and Plan Assessment: * Syncope, likely due to cardiac cause, rule out arrhythmia. Patient has moderate MR, moderate pericardial effusion, likely contributing to syncope. Orthostatics negative. Doubt seizure. * Elevated cardiac enzymes * Moderate MR, moderate pericardial effusion * Dementia, at least moderate degree * Generalized weakness * History of recurrent UTI * Hypertension * Hyperlipidemia * Pacemaker defibrillator. * CAD * Osteoarthritis Plan: * Carotid Doppler revealed mild atherosclerotic plaque bilaterally with no he modynamically significant stenosis. Antegrade flow in both vertebral arteries. * 2D echo revealed mild LV systolic dysfunction. LVEF 40 to 45%. Mildly reduced global left ventricular systolic function. Moderate to severe MR. Moderate pericardial effusion. * Await EEG. * Orthostatics are negative. * Cardiology on board. Need pacemaker interrogation rule out arrhythmia at the time of syncope. Patient on Xarelto 15 mg daily. * Regarding dementia and generalized weakness, recommend patient follow-up with her neurologist outpatient. Patient currently takes donepezil 10 mg daily. * Patient had a normal B12 487 on 05/10/2023, B6 20, vitamin D 52 and TSH 4.20. We will recheck these tests. * Neurology will follow after EEG. * Thank you for the consult.
[2024-07-24 08:55] LABS: Basophils % (A) 0 %; Eosinophils # (A) 0.1 k/uL (0-0.7); Eosinophils % (A) 1 %; HCT 45.9 % (34.0-46.0); Hypochromasia Moderate; Lymphocytes # (A) 1.3 k/uL (1.0-4.8); Lymphocytes % (A) 14 %; MCH 30.2 pg (25.0-35.0); MCHC 30.6 g/dL (31.0-37.0); MCV 98.8 fL (80.0-100.0); Mean Platelet Volume 7.9; Monocytes # (A) 0.8 k/uL (0-1.0); Monocytes % (A) 9 %; Neutrophils # (A) 6.6 k/uL (1.3-7.7); Neutrophils % (A) 74 %; Platelet Count 244 k/uL (150-450); RBC 4.64 m/uL (3.80-5.40); RDW 14.6 % (11.5-15.5); WBC 8.9 k/uL (3.8-10.6)
[2024-07-24 09:17] LABS: ALT 22 U/L (4-34); AST 39 U/L (14-36); African American GFR (CKD) >90 (>60 ml/min/1.73 sqM); Albumin 3.4 g/dL (3.5-5.0); Alkaline Phosphatase 56 U/L (38-126); Anion Gap 8 mmol/L; Blood Urea Nitrogen 9 mg/dL (7-17); Calcium 8.7 mg/dL (8.4-10.2); Carbon Dioxide 27 mmol/L (22-30); Chloride 105 mmol/L (98-107); Glucose 103 mg/dL (74-99); Non-African American GFR(CKD) 85 (>60 ml/min/1.73 sqM); Potassium 3.9 mmol/L (3.5-5.1); Sodium 140 mmol/L (137-145); Total Bilirubin 2.7 mg/dL (0.2-1.3); Total Protein 6.3 g/dL (6.3-8.2)
--- NOTE | 2024-07-24 15:13 | P.PN ---
Subjective HISTORY OF PRESENT ILLNESS: This is a 79-year-old female with a past medical history significant for coronary artery disease, atrial fibrillation, hypertension, hyperlipidemia, and Alzheimer's dementia. Patient follows in the office with Dr. Goodman. We have been asked to see the patient in consultation for syncope. Patient examined at the bedside. Patient's daughter is present. Patient's daughter providing majority of the HPI. She states the patient has been bedbound for approximately 2 months due to worsening weakness and inability to walk. She states yesterday she got her mom up and put her in the shower. She states that she was washing her hair when she noticed that she slumped over forward and went limp. She states that her eyes were still open but she was not responding to her. She states that she immediately got her mom out of the shower and laid her on the bathroom floor. She states that she was on the phone with 911 her mother began to come around and was responsive to her. The patient denies having any chest pain or pressure. She denies having any shortness of breath. Patient's blood pressure this morning is stable at 135/80. The patient's daughter does report her blood pressure was low when EMS arrived. Patient's ICD was interrogated with no acute events noted. DIAGNOSTICS: - EKG reveals sinus mechanism with no signs of acute ischemia - Chest xray negative for acute process. COPD changes. - Laboratory data: WBC on admission 16.1. Repeat 10.4. Hemoglobin 11.9. Platelet count 173. Sodium 140. Potassium 3.5. BUN 20. Creatinine 0.91. Magnesium 1.6. Troponin 0.053. 0.055. 0.053. - Current home cardiac medications include valsartan 80 mg at night, Lipitor 20 mg at night, Xarelto 15 mg at night, metoprolol succinate 50 mg at night - Most recent echocardiogram obtained in April 2023 revealed ejection fraction 42%, moderate MR, mild TR - Cardiac catheterization history: April 2009 revealing 30% mid LAD and 100% distal PLB 07/23/2024 Echocardiogram shows EF 40-45%, moderatesevere mitral regurgitation, moderate pericardial effusion. Daughter reports that patient is more confused today and does have history of Alzheimer's. Patient denies any chest pain or pressure. She does have mild shortness of breath. She did have brief episodes of SVT on telemetry, denies feeling any palpi tations. 07/24/2024 Patient examined this morning at the bedside. Patient without shortness of conchis th. She is laying flat in bed comfortably on room air. She denies any chest pain or pressure. Denies dizziness or lightheadedness. Denies any palpitations. Telemetry reveals sinus mechanism with occasional short runs of SVT. Echocardiogram completed revealing ejection fraction 40 to 45%, moderate to severe MR, posteriorly directed mitral regurgitation jet, trace tricuspid regurgitation, mild to moderate pericardial effusion. ESR 18. C-reactive protein 8.4. TSH 3.870 PHYSICAL EXAM: VITAL SIGNS: Reviewed. GENERAL: Well-developed in no acute distress. HEENT: Head is normocephalic. Pupils are equal, round. Sclerae anicteric. Mucous membranes of the mouth are moist. Neck supple. No JVD or thyromegaly LUNGS: Respirations even and unlabored. Lungs essentially clear to auscultation bilaterally. HEART: Regular rate and rhythm. S1 and S2 heard. + systolic murmur. ABDOMEN: Soft. Nondistended. Nontender. EXTREMITIES: Normal range of motion. No clubbing or cyanosis. Peripheral pulses intact. No lower extremity edema NEUROLOGIC: Awake and alert. ASSESSMENT: Syncope, likely related to orthostatic hypotension, ICD interrogation unremarkable Abnormal troponins, flat, no evidence of myocardial injury or ischemia Abnormal UA, possible urinary tract infection Coronary artery disease; 30% mid LAD and 100% distal PLB per cath in 2008 Nonischemic cardiomyopathy with previous ICD implantation Paroxysmal atrial fibrillation Hypertension Hyperlipidemia History of Alzheimer's dementia History of UTI Moderate to severe mitral regurgitation Mild to moderate pericardial effusion PLAN: Continue current cardiac medications Continue telemetry monitoring Continue to monitor blood pressure Patient has been started on colchicine per primary medicine From a cardiology standpoint, do not recommend any diuretics at this time Patient is stable for discharge home today from a cardiology perspective Patient to follow-up postdischarge in the office We will repeat echo on an outpatient basis to assess pericardial effusion Nurse practitioner note has been reviewed by physician. Signing provider agrees with the documented findings, assessment, and plan of care documented by ASPHALT MIXING MACHINE OPERATOR as a scribe. Objective - Vital Signs Vital signs: Vital Signs Temp 97.7 F 07/24/24 08:16 Pulse 68 07/24/24 08:16 Resp 17 07/24/24 08:16 BP 136/74 10/01/24 04:00 Pulse Ox 98 07/24/24 08:16 FiO2 Intake & Output 07/23/24 07/24/24 07/24/24 18:59 06:59 18:59 Intake Total 120 Output Total 1400 450 Balance -1280 -450 Weight 49.7 kg Intake: Oral 120 Output: Urine 1400 450 Other: Voiding Method Diaper Diaper External Catheter External Catheter # Bowel Movements 0 1 - Labs CBC & Chem 7: 07/24/24 08:17 07/24/24 08:17 Labs: Abnormal Lab Results - Last 24 Hours (Table) 07/23/24 07/24/24 Range/Units 07:35 08:17 MCHC 30.6 L (31.0-37.0) g/dL C-Reactive Protein 8.4 H (<1.0) mg/dL Microbiology - Last 24 Hours (Table) 07/21/24 16:00 Urine Culture - Final Urine,Catheterized
[2024-07-24 18:33] VITALS: BP 153/77; PULSE 85; RESP 16; TEMP 98.4
[2024-07-24] MEDS: COLCHICINE 0.6 MG EACH PO SCH (18:34)
--- NOTE | 2024-07-24 20:20 | EEG ---
ELECTROENCEPHALOGRAM REPORT PREAMBLE: This is an 79-year-old female who presented with syncope. EEG FINDINGS: This is a 21-channel digital EEG recorded with video component, utilizing 10/20 international system with referential and bipolar montages. The patient is mostly drowsy during the study, with presence of bilaterally symmetric theta frequency rhythm. Stage 2 sleep was attained with presence of sleep spindles and vertex waves and diffuse slow rhythm. Some brief periods of wakefulness were associated with normal appearing 9 hertz alpha background, posterior dominant, reactive to eye opening and closing. Photic driving response was not clearly seen. No focal or generalized epileptiform activity was seen. IMPRESSION: This is probably a normal EEG during drowsiness and stage 2 sleep. Some periods of wakefulness were associated with normal appearing background. No focal, lateralized, or epileptiform activity was seen. MMODL / IJN: [id number] / [facility] CENTERDiego
--- NOTE | 2024-07-25 08:42 | P.PN ---
Subjective Progress Note Date: 07/24/24 Patient was seen for a follow-up. Patient is laying in the bed, in no distress. Patient's daughter was also present. Objective - Vital Signs Vital signs: Vital Signs Temp 97.7 F 07/24/24 08:16 Pulse 78 07/24/24 12:00 Resp 17 07/24/24 12:00 BP 149/74 07/24/24 12:00 Pulse Ox 93 L 07/24/24 12:00 FiO2 Intake & Output 07/23/24 07/24/24 07/24/24 18:59 06:59 18:59 Intake Total 120 120 Output Total 1400 450 Balance -1280 -450 120 Weight 49.7 kg Intake: Oral 120 120 Output: Urine 1400 450 Other: Voiding Method Diaper Diaper Diaper External Catheter External Catheter External Catheter # Bowel Movements 0 1 - Exam Examination unchanged. Patient is more alert and awake. - Labs CBC & Chem 7: 07/24/24 08:17 07/24/24 08:17 Labs: Abnormal Lab Results - Last 24 Hours (Table) 07/24/24 07/24/24 Range/Units 08:17 08:17 MCHC 30.6 L (31.0-37.0) g/dL Glucose 103 H (74-99) mg/dL Total Bilirubin 2.7 H (0.2-1.3) mg/dL AST 39 H (14-36) U/L Albumin 3.4 L (3.5-5.0) g/dL Assessment and Plan Assessment: * Syncope, likely due to cardiac cause, rule out arrhythmia. Patient has moderate MR, moderate pericardial effusion, likely contributing to syncope. Orthostatics negative. Doubt seizure. * Elevated cardiac enzymes * Moderate MR, moderate pericardial effusion * Dementia, at least moderate degree * Generalized weakness * History of recurrent UTI * Hypertension * Hyperlipidemia * Pacemaker defibrillator. * CAD * Osteoarthritis Plan: * Carotid Doppler revealed mild atherosclerotic plaque bilaterally with no hemodynamically significant stenosis. Antegrade flow in both vertebral arteries. * 2D echo revealed mild LV systolic dysfunction. LVEF 40 to 45%. Mildly reduced global left ventricular systolic function. Moderate to severe MR. Moderate pericardial effusion. * EEG was probably normal during drowsiness and stage II sleep. Some periods of wakefulness were associated with normal appearing background. No focal, lateralized or epileptiform activity was seen. * Orthostatics are negative. * Cardiology on board. Need pacemaker interrogation rule out arrhythmia at the time of syncope. Patient on Xarelto 15 mg daily. * Regarding dementia and generalized weakness, recommend patient follow-up with her neurologist outpatient. Patient currently takes donepezil 10 mg daily. * B12 427, folate 6.0, TSH 3.87, all normal * Neurologically clear for discharge.
--- NOTE | 2024-08-08 19:11 | CDI ---
Documentation Clarification Form Date: 08/08/2024 06:44:36 PM From: Nakia Vidal Phone: Admit Date: 07/21/2024 03:49:00 PM Patient Name: Bri Conner Visit Number: [id number] Discharge Date: 07/24/2024 07:34:00 PM ATTENTION: The Clinical Documentation Specialists (CDI) and [facility] Coding Staff appreciate your assistance in clarifying documentation. Please respond to the clarification below the line at the bottom and electronically sign. The CDI & [facility] Coding staff will review the response and follow-up if needed. Please note: Queries are made part of the Legal Health Record. If you have any questions, please contact the author of this message via ITS. Doctor/Provider: Mathieu Philippe Your patient has diagnostic/radiology results: 2D echo revealed mild LV systolicdysfunction. LVEF 40 to 45%. Mildly reducedglobal LV systolic function. Please clarify if there is an additional diagnosis and/or clinical significance related to this result. History/Risk Factors: 79yo F, Syncope, likely related toorthostatic hypotension, MR, CAD, NICM, PAF, HTN, HLD, Alzheimers dementia, pericardial effusion, hyperbilirubinemia, Osteoporosis, PVD Clinical indicators: Hx of weak heart VS/Pulse OX: 91- 100 Echo: LV is estimated at 40-45 %. Mildly decreased LV EF. LV cavitysize normal. Mildly reducedglobal LV systolic function. Mild RV dilatation. Unable toestimate the RV. Mild right atrialdilatation. Catheter/pacemaker wire in the right atrial cavity. Mild left atrialdilatation. Moderatethickening/calcificationof the anterior MV leaflet. [id number]. Posteriorly directedMRjet. Trileaflet aortic valve. Noaortic valve stenosisorregurgitation. Structurally normal tricuspid valve. Trace Notricuspid stenosis. TR. Structurally normal pulmonic valve. Tracepulmonic regurgitation. Nopulmonic stenosis. Mild to Moderatepericardial effusion. Pericardial effusionlocated anteriorly. Normal size aortic root and proximal ascending aorta. Chest X Ray: Heart/mediastinum: Cardiomediastinal silhouette is unremarkable. Single-lead cardiacconduction device overlying the left hemithorax with lead projecting over the right ventricle. Treatment: Is there an additional diagnosis and/or clinical significance related to the above diagnostic/radiology result? [ ] Chronic Systolic Heart Failure (reduced EF) [ xx ] Acute Systolic Heart Failure (reduced EF) [ ] Result is not clinically significant (no additional diagnosis) [ ] Other, please specify [ ] Unable to determine (Template Last Reviewed: November 2020) MTDD
--- NOTE | 2024-08-15 21:28 | P.PN ---
Subjective Progress Note Date: 07/24/24 HISTORY OF PRESENT ILLNESS: 79-year-old office patient with multiple medical problem who is known to have history of coronary artery disease, A-fib, nonischemic cardiomyopathy with e jection fraction low hypertension, hyperlipidemia, AICD, previous history of a heart catheter and severe peripheral arterial disease post left iliac to popliteal stent with a stent of the right iliac artery who is also known to have history of memory loss who was hospitalized on July 21, 2024 with syncopal episode as family were helping her in the shower try to wash her hair and noticed that her eyes rolled back in her head and she was essentially went down on the floor she lowered her to the floor was unresponsive for about 2 minutes call 911 EMS brought her to the emergency department initial assessment with white blood cell been elevated normal BUN/creatinine with a glucose of 159. Total bilirubin was 4.5 magnesium 1.6 chlorides EKG showed ventricular rate of 69 without any major abnormality chest x-ray did not show any consolidation. Patient ended up seeing cardiology agreed to interrogate the AICD to see if there is any abnormality with her arrhythmia echocardiogram is pending resume home meds waiting for final conclusion and decision. 07/23/2024: Patient is doing very well, carotid ultrasound came back negative, liver ultrasound was done and still pending, her echocardiogram will be done today. Talking to the family about how the event happened seizure should be excluded will consult neurology and patient will be doing an EEG to exclude the possibility of seizure as well. Her elevated troponin still not an ischemic basis if her echocardiogram does not show any major change with her ejection fraction or wall motion abnormality no need for any further cardiac testing. Involve PT OT repeat blood work if patient is doing well hopefully discharge home tomorrow. July 24, 2024: Finding of patient's echocardiogram shows ejection fraction of 40-45 percentile with moderate to severe mitral regurgitation but no aortic stenosis or regurgitation followed pericardium showed mild to moderate pericardial effusion, mostly located anteriorly. Not quite sure if this is related to pericarditis or not, cardiologystarting patient on colchicine yest stephanie and advised to repeat echo in 1 week. Not clear whether this is can be treated as an outpatient in our preferred to have patient monitor and either assisted living or in the hospital which truthfully patient does not need to be in the hospital for 1 week but to observe at least and management over a day or 2 would be a good idea and the family are agreeable to probably have her and his next to do some physical therapy while being watched by nursing care will be appreciated. REVIEW OF SYSTEMS: CONSTITUTIONAL: Well-developed no acute respiratory distress. EYES: No icterus sclerae, no conjunctivitis. EARS, NOSE, MOUTH, THROAT, and FACE: No sore throat, lymphadenopathy, carotid bruits or deformity. RESPIRATORY: No SOB cough or wheezes. CARDIOVASCULAR: Positive PND orthopnea palpitation positive recurrent angina and syncope. GASTROINTESTINAL: No Abd pain, Nausea or vomiting, no Diarrhea or constipation, No GI Bleed, no distention or masses. GENITOURINARY: Negative for Hematuria or UTI, no kidney stones. INTEGUMENT/BREAST: Negative for any muscular injury with mild osteoarthritis.. HEMATOLOGIC/LYMPHATIC: Negative for bleed or purpura. MUSCULOSKELTAL: Negative for Myalgia or arthralgia. NEURLOGICAL: Slight memory loss with syncope no major weakness. BEHAVIORAL/PSYCH: Negative. ENDOCRINE: Negative. PHYSICAL EXAMINATION: General Appearance: Alert, cooperative, no distress, appears stated age. Neck HEENT: Supple, no lymphadenopathy, no thyroid enlargement, no carotid bruits. Lungs: Clear to auscultation without crackles or wheezes no rhonchi, no deformity. Chest Wall: Chest wall normal expansion with deep inspiration no tenderness and no deformity was found on exam, no costochondral pain or discomfort. Heart: Irregular rate and rhythm, S1, S2 normal, no murmur, rub or gallop. Back: Symmetric, no curvature, ROM normal, no CVA tenderness. Abdomen: Soft, non-tender, bowel sounds active all four quadrants, no masses, no organomegaly. Extremities: Extremities normal, atraumatic, no cyanosis or edema. Pulses: Decreased pulse bilaterally worse on the left than the right side Skin: Skin color, texture, tugor normal, no rashes or lesions. Neurologic: Alert oriented with confusion cranial nerves II through XII intact, no motor deficit, no abnormal balance or gait. ASSESSMENT AND PLAN: _Syncope: Likely etiology, apparently AICD was interrogated with no major abnormality was found, try to exclude any possibility for orthostatic hypotension or any other abnormality can be explained with her elevated bilirubin at this point so far waiting for further testing including echocar diogram and probably carotid ultrasound. No overall neuro weakness at this point. _Moderate-sized pericardial effusion: Could be the reason for the syncope in the first place causing more mild restricted event on the heart muscle at the time. And again not clear whether this is pericarditis or just pericardial effusion will treat with colchicine be careful and recheck again in 1 week. _Possible seizure: Order an EEG and consult neurology for now keep watching for any recurrent symptoms. EEG still pending. _Abnormal troponin: No evidence of myocardial injury or ischemia at this point patient be seen cardiology again waiting for echocardiogram studies any change compared to before might require intervention. _Elevated liver function test: Ultrasound of the liver reported with borderline prominent pancreatic duct with incidental right-sided pleural effusion but no abnormality found on the gallbladder or the liver area. Will repeat liver function test tomorrow. _Nonischemic cardiomyopathy post AICD still on medical management. _Coronary artery disease with 100% blockage of the distal PLB for heart cath in 2008 and mild stenosis of the LAD did not require any interventions to the medical management. _Hypertension: Remain on valsartan 80 mg daily along with metoprolol succinate 50 mg. _A-fib with RVR: Doing much better still on metoprolol and Xarelto. _Alzheimer disease: Remain on donepezil 10 mg a day with no side effects so far. _Hyperlipidemia: Will continue patient on atorvastatin 20 mg at bedtime. _Osteoporosis: Remain on Boniva along with calcium and vitamin D. _Debility: Patient has not been moving much will consult PT and OT for potential help _CODE STATUS: Full code. Discussion: She is doing well and still quite bit confused cardiology adding colchicine to treat this as a pericarditis or pericardial effusion causing symptoms will be done for now. Still possibly discharge patient today to follow in the office in next few days and to follow-up with cardiology next week. Objective - Vital Signs Vital signs: Vital Signs Temp 97.8 F 07/24/24 04:00 Pulse 78 07/24/24 04:00 Resp 18 07/24/24 04:00 BP 136/74 07/24/24 04:00 Pulse Ox 98 07/24/24 04:00 FiO2 Intake & Output 07/23/24 07/23/24 07/24/24 06:59 18:59 06:59 Intake Total 10 120 Output Total 1400 450 Balance 10 -1280 -450 Weight 49.7 kg 49.7 kg Intake: IV 10 Invasive Line 1 10 Oral 120 Output: Urine 1400 450 Other: Voiding Method External Catheter Diaper Diaper External Catheter External Catheter # Voids 1 # Bowel Movements 0 1 - Labs CBC & Chem 7: 07/22/24 07:43 07/23/24 07:35 Labs: Abnormal Lab Results - Last 24 Hours (Table) 07/23/24 07/23/24 Range/Units 07:35 07:35 Sodium 135 L (137-145) mmol/L Potassium 3.4 L (3.5-5.1) mmol/L Glucose 100 H (74-99) mg/dL Calcium 8.0 L (8.4-10.2) mg/dL C-Reactive Protein 8.4 H (<1.0) mg/dL Microbiology - Last 24 Hours (Table) 07/21/24 16:00 Urine Culture - Final Urine,Catheterized
--- NOTE | 2024-08-15 21:33 | P.DS ---
Providers Date of admission: 07/21/24 15:49 Attending physician: Mathieu Philippe Consults: 07/21/24 16:03 Consult Physician Urgent Consulting Provider: Radha Goodman Consult Reason/Comments: Syncope, elevated troponin Do you want consulting provider notified?: Yes 07/23/24 07:48 Consult Physician Routine Consulting Provider: Arnoldo Santamaria Consult Reason/Comments: possible SZ Do you want consulting provider notified?: Yes Primary care physician: [facility] Course: HISTORY OF PRESENT ILLNESS: 79-year-old office patient with multiple medical problem who is known to have history of coronary artery disease, A-fib, nonischemic cardiomyopathy with ejection fraction low hypertension, hyperlipidemia, AICD, previous history of a heart catheter and severe peripheral arterial disease post left iliac to popliteal stent with a stent of the right iliac artery who is also known to have history of memory loss who was hospitalized on July 21, 2024 with syncopal episode as family were helping her in the shower try to wash her hair and noticed that her eyes rolled back in her head and she was essentially went down on the floor she lowered her to the floor was unresponsive for about 2 minutes call 911 EMS brought her to the emergency department initial assessment with white blood cell been elevated normal BUN/creatinine with a glucose of 159. Total bilirubin was 4.5 magnesium 1.6 chlorides EKG showed ventricular rate of 69 without any major abnormality chest x-ray did not show any consolidation. Patient ended up seeing cardiology agreed to interrogate the AICD to see if there is any abnormality with her arrhythmia echocardiogram is pending [facility] final conclusion and decision. 07/23/2024: Patient is doing very well, carotid ultrasound came back negative, liver ultrasound was done and still pending, her echocardiogram will be done today. Talking to the family about how the event happened seizure should be excluded will consult neurology and patient will be doing an EEG to exclude the possibility of seizure as well. Her elevated troponin still not an ischemic basis if her echocardiogram does not show any major change with her ejection fraction or wall motion abnormality no need for any further cardiac testing. Involve PT OT repeat blood work if patient is doing well hopefully discharge home tomorrow. July 24, 2024: Finding of patient's echocardiogram shows ejection fraction of 40-45 percentile with moderate to severe mitral regurgitation but no aortic stenosis or regurgitation followed pericardium showed mild to moderate pericardial effusion, mostly located anteriorly. Not quite sure if this is related to pericarditis or not, cardiologystarting patient on colchicine yesterday and advised to repeat echo in 1 week. Not clear whether this is can be treated as an outpatient in our preferred to have patient monitor and either assisted living or in the hospital which truthfully patient does not need to be in the hospital for 1 week but to observe at least and management over a day or 2 would be a good idea and the family are agreeable to probably have her and his next to do some physical therapy while being watched by nursing care will be appreciated. REVIEW OF SYSTEMS: CONSTITUTIONAL: Well-developed no acute respiratory distress. EYES: No icterus sclerae, no conjunctivitis. EARS, NOSE, MOUTH, THROAT, and FACE: No sore throat, lymphadenopathy, carotid bruits or deformity. RESPIRATORY: No SOB cough or wheezes. CARDIOVASCULAR: Positive PND orthopnea palpitation positive recurrent angina and syncope. GASTROINTESTINAL: No Abd pain, Nausea or vomiting, no Diarrhea or constipation, No GI Bleed, no distention or masses. GENITOURINARY: Negative for Hematuria or UTI, no kidney stones. INTEGUMENT/BREAST: Negative for any muscular injury with mild osteoarthritis.. HEMATOLOGIC/LYMPHATIC: Negative for bleed or purpura. MUSCULOSKELTAL: Negative for Myalgia or arthralgia. NEURLOGICAL: Slight memory loss with syncope no major weakness. BEHAVIORAL/PSYCH: Negative. ENDOCRINE: Negative. PHYSICAL EXAMINATION: General Appearance: Alert, cooperative, no distress, appears stated age. Neck HEENT: Supple, no lymphadenopathy, no thyroid enlargement, no carotid bruits. Lungs: Clear to auscultation without crackles or wheezes no rhonchi, no deformity. Chest Wall: Chest wall normal expansion with deep inspiration no tenderness and no deformity was found on exam, no costochondral pain or discomfort. Heart: Irregular rate and rhythm, S1, S2 normal, no murmur, rub or gallop. Back: Symmetric, no curvature, ROM normal, no CVA tenderness. Abdomen: Soft, non-tender, bowel sounds active all four quadrants, no masses, no organomegaly. Extremities: Extremities normal, atraumatic, no cyanosis or edema. Pulses: Decreased pulse bilaterally worse on the left than the right side Skin: Skin color, texture, tugor normal, no rashes or lesions. Neurologic: Alert oriented with confusion cranial nerves II through XII intact, no motor deficit, no abnormal balance or gait. ASSESSMENT AND PLAN: _Syncope: Likely etiology, apparently AICD was interrogated with no major abnormality was found, try to exclude any possibility for orthostatic hypotension or any other abnormality can be explained with her elevated bilirubin at this point so far waiting for further testing including echocardiogram and probably carotid ultrasound. No overall neuro weakness at this point. _Moderate-sized pericardial effusion: Could be the reason for the syncope in the first place causing more mild restricted event on the heart muscle at the time. And again not clear whether this is pericarditis or just pericardial effusion will treat with colchicine be careful and recheck again in 1 week. _Possible seizure: Order an EEG and consult neurology for now keep watching for any recurrent symptoms. EEG still pending. _Abnormal troponin: No evidence of myocardial injury or ischemia at this point patient be seen cardiology again waiting for echocardiogram studies any change compared to before might require intervention. _Elevated liver function test: Ultrasound of the liver reported with borderline prominent pancreatic duct with incidental right-sided pleural effusion but no abnormality found on the gallbladder or the liver area. Will repeat liver function test tomorrow. _Nonischemic cardiomyopathy post AICD still on medical management. _Coronary artery disease with 100% blockage of the distal PLB for heart cath in 2008 and mild stenosis of the LAD did not require any interventions to the medical management. _Hypertension: Remain on valsartan 80 mg daily along with metoprolol succinate 50 mg. _A-fib with RVR: Doing much better still on metoprolol and Xarelto. _Alzheimer disease: Remain on donepezil 10 mg a day with no side effects so far. _Hyperlipidemia: Will continue patient on atorvastatin 20 mg at bedtime. _Osteoporosis: Remain on Boniva along with calcium and vitamin D. _Debility: Patient has not been moving much will consult PT and OT for potential help _CODE STATUS: Full code. Discussion: She is doing well and still quite bit confused cardiology adding colchicine to treat this as a pericarditis or pericardial effusion causing symptoms will be done for now. Still possibly discharge patient today to follow in the office in next few days and to follow-up with cardiology next week. Hospital course: Patient was admitted on 07/21/2024 for episode of syncope she is known to have history of A-fib nonischemic cardiomyopathy with ejection fraction of 50 percentile who also has AICD previous history of heart catheter with and severe peripheral vascular arterial disease post left iliac to popliteal stent with stent of the right iliac artery also known to have history of memory loss was hospitalized in July 21 with syncopal episode as family were helping her in the shower try to wash her hair and noticed her eyes rolled back in her head and she was essentially out completely the lower her to the floor in the bathroom she was unresponsive for about 2-minute, EMS was called and patient brought to the emergency department at [facility] finding at the time with mildly elevated white blood cell with slightly abnormal BUN/creatinine with normal ratio blood sugar 159 total bilirubin 4.5 with magnesium 1.6 patient ended up seeing cardiology agreed to do interrogation of the ICD to see if there is any abnormality with arrhythmia echocardiogram was performed as well patient was hospitalized at this point. Ejection fraction came at 40-45 percentile with moderate to severe mitral regurgitation but no aortic stenosis or regurgitation but finding consistent with mildly mild to moderate pericardial effusion mostly located anteriorly not quite sure with the finding consistent with most likely pericarditis discussed with cardiology to treat pericarditis with colchicine and to keep her on it for total of 30 to 60 days. Patient was well-managed at this point and not symptomatic blood pressure is doing well she was evaluated by neurology and cardiology and agree no further management need to be done patient could be discharged home to follow-up shortly as an outpatient. Time spent on patient discharge was over 35 minutes. Plan - Discharge Summary Discharge Rx Participant: No New Discharge Prescriptions: New Colchicine 0.6 mg PO AC-BRKFST #60 capsule Magnesium Carb,Citrate,Oxide [Magnesium Complex] 300 mg PO DAILY #60 tablet Pantoprazole [Protonix] 40 mg PO AC-BRKFST #30 tab Continue Rivaroxaban [Xarelto] 15 mg PO HS Baclofen [Lioresal] 10 mg PO HS Ibandronate Sodium [Boniva] 150 mg PO Q30D Donepezil [Aricept] 10 mg PO HS Ergocalciferol (Vitamin D2) [Drisdol (50,000 Iu)] 1,250 mcg PO SALDIVAR Atorvastatin [Lipitor] 20 mg PO HS No Action Nitroglycerin Sl Tabs [Nitrostat] 0.4 mg SUBLINGUAL Q10M PRN #25 tab PRN Reason: Hypertensive Emergency Acetaminophen Tab [Tylenol] 650 mg PO Q6HR PRN tab PRN Reason: Mild Pain Or Fever > 100.5 Sacubitril/Valsartan [Entresto 24 mg-26 mg Tablet] 0.5 each PO BID #60 tab Metoprolol Succinate (ER) [Toprol XL] 25 mg PO HS #0 Discharge Medication List Rivaroxaban [Xarelto] 15 mg PO HS 03/02/22 [History] Atorvastatin [Lipitor] 20 mg PO HS 07/21/24 [History] Baclofen [Lioresal] 10 mg PO HS 07/21/24 [History] Donepezil [Aricept] 10 mg PO HS 07/21/24 [History] Ergocalciferol (Vitamin D2) [Drisdol (50,000 Iu)] 1,250 mcg PO SALDIVAR 07/21/24 [History] Ibandronate Sodium [Boniva] 150 mg PO Q30D 07/21/24 [History] Colchicine 0.6 mg PO AC-BRKFST #60 capsule 07/24/24 [Rx] Magnesium Carb,Citrate,Oxide [Magnesium Complex] 300 mg PO DAILY #60 tablet 07/24/24 [Rx] Pantoprazole [Protonix] 40 mg PO AC-BRKFST #30 tab 07/24/24 [Rx] Acetaminophen Tab [Tylenol] 650 mg PO Q6HR PRN tab 07/26/24 [Rx] Metoprolol Succinate (ER) [Toprol XL] 25 mg PO HS #0 07/26/24 [Rx] Nitroglycerin Sl Tabs [Nitrostat] 0.4 mg SUBLINGUAL Q10M PRN #25 tab 07/26/24 [Rx] Sacubitril/Valsartan [Entresto 24 mg-26 mg Tablet] 0.5 each PO BID #60 tab 07/26/24 [Rx] Follow up Appointment(s)/Referral(s): Mathieu Philippe MD [Primary Care Provider] - 1-2 days (office closed, please call and make follow-up) Lamont Cortez MD [STAFF PHYSICIAN] - 1 Week (please call and make follow-up) Patient Instructions/Handouts: Syncope (DC), Peripheral Artery Disease (DC), Pericardial Effusion (DC) Discharge Disposition: HOME WITH HOME HEALTH SERVICES
== END 2024-07-24 19:34 | disposition home health service (06) ==
LOC: EC 12:40 → 3SCARD 15:49 → INTOOBSV 15:49 → 3SCARD 18:32 → UNDODISIN 07-24 19:34
PROVIDERS: ADMIT Internal Medicine Geriatric Medicine; ATTEND Internal Medicine Geriatric Medicine
DX: R55 Syncope and collapse (principal); I31.39 Other pericardial effusion (noninflammatory); R79.89 Other specified abnormal findings of blood chemistry; I11.0 Hypertensive heart disease with heart failure; I50.9 Heart failure, unspecified; I25.10 Atherosclerotic heart disease of native coronary artery without angina pectoris; E78.5 Hyperlipidemia, unspecified; G30.9 Alzheimer's disease, unspecified; F02.80 Dementia in other diseases classified elsewhere, unspecified severity, without behavioral disturbance, psychotic disturbance, mood disturbance, and anxiety; G89.29 Other chronic pain; R74.8 Abnormal levels of other serum enzymes; I42.8 Other cardiomyopathies; I34.0 Nonrheumatic mitral (valve) insufficiency; I48.0 Paroxysmal atrial fibrillation; M19.90 Unspecified osteoarthritis, unspecified site; M81.0 Age-related osteoporosis without current pathological fracture; N17.9 Acute kidney failure, unspecified; Z74.01 Bed confinement status; R53.81 Other malaise; Z79.01 Long term (current) use of anticoagulants; Z79.899 Other long term (current) drug therapy; Z86.73 Personal history of transient ischemic attack (TIA), and cerebral infarction without residual deficits; Z87.440 Personal history of urinary (tract) infections; Z87.891 Personal history of nicotine dependence; Z95.5 Presence of coronary angioplasty implant and graft; Z95.810 Presence of automatic (implantable) cardiac defibrillator
CPT/HCPCS: 96374; 96361; 99285; 36415; 94760; 95819; 93005; 93306; 97162; 80053 ×2; 80048 ×2; 80076; 80074; 85652; 84443; 82607; 82248; 82746; 83735 ×2; 84484; 85025 ×3; 85610; 85730; 86140; 81001; 87086; 71046; 93880; 76705; 70450; G0378 ×4; J2470; 96360

== ENCOUNTER 2024-07-25 01:43 | Observation (INO) | payer MEDICARE ==
--- NOTE | 2024-07-25 02:16 | ED ---
General Adult HPI - General Chief complaint: Recheck/Abnormal Lab/Rx Stated complaint: High BP Time Seen by Provider: 07/25/24 01:55 Source: patient Mode of arrival: ambulatory Limitations: no limitations - History of Present Illness Initial comments: Patient is am 79 y/o female with Alzheimer's dementia, congestive heart failure, hypertension presenting today for hypertension and shortness of breath. History is provided by patient's daughter. States that they were discharged 5 hours ago after patient was admitted for syncopal episode. Patient took her antihypertensives at 8:00 last night as prescribed.She woke up feeling short of breath. Patient's daughter took her BP and noted it to be 180 systolic and was told that should patient have any difficulty in breathing and high blood pressure, they should return to the ED. Patient has mild swelling of her bilateral LE was pt's daughter states is new for the patient. The patient denies chest pain however hx limited by patiebnt - Related Data Home Medications Medication Instructions Recorded Confirmed Rivaroxaban [Xarelto] 15 mg PO HS 03/02/22 07/25/24 Atorvastatin [Lipitor] 20 mg PO HS 07/21/24 07/25/24 Baclofen [Lioresal] 10 mg PO HS 07/21/24 07/25/24 Donepezil [Aricept] 10 mg PO HS 07/21/24 07/25/24 Ergocalciferol (Vitamin D2) 1,250 mcg PO SALDIVAR 07/21/24 07/25/24 [Drisdol (50,000 Iu)] Ibandronate Sodium [Boniva] 150 mg PO Q30D 07/21/24 07/25/24 Previous Rx's Medication Instructions Recorded Colchicine 0.6 mg PO AC-BRKFST #60 capsule 07/24/24 Magnesium Carb,Citrate,Oxide 300 mg PO DAILY #60 tablet 07/24/24 [Magnesium Complex] Pantoprazole [Protonix] 40 mg PO AC-BRKFST #30 tab 07/24/24 Acetaminophen Tab [Tylenol] 650 mg PO Q6HR PRN tab 07/26/24 Metoprolol Succinate (ER) [Toprol 25 mg PO HS #0 07/26/24 XL] Nitroglycerin Sl Tabs [Nitrostat] 0.4 mg SUBLINGUAL Q10M PRN #25 tab 10/03/24 Sacubitril/Valsartan [Entresto 24 0.5 each PO BID #60 tab 07/26/24 mg-26 mg Tablet] Allergies Allergy/AdvReac Type Severity Reaction Status Date / Time No Known Allergies Allergy Verified 07/25/24 07:55 Review of Systems ROS Statement: Those systems with pertinent positive or pertinent negative responses have been documented in the HPI. ROS Other: All systems not noted in ROS Statement are negative. Past Medical History Past Medical History: Hyperlipidemia, Hypertension, Osteoarthritis (OA), Pneumonia, Vascular Disorder Additional Past Medical History / Comment(s): See Dr. Andino H&P. "Weak heart." Hx Pneumonia many yrs ago. chronic back pain, stent in bilat leg, dementia, pacemaker, alzheimers History of Any Multi-Drug Resistant Organisms: None Reported Past Surgical History: AICD, Bowel Resection, Heart Catheterization, Orthopedic Surgery, Tonsillectomy Additional Past Surgical History / Comment(s): ARTHROSCOPY BILATERAL KNEES, LEFT ILIAC PTBA/STENT, 05-08-15 STENT TO RIGHTT ILIAC, colonoscopy. Past Anesthesia/Blood Transfusion Reactions: No Reported Reaction Additional Past Anesthesia/Blood Transfusion Reaction / Comment(s): With one prior surgery had difficulty waking up. Type of Cardiac Device: Permanent Pacemaker, AICD Device Placement Date:: 2008 and generator change 01/2016 Past Psychological History: No Psychological Hx Reported Smoking Status: Former smoker Past Alcohol Use History: None Reported Past Drug Use History: None Reported - Past Family History Sister(s) Family Medical History: Cancer Additional Family Medical History / Comment(s): Brain Cancer. Father Family Medical History: Myocardial Infarction (PR) General Exam - General Exam Comments Initial Comments: PE: CONSTITUTIONAL: No apparent distress, chronically ill appearing, mildly tachypneic SKIN: Warm, dry, no jaundice, hives or petechiae EYES: Pupils are equally round, extraocular movements intact without nystagmus, clear conjunctiva, non-icteric sclera HENT: Normocephalic, atraumatic, moist mucus membranes, oropharynx clear without exudates NECK: , Full range of motion, normal appearance PULMONARY: crackles in bilateral lung bases, no rhonchi or rales, no wheezes, mild tachypnea, no stridor, normal excursion, no accessory muscle use CARDIOVASCULAR: Regular rate, rhythm, normal S1 and S2. No appreciated murmurs, rubs or gallops. Strong radial pulses with intact distal perfusion. 1+ bilateral distal lower extremity edema GASTROINTESTINAL: Soft, active bowel sounds throughout, non-tender, non- distended, no palpable masses, no rebound or guarding. No hepatosplenomegaly MUSCULOSKELETAL: Extremities have no gross deformity, redness, or swelling. No calf swelling NEUROLOGIC:_a/o x 2, at baseline, GCS 15, normal mentation and speech. Moves all extremities x 4 without motor or sensory deficit PSYCHIATRIC:_normal mood and affect, thought process is pleasantly confused Limitations: no limitations Course Vital Signs 07/25/24 07/25/24 07/25/24 01:45 03:14 03:56 Temperature 97.8 F Pulse Rate 70 Respiratory 19 20 Rate Blood Pressure 182/93 158/105 146/95 O2 Sat by Pulse 96 99 Oximetry 07/25/24 07/25/24 07/25/24 04:01 06:00 08:01 Temperature Pulse Rate 82 71 Respiratory 16 20 Rate Blood Pressure 115/82 156/77 132/69 O2 Sat by Pulse 98 100 Oximetry 07/25/24 07/25/24 07/25/24 09:33 13:03 14:53 Temperature Pulse Rate 83 66 75 Respiratory 16 16 Rate Blood Pressure 135/90 152/82 129/88 O2 Sat by Pulse 96 98 Oximetry 07/25/24 17:52 Temperature Pulse Rate 83 Respiratory 18 Rate Blood Pressure 122/77 O2 Sat by Pulse 95 Oximetry EKG Findings - EKG Comments: EKG Findings:: Sinus rhythm, rate 81 bpm, QRS duration 85 ms, QT/QTc 375/412 ms, normal axis, PVC present, no ST elevations or depressions. Repeat EKG performed 4:34 AM due to artifact present on initial EKG. Sinus rhythm, rate 80 bpm, AR interval 136 ms, QRS duration 84 ms, QT/QTc 314/350 ms, normal axis, no new ST elevations or depressions, no arrhythmia Medical Decision Making - Medical Decision Making Was pt. sent in by a medical professional or institution (, PA, ROTARY DRILLER HELPER, urgent care, hospital, or alf...) When possible be specific @ -No Did you speak to anyone other than the patient for history (EMS, parent, family, police, friend...)? What history was obtained from this source @ -Spoke with patient's daughter Did you review nursing and triage notes (agree or disagree)? Why? @ -I reviewed and agree with nursing and triage notes Were old charts reviewed (outside hosp., previous admission, EMS record, old EKG, old radiological studies, urgent care reports/EKG's, alf records)? Report findings @ -Reviewed echocardiogram performed outpatient was here in the hospital, showed moderate pericardial effusion, ejection fraction 40 to 45%, mitral valve regurgitation Differential Diagnosis (chest pain, altered mental status, abdominal pain women, abdominal pain men, vaginal bleeding, weakness, fever, dyspnea, syncope, headache, dizziness, GI bleed, back pain, seizure, CVA, palpatations, mental health, musculoskeletal)? @Differential Dyspnea: Differential diagnosis remains broad however top considerations include hypertensive urgency/hypertensive emergency, flash pulmonary edema secondary to above, CHF, ACS, arrhythmia, tamponade, asthma, pneumonia, asthma this is not meant to be and all-inclusive list EKG interpreted by me (3pts min.). @ -As above X-rays interpreted by me (1pt min.). @Mild cardiomegaly, no obvious consolidations, no pneumothorax CT interpreted by me (1pt min.). @ -None done U/S interpreted by me (1pt. min.). @ -None done What testing was considered but not performed or refused? (CT, X-rays, U/S, labs)? Why? @ -None What meds were considered but not given or refused? Why? @ -None Did you discuss the management of the patient with other professionals (professionals i.e. , PA, ROTARY DRILLER HELPER, lab, RT, psych nurse, marriage and family social worker, cardiology specialist, teacher, real estate loan officer, case management director)? Give summary @ -No Was smoking cessation discussed for >3mins.? @ -No Was critical care preformed (if so, how long)? @ -Yes, 35 minutes, spent obtaining history from patient and surrogate, assessing and reassessment of patient, ordering and interpreting labs and imaging, ordering treatments and interventions Were there social determinants of health that impacted care today? How? (Homelessness, low income, unemployed, alcoholism, drug addiction, transportation, low edu. Level, literacy, decrease access to med. care, penitentiary, rehab)? @ -No Was there de-escalation of care discussed even if they declined (Discuss DNR or withdrawal of care, Hospice)? @ -No What co-morbidities impacted this encounter? (DM, HTN, Smoking, COPD, CAD, Cancer, CVA, ARF, Chemo, Hep., AIDS, mental health diagnosis, sleep apnea, morbid obesity)? @Hypertension, CHF Was patient admitted / discharged? Hospital course, mention meds given and route, prescriptions, significant lab abnormalities, going to OR and other pertinent info. @ -Hospital course admission- Patient is an 79 y/o female presenting with her daughter enma for hypertension and shortness of breath. Began suddenly while patient was sleeping this evening. Patient seen and assessed on arrival. Chronically ill appearing, mild tachypnea, at mental baseline, crackles in lung bases bilateral, 1+ bilateral LE pitting edema. No murmurs or gallops on cardiac exam. BP 182/83 on arrival. O2 sat 92%. Patient placed on O2 NC for comfort. Did consider bipap however patient only mildly tachypnea, in no distress and with hx alzheimer's, may become agitated with bipap administration, so will hold off on this unless patient's work of breathing increases or worsens. In setting of sudden onset shortness of breath, HTN, crackles in lungs and LE edema, high suspicion for flash pulmonary edema 2/2 hypertensive emergency. Will begin with SL nitroglyercin and reassess. Patient, based on medication list reviewed with patient's daughter does not receive diuretics at home so we will begin with a small dose of IV Lasix, 10 mg. Chest x-ray, BNP, troponin, EKG, comprehensive labs ordered. Patient daughter agreeable plan of care. Patient did have mild improvement in symptoms with for sublingual nitroglycerin. Blood pressure initially improved to 158 systolic. However she did become hypertensive again with systolic blood pressure increasing to 179 systolic and persistent mild tachypnea. Discussed with RN plan for administration of additional sublingual nitroglycerin. If patient's blood pressure again rises may consider nitro drip. After second sublingual nitroglycerin, blood pressure remained controlled and tachypnea much improved. Labs reviewed and significant for white blood cell c ount of 10.8, somewhat increased from yesterday morning which was 8.9 total bilirubin 2.7 which is similar to yesterday AST 47, similar to yesterday which was 39, troponin 0.028, BNP 3830. Will admit for hypertensive emergency. Discussed with Dr. Philippe, we discussed chronicity of patient's problems and that she has close follow up established, and could potentially be discharged home for outpatient follow up. I reassessed patient, she is resting comfortably, discussed possibility of discharge with patient's daughter and that patient could be seen tomorrow by PCP to further adjust medications as needed. Patient's daughter would feel much more comfortable if patient admitted as she remains c oncerned due to swelling in feet and pt's BP uncontrolled last night prior to coming in. Patient admitted in stable condition to Dr. Philippe. Undiagnosed new problem with uncertain prognosis? @ -No Drug Therapy requiring intensive monitoring for toxicity (Heparin, Nitro, Insulin, Cardizem)? @ -No Were any procedures done? @ -No Diagnosis/symptom? @ -Hypertensive emergency, CHF Acute, or Chronic, or Acute on Chronic? @ -Acute on chronic Uncomplicated (without systemic symptoms) or Complicated (systemic symptoms)? @ -Complicated Side effects of treatment? @ -No Exacerbation, Progression, or Severe Exacerbation? @ -exacerbation Poses a threat to life or bodily function? How? (Chest pain, USA, PR, pneumonia, PE, COPD, DKA, ARF, appy, cholecystitis, CVA, Diverticulitis, Homicidal, Suicidal, threat to staff... and all critical care pts) @ Yes - Lab Data Result diagrams: 07/25/24 03:04 07/26/24 09:50 Lab Results 07/25/24 07/25/24 07/25/24 Range/Units 03:04 03:04 03:04 WBC 10.8 H (3.8-10.6) k/uL RBC 4.45 (3.80-5.40) m/uL Hgb 13.9 (11.4-16.0) gm/dL Hct 42.9 (34.0-46.0) % MCV 96.3 (80.0-100.0) fL MCH 31.3 (25.0-35.0) pg MCHC 32.5 (31.0-37.0) g/dL RDW 15.0 (11.5-15.5) % Plt Count 289 (150-450) k/uL MPV 8.3 Neutrophils % 75 % Lymphocytes % 14 % Monocytes % 7 % Eosinophils % 2 % Basophils % 0 % Neutrophils # 8.2 H (1.3-7.7) k/uL Lymphocytes # 1.6 (1.0-4.8) k/uL Monocytes # 0.8 (0-1.0) k/uL Eosinophils # 0.2 (0-0.7) k/uL Basophils # 0.0 (0-0.2) k/uL PT 15.0 H (10.0-12.5) sec INR 1.5 H (<1.2) APTT 35.2 H (22.0-30.0) sec Sodium 139 (137-145) mmol/L Potassium (3.5-5.1) mmol/L Chloride 103 (98-107) mmol/L Carbon Dioxide 28 (22-30) mmol/L Anion Gap 8 mmol/L BUN 13 (7-17) mg/dL Creatinine 0.78 (0.52-1.04) mg/dL Est GFR (CKD-EPI)AfAm 83 (>60 ml/min/1.73 sqM) Est GFR (CKD-EPI)NonAf 72 (>60 ml/min/1.73 sqM) Glucose 119 H (74-99) mg/dL Plasma Lactic Acid Devin (0.7-2.0) mmol/L Calcium 9.1 (8.4-10.2) mg/dL Total Bilirubin 2.7 H (0.2-1.3) mg/dL AST 47 H (14-36) U/L ALT 26 (4-34) U/L Alkaline Phosphatase 49 (38-126) U/L Troponin I (0.000-0.034) ng/mL NT-Pro-B Natriuret Pep 3830 pg/mL Total Protein 7.6 (6.3-8.2) g/dL Albumin 4.2 (3.5-5.0) g/dL Urine Color Urine Appearance (Clear) Urine pH (5.0-8.0) Ur Specific [place] (1.001-1.035) Urine Protein (Negative) Urine Glucose (UA) (Negative) Urine Ketones (Negative) Urine Blood (Negative) Urine Nitrite (Negative) Urine Bilirubin (Negative) Urine Urobilinogen (<2.0) mg/dL Ur Leukocyte Esterase (Negative) 10/02/24 10/02/24 10/02/24 Range/Units 03:04 03:04 03:59 WBC (3.8-10.6) k/uL RBC (3.80-5.40) m/uL Hgb (11.4-16.0) gm/dL Hct (34.0-46.0) % MCV (80.0-100.0) fL MCH (25.0-35.0) pg MCHC (31.0-37.0) g/dL RDW (11.5-15.5) % Plt Count (150-450) k/uL MPV Neutrophils % % Lymphocytes % % Monocytes % % Eosinophils % % Basophils % % Neutrophils # (1.3-7.7) k/uL Lymphocytes # (1.0-4.8) k/uL Monocytes # (0-1.0) k/uL Eosinophils # (0-0.7) k/uL Basophils # (0-0.2) k/uL PT (10.0-12.5) sec INR (<1.2) APTT (22.0-30.0) sec Sodium (137-145) mmol/L Potassium (3.5-5.1) mmol/L Chloride (98-107) mmol/L Carbon Dioxide (22-30) mmol/L Anion Gap mmol/L BUN (7-17) mg/dL Creatinine (0.52-1.04) mg/dL Est GFR (CKD-EPI)AfAm (>60 ml/min/1.73 sqM) Est GFR (CKD-EPI)NonAf (>60 ml/min/1.73 sqM) Glucose (74-99) mg/dL Plasma Lactic Acid Devin 1.7 (0.7-2.0) mmol/L Calcium (8.4-10.2) mg/dL Total Bilirubin (0.2-1.3) mg/dL AST (14-36) U/L ALT (4-34) U/L Alkaline Phosphatase (38-126) U/L Troponin I 0.028 (0.000-0.034) ng/mL NT-Pro-B Natriuret Pep pg/mL Total Protein (6.3-8.2) g/dL Albumin (3.5-5.0) g/dL Urine Color Colorless Urine Appearance Clear (Clear) Urine pH 6.0 (5.0-8.0) Ur Specific [place] 1.006 (1.001-1.035) Urine Protein Negative (Negative) Urine Glucose (UA) Negative (Negative) Urine Ketones Negative (Negative) Urine Blood Negative (Negative) Urine Nitrite Negative (Negative) Urine Bilirubin Negative (Negative) Urine Urobilinogen <2.0 (<2.0) mg/dL Ur Leukocyte Esterase Negative (Negative) 07/25/24 Range/Units 05:03 WBC (3.8-10.6) k/uL RBC (3.80-5.40) m/uL Hgb (11.4-16.0) gm/dL Hct (34.0-46.0) % MCV (80.0-100.0) fL MCH (25.0-35.0) pg MCHC (31.0-37.0) g/dL RDW (11.5-15.5) % Plt Count (150-450) k/uL MPV Neutrophils % % Lymphocytes % % Monocytes % % Eosinophils % % Basophils % % Neutrophils # (1.3-7.7) k/uL Lymphocytes # (1.0-4.8) k/uL Monocytes # (0-1.0) k/uL Eosinophils # (0-0.7) k/uL Basophils # (0-0.2) k/uL PT (10.0-12.5) sec INR (<1.2) APTT (22.0-30.0) sec Sodium (137-145) mmol/L Potassium (3.5-5.1) mmol/L Chloride (98-107) mmol/L Carbon Dioxide (22-30) mmol/L Anion Gap mmol/L BUN (7-17) mg/dL Creatinine (0.52-1.04) mg/dL Est GFR (CKD-EPI)AfAm (>60 ml/min/1.73 sqM) Est GFR (CKD-EPI)NonAf (>60 ml/min/1.73 sqM) Glucose (74-99) mg/dL Plasma Lactic Acid Devin (0.7-2.0) mmol/L Calcium (8.4-10.2) mg/dL Total Bilirubin (0.2-1.3) mg/dL AST (14-36) U/L ALT (4-34) U/L Alkaline Phosphatase (38-126) U/L Troponin I 0.025 (0.000-0.034) ng/mL NT-Pro-B Natriuret Pep pg/mL Total Protein (6.3-8.2) g/dL Albumin (3.5-5.0) g/dL Urine Color Urine Appearance (Clear) Urine pH (5.0-8.0) Ur Specific [place] (1.001-1.035) Urine Protein (Negative) Urine Glucose (UA) (Negative) Urine Ketones (Negative) Urine Blood (Negative) Urine Nitrite (Negative) Urine Bilirubin (Negative) Urine Urobilinogen (<2.0) mg/dL Ur Leukocyte Esterase (Negative) Disposition Clinical Impression: Congestive heart failure, Hypertensive emergency Disposition: ADMITTED IP TO THIS HOSP Condition: Good
[2024-07-25] MEDS: NITROGLYCERIN SL TABS 0.4 MG TAB SUBLINGUAL PRN (02:44)
[2024-07-25] MEDS: FUROSEMIDE 10 MG/ML 2 ML VIAL IV ONE (03:13)
[2024-07-25 03:21] LABS: Basophils % (A) 0 %; Eosinophils # (A) 0.2 k/uL (0-0.7); Eosinophils % (A) 2 %; HCT 42.9 % (34.0-46.0); HGB 13.9 gm/dL (11.4-16.0); Lymphocytes # (A) 1.6 k/uL (1.0-4.8); Lymphocytes % (A) 14 %; MCH 31.3 pg (25.0-35.0); MCHC 32.5 g/dL (31.0-37.0); MCV 96.3 fL (80.0-100.0); Mean Platelet Volume 8.3; Monocytes # (A) 0.8 k/uL (0-1.0); Monocytes % (A) 7 %; Neutrophils # (A) 8.2 k/uL (1.3-7.7); Neutrophils % (A) 75 %; Platelet Count 289 k/uL (150-450); RBC 4.45 m/uL (3.80-5.40); WBC 10.8 k/uL (3.8-10.6)
[2024-07-25 03:55] LABS: INR 1.5 (<1.2); Partial Thromboplastin Time 35.2 sec (22.0-30.0)
[2024-07-25 04:49] LABS: ALT 26 U/L (4-34); African American GFR (CKD) 83 (>60 ml/min/1.73 sqM); Anion Gap 8 mmol/L; Blood Urea Nitrogen 13 mg/dL (7-17); Calcium 9.1 mg/dL (8.4-10.2); Carbon Dioxide 28 mmol/L (22-30); Chloride 103 mmol/L (98-107); Glucose 119 mg/dL (74-99); Non-African American GFR(CKD) 72 (>60 ml/min/1.73 sqM); Sodium 139 mmol/L (137-145); Total Bilirubin 2.7 mg/dL (0.2-1.3)
[2024-07-25 04:51] LABS: AST 47 U/L (14-36); Albumin 4.2 g/dL (3.5-5.0); Alkaline Phosphatase 49 U/L (38-126); Total Protein 7.6 g/dL (6.3-8.2)
[2024-07-25 04:57] LABS: NT-Pro-B-Type Natriuretic Pept 3830 pg/mL
[2024-07-25 05:02] LABS: Appearance,Urine Clear (Clear); Bilirubin,Urine Negative (Negative); Blood,Urine Negative (Negative); Color,Urine Colorless; Glucose,Urine (UA) Negative (Negative); Ketones,Urine Negative (Negative); Leukocyte Esterase,Urine Negative (Negative); Nitrite,Urine Negative (Negative); Protein,Urine Negative (Negative); Specific Gravity,Urine 1.006 (1.001-1.035); Urobilinogen,Urine <2.0 mg/dL (<2.0)
[2024-07-25] MEDS: FUROSEMIDE 10 MG/ML 2 ML VIAL IV STA (06:14)
[2024-07-25] MEDS ORDERED: NALOXONE 0.4 MG/ML 1 ML VIAL IV PRN (06:30)
[2024-07-25] MEDS ORDERED: ACETAMINOPHEN TAB 325 MG TAB PO PRN (06:30)
--- NOTE | 2024-07-25 06:54 | XR ---
EXAM: XR Chest, 2 Views CLINICAL HISTORY: ITS.REASON XR Reason: difficulty breathing, concern for pulm edema TECHNIQUE: Frontal and lateral views of the chest. COMPARISON: No relevant prior studies available. IMPRESSION: 1. Cardiomegaly. Left subclavian approach pacemaker with leads. 2. No evidence of consolidation. 3. Mild thickening of the minor fissure with minimal interstitial changes which may relate to interstitial pulmonary edema.
--- NOTE | 2024-07-25 08:26 | P.HPIM ---
History of Present Illness H&P Date: 07/25/24 HISTORY OF PRESENT ILLNESS: 79-year-old with active medical history of coronary artery disease, A-fib, nonischemic cardiomyopathy with low ejection fraction, history of hypertension, hyperlipidemia, AICD, severe peripheral vascular disease, worsening and advanced dementia who was hospitalized July 21, 2024 for syncopal episode possible seizure versus arrhythmia was in the hospital afternoon yesterday full workup including seeing cardiology and neurology with testing including echo, carotid, EEG, CAT scan of the brain, monitor worker and so on were done the patient came back to be negative for any findings to explain her syncopal episode the patient was supposed to be seen in the office sometime tomorrow and by cardiology and the following few days she brought back to the emergency department bandage maker today because claim developed to have slight dyspnea and shortness of breath family took her blood pressure at 5 and mildly elevated at the time needed to the emergency department Testing including her CK troponin was negative proBNP was 3840, electrolyte and CBC did not show any major abnormality compared to which she had early UA was negative chest x-ray shows slight vascular congestion without any pleural effusion consistent with most likely mild CHF. EKG did not show any major abnormality pulse rate running 81 bpm with supraventricular rhythm only. Apparently the emergency room tried to talk to family about treating patient and sending her home family declined the patient was hospitalized for fluid overload and possible congestive heart failure with mild exacerbation and early pulmonary edema. Started on IV diuretics blood pressure medication will be adjusted patient be seen cardiology will try to adjust her medication stabilizer and talk to family whether there is any need to consider SNF for rehab or require more help when she goes home evaluation today is not any different than yesterday whatsoever patient is very stable clinically and this admission could have been avoided apparently family were more panicky about the complaints specially the blood pressure even knowing that patient is on valsartan 80 mg at bedtime to avoid any orthostatic hypotension because she usually runs quite bit low. REVIEW OF SYSTEMS: CONSTITUTIONAL: Well-developed no acute respiratory distress. EYES: No icterus sclerae, no conjunctivitis. EARS, NOSE, MOUTH, THROAT, and FACE: No sore throat, lymphadenopathy, carotid bruits or deformity. RESPIRATORY: No SOB cough or wheezes. CARDIOVASCULAR: Positive PND orthopnea palpitation positive recurrent angina and syncope. GASTROINTESTINAL: No Abd pain, Nausea or vomiting, no Diarrhea or constipation, No GI Bleed, no distention or masses. GENITOURINARY: Negative for Hematuria or UTI, no kidney stones. INTEGUMENT/BREAST: Negative for any muscular injury with mild osteoarthritis.. HEMATOLOGIC/LYMPHATIC: Negative for bleed or purpura. MUSCULOSKELTAL: Negative for Myalgia or arthralgia. NEURLOGICAL: Slight memory loss with syncope no major weakness. BEHAVIORAL/PSYCH: Negative. ENDOCRINE: Negative. PHYSICAL EXAMINATION: General Appearance: Alert, cooperative, no distress, appears stated age. Neck HEENT: Supple, no lymphadenopathy, no thyroid enlargement, no carotid bruits. Lungs: Clear to auscultation without crackles or wheezes no rhonchi, no deformity. Chest Wall: Chest wall normal expansion with deep inspiration no tenderness and no deformity was found on exam, no costochondral pain or discomfort. Heart: Irregular rate and rhythm, S1, S2 normal, no murmur, rub or gallop. Back: Symmetric, no curvature, ROM normal, no CVA tenderness. Abdomen: Soft, non-tender, bowel sounds active all four quadrants, no masses, no organomegaly. Extremities: Extremities normal, atraumatic, no cyanosis or edema. Pulses: Decreased pulse bilaterally worse on the left than the right side Skin: Skin color, texture, tugor normal, no rashes or lesions. Neurologic: Alert oriented with confusion cranial nerves II through XII intact, no motor deficit, no abnormal balance or gait. ASSESSMENT AND PLAN: _Slight dyspnea and shortness of breath consistent with mild CHF and cardiomyo tor with mild fluid overload, patient will be on IV diuretics, consult cardiology echocardiogram was done from last admission to be review watch her weight and urine output. Will titrate activity gradually as well. _Urgent hypertension: Adjust Valsartan to 80 mg twice a day and will add smaller dose of amlodipine if needed. _Recent syncope: Not clear etiology the full explanation the patient might have mild pericarditis had caused a syncopal episode in the first place. _Pericarditis: With mild pleural effusion and slight inflamed pericardium was supposed to stay on colchicine 0.6 mg daily for total of 4 to 6 weeks and echocardiogram to be repeated again in 2 weeks by cardiology. _Moderate-sized pericardial effusion: Most likely from pericarditis was post to have another echo in the next 2 weeks. _Elevated liver function test: Most likely hypoperfusion liver function test are better so far. _Nonischemic cardiomyopathy post AICD still on medical management. And has been doing well up till now may be adjustment of her medication specially valsartan and diuretics can be beneficial and helpful. _Coronary artery disease with 100% blockage of the distal PLB for heart cath in 2008 and mild stenosis of the LAD did not require any interventions to the medic al management. _Hypertension: Remain on valsartan 80 mg daily along with metoprolol succinate 50 mg. _A-fib with RVR: Doing much better still on metoprolol and Xarelto. _Alzheimer disease: Remain on donepezil 10 mg a day with no side effects so far. _Hyperlipidemia: Will continue patient on atorvastatin 20 mg at bedtime. _Osteoporosis: Remain on Boniva along with calcium and vitamin D. _Debility: Patient has not been moving much will consult PT and OT for potential help _GI prophylaxis: Patient will remain on Pepcid 20 mg daily. _DVT prophylaxis: Continue Xarelto 15 mg daily. CODE STATUS: Full code. Admit patient to observation for 1-2 night stay. Past Medical History Past Medical History: Hyperlipidemia, Hypertension, Osteoarthritis (OA), Pneumonia, Vascular Disorder Additional Past Medical History / Comment(s): See Dr. Andino H&P. "Weak heart." Hx Pneumonia many yrs ago. chronic back pain, stent in bilat leg, dementia, pacemaker, alzheimers History of Any Multi-Drug Resistant Organisms: None Reported Past Surgical History: AICD, Bowel Resection, Heart Catheterization, Orthopedic Surgery, Tonsillectomy Additional Past Surgical History / Comment(s): ARTHROSCOPY BILATERAL KNEES, LEFT ILIAC PTBA/STENT, 05-08-15 STENT TO RIGHTT ILIAC, colonoscopy. Past Anesthesia/Blood Transfusion Reactions: No Reported Reaction Additional Past Anesthesia/Blood Transfusion Reaction / Comment(s): With one prior surgery had difficulty waking up. Type of Cardiac Device: Permanent Pacemaker, AICD Device Placement Date:: 2008 and generator change 01/2016 Past Psychological History: No Psychological Hx Reported Smoking Status: Former smoker Past Alcohol Use History: None Reported Past Drug Use History: None Reported - Past Family History Sister(s) Family Medical History: Cancer Additional Family Medical History / Comment(s): Brain Cancer. Father Family Medical History: Myocardial Infarction ([place]) Medications and Allergies Home Medications Medication Instructions Recorded Confirmed Type Metoprolol Succinate (ER) [Toprol 50 mg PO HS 03/02/22 07/21/24 History XL] Rivaroxaban [Xarelto] 15 mg PO HS 03/02/22 07/21/24 History Atorvastatin [Lipitor] 20 mg PO HS 07/21/24 07/21/24 History Baclofen [Lioresal] 10 mg PO HS 07/21/24 07/21/24 History Donepezil [Aricept] 10 mg PO HS 07/21/24 07/21/24 History Ergocalciferol (Vitamin D2) 1,250 mcg PO SALDIVAR 07/21/24 07/21/24 History [Drisdol (50,000 Iu)] Ibandronate Sodium [Boniva] 150 mg PO Q30D 07/21/24 07/21/24 History Valsartan [Diovan] 80 mg PO HS 07/21/24 07/21/24 History Colchicine 0.6 mg PO AC-BRKFST #60 capsule 07/24/24 Rx Magnesium Carb,Citrate,Oxide 300 mg PO DAILY #60 tablet 07/24/24 Rx [Magnesium Complex] Pantoprazole [Protonix] 40 mg PO AC-BRKFST #30 tab 07/24/24 Rx Allergies Allergy/AdvReac Type Severity Reaction Status Date / Time No Known Allergies Allergy Verified 07/25/24 01:45 Physical Exam Vitals: Vital Signs Temp Pulse Resp BP Pulse Ox 07/25/24 06:00 82 16 156/77 98 07/25/24 04:01 115/82 07/25/24 03:56 146/95 07/25/24 03:14 20 158/105 99 07/25/24 01:45 97.8 F 70 19 182/93 96 Intake and Output 07/24/24 07/24/24 07/25/24 14:59 22:59 06:59 Other: Weight 40.823 kg Results CBC & Chem 7: 07/25/24 03:04 07/25/24 03:04 Labs: Abnormal Lab Results - Last 24 Hours (Table) 07/25/24 07/25/24 07/25/24 Range/Units 03:04 03:04 03:04 WBC 10.8 H (3.8-10.6) k/uL Neutrophils # 8.2 H (1.3-7.7) k/uL PT 15.0 H (10.0-12.5) sec INR 1.5 H (<1.2) APTT 35.2 H (22.0-30.0) sec Glucose 119 H (74-99) mg/dL Total Bilirubin 2.7 H (0.2-1.3) mg/dL AST 47 H (14-36) U/L
[2024-07-25] MEDS ORDERED: NON FORMULARY DRUG (Ibandronate Sodium [Boniva] 150 MG Tablet) PO SCH (08:30)
[2024-07-25] MEDS: FAMOTIDINE 20 MG TAB PO SCH (09:38)
[2024-07-25] MEDS: MAGNESIUM OXIDE 400 MG TAB PO SCH (09:38)
[2024-07-25] MEDS: SACUBITRIL/VALSARTAN 24 MG-26 MG TABLET PO SCH (12:56)
[2024-07-25] MEDS: FUROSEMIDE 10 MG/ML 2 ML VIAL IV SCH (12:58)
--- NOTE | 2024-07-25 15:55 | P.CRDCN ---
History of Present Illness Consult date: 07/25/24 History of present illness: This is a 79-year-old female with a past medical history significant for coronary artery disease, atrial fibrillation, hypertension, hyperlipidemia, and Alzheimer's dementia. Patient follows in the office with Dr. Goodman. Patient had a recent hospitalization and was discharged yesterday evening. Patient was seen by cardiology and was recommended if she had shortness of breath to return to the hospital him was noted at that time to have a moderate pericardial effusion. Patient's caregiver states that when she was changing the patient's diaper she thought the patient was quite short of breath. Due to underlying dementia, patient is unable to provide information about shortness of breath. She appears to be quite comfortable now and flat in stretcher. Patient has been bedbound for approximately 2 months due to worsening weakness and inability to walk. Patient's ICD was interrogated on last hospitalization and found to have no acute events noted. Patient is seen today in the emergency center waiting for a bed on the observation unit. Blood pressure 135/90, heart rate 83, pulse ox 100%. Patient is s/p IV Lasix 10 mg times once and 20 mg times once. EKG reveals sinus mechanism with no signs of acute ischemia Chest xray cardiomegaly. Pacemaker. No consolidation. Mild thickening of the minor fissure could be pulmonary edema. WBC 10.8, hemoglobin 13.9. INR 1.5. Electrolytes are normal. BUN 13 creatinine 0.78. Troponin negative x 2. proBNP 3830. Current home cardiac medications include atorvastatin 20 mg at bedtime, Toprol XL 50 mg at bedtime, Xarelto 15 mg at bedtime, valsartan 80 mg at bedtime, patient is also on colchicine 0.6 mg daily Most recent echocardiogram obtained 07/21/2024 revealed mild LV systolic dysfunction with EF of 40 to 45%, moderate to severe mitral regurgitation, moderate pericardial effusion. Cardiac catheterization history: April 2009 revealing 30% mid LAD and 100% distal PLB REVIEW OF SYSTEMS: At the time of my exam: Due to underlying dementia, patient is unable to answer questions. PHYSICAL EXAM: VITAL SIGNS: Reviewed. GENERAL: Well-developed in no acute distress. HEENT: Head is normocephalic. Pupils are equal, round. Sclerae anicteric. Mucous membranes of the mouth are moist. Neck supple. No JVD or thyromegaly LUNGS: Respirations even and unlabored. Lungs essentially clear to auscultation bilaterally. HEART: Regular rate and rhythm. S1 and S2 heard. + systolic murmur. ABDOMEN: Soft. Nondistended. Nontender. EXTREMITIES: Normal range of motion. No clubbing or cyanosis. Peripheral pulses intact. No lower extremity edema NEUROLOGIC: Awake and alert. ASSESSMENT: Reported shortness of breath, none now Recent hospitalization for syncope, likely related to orthostatic hypotension, ICD interrogation unremarkable Moderate pericardial effusion Moderate to severe MR Coronary artery disease; 30% mid LAD and 100% distal PLB per cath in 2008 Nonischemic cardiomyopathy with previous ICD implantation Paroxysmal atrial fibrillation Hypertension Hyperlipidemia History of Alzheimer's dementia History of UTI PLAN: Continue current cardiac medications including colchicine Add Lasix 20 mg IV twice daily and most likely transition to oral tomorrow Monitor ADALBERTO, daily weights, electrolytes and renal function No plan at this time to repeat echocardiogram Monitor blood pressure for the next 24 hours Continue telemetry monitoring Further recommendations pending patient course Nurse practitioner note has been reviewed by physician. Signing provider agrees with the documented findings, assessment, and plan of care documented by BUSINESS OFFICE ASSISTANT as a scribe. Past Medical History Past Medical History: Hyperlipidemia, Hypertension, Osteoarthritis (OA), Pneumonia, Vascular Disorder Additional Past Medical History / Comment(s): See Dr. Andino H&P. "Weak heart." Hx Pneumonia many yrs ago. chronic back pain, stent in bilat leg, dementia, pacemaker, alzheimers History of Any Multi-Drug Resistant Organisms: None Reported Past Surgical History: AICD, Bowel Resection, Heart Catheterization, Orthopedic Surgery, Tonsillectomy Additional Past Surgical History / Comment(s): ARTHROSCOPY BILATERAL KNEES, LEFT ILIAC PTBA/STENT, 05-08-15 STENT TO RIGHTT ILIAC, colonoscopy. Past Anesthesia/Blood Transfusion Reactions: No Reported Reaction Additional Past Anesthesia/Blood Transfusion Reaction / Comment(s): With one prior surgery had difficulty waking up. Type of Cardiac Device: Permanent Pacemaker, AICD Device Placement Date:: 2008 and generator change 01/2016 Past Psychological History: No Psychological Hx Reported Smoking Status: Former smoker Past Alcohol Use History: None Reported Additional Past Alcohol Use History / Comment(s): Has been an on and off smoker for 30 +yrs, 1/2 PPD. Past Drug Use History: None Reported - Past Family History Sister(s) Family Medical History: Cancer Additional Family Medical History / Comment(s): Brain Cancer. Father Family Medical History: Myocardial Infarction ([place]) Medications and Allergies Home Medications Medication Instructions Recorded Confirmed Type Metoprolol Succinate (ER) [Toprol 50 mg PO HS 03/02/22 07/25/24 History XL] Rivaroxaban [Xarelto] 15 mg PO HS 03/02/22 07/25/24 History Atorvastatin [Lipitor] 20 mg PO HS 07/21/24 07/25/24 History Baclofen [Lioresal] 10 mg PO HS 07/21/24 07/25/24 History Donepezil [Aricept] 10 mg PO HS 07/21/24 07/25/24 History Ergocalciferol (Vitamin D2) 1,250 mcg PO SALDIVAR 07/21/24 07/25/24 History [Drisdol (50,000 Iu)] Ibandronate Sodium [Boniva] 150 mg PO Q30D 07/21/24 07/25/24 History Valsartan [Diovan] 80 mg PO HS 07/21/24 07/25/24 History Colchicine 0.6 mg PO AC-BRKFST #60 capsule 07/24/24 07/25/24 Rx Magnesium Carb,Citrate,Oxide 300 mg PO DAILY #60 tablet 07/24/24 07/25/24 Rx [Magnesium Complex] Pantoprazole [Protonix] 40 mg PO AC-BRKFST #30 tab 07/24/24 07/25/24 Rx Allergies Allergy/AdvReac Type Severity Reaction Status Date / Time No Known Allergies Allergy Verified 07/25/24 07:55 Physical Exam Vitals: Vital Signs Temp Pulse Resp BP Pulse Ox 07/25/24 09:33 83 135/90 07/25/24 08:01 71 20 132/69 100 07/25/24 06:00 82 16 156/77 98 07/25/24 04:01 115/82 07/25/24 03:56 146/95 07/25/24 03:14 20 158/105 99 07/25/24 01:45 97.8 F 70 19 182/93 96 Intake and Output 07/24/24 07/25/24 07/25/24 22:59 06:59 14:59 Other: Weight 40.823 kg Results 07/25/24 03:04 07/25/24 03:04 Cardiac Enzymes 07/25/24 07/25/24 07/25/24 Range/Units 03:04 03:04 05:03 AST 47 H (14-36) U/L Troponin I 0.028 0.025 (0.000-0.034) ng/mL Coagulation 07/25/24 Range/Units 03:04 PT 15.0 H (10.0-12.5) sec APTT 35.2 H (22.0-30.0) sec CBC 07/25/24 Range/Units 03:04 WBC 10.8 H (3.8-10.6) k/uL RBC 4.45 (3.80-5.40) m/uL Hgb 13.9 (11.4-16.0) gm/dL Hct 42.9 (34.0-46.0) % Plt Count 289 (150-450) k/uL Comprehensive Metabolic Panel 07/25/24 Range/Units 03:04 Sodium 139 (137-145) mmol/L Potassium (3.5-5.1) mmol/L Chloride 103 (98-107) mmol/L Carbon Dioxide 28 (22-30) mmol/L BUN 13 (7-17) mg/dL Creatinine 0.78 (0.52-1.04) mg/dL Glucose 119 H (74-99) mg/dL Calcium 9.1 (8.4-10.2) mg/dL AST 47 H (14-36) U/L ALT 26 (4-34) U/L Alkaline Phosphatase 49 (38-126) U/L Total Protein 7.6 (6.3-8.2) g/dL Albumin 4.2 (3.5-5.0) g/dL Current Medications Generic Name Dose Route Start Last Admin Trade Name Freq PRN Reason Stop Dose Admin Acetaminophen 650 mg 07/25/24 06:30 Acetaminophen Tab 325 Mg Tab PO Q6HR PRN Mild Pain or Fever > 100.5 Atorvastatin Calcium 20 mg 07/25/24 21:00 Atorvastatin 20 Mg Tab PO HS [facility] Baclofen 10 mg 07/25/24 21:00 Baclofen 10 Mg Tab PO HS [facility] Colchicine 0.6 mg 07/26/24 07:30 Colchicine 0.6 Mg Each PO AC-BRKFST [facility] Donepezil HCl 10 mg 07/25/24 21:00 Donepezil 10 Mg Tab PO HS [facility] Ergocalciferol 1,250 mcg 07/29/24 09:00 Ergocalciferol 1,250 Mcg (50,000 Iu) Capsule PO SALDIVAR [facility] Famotidine 20 mg 07/25/24 09:00 07/25/24 09:38 Famotidine 20 Mg Tab PO 20 mg BID [facility] Administration Magnesium Oxide 400 mg 07/25/24 09:00 07/25/24 09:38 Magnesium Oxide 400 Mg Tab PO 400 mg DAILY [facility] Administration Metoprolol Succinate 50 mg 07/25/24 21:00 Metoprolol Succinate (Er) 50 Mg Tab.Er.24h PO HS [facility] Naloxone HCl 0.2 mg 07/25/24 06:30 Naloxone 0.4 Mg/Ml 1 Ml Vial IV Q2M PRN Opioid Reversal Nitroglycerin 0.4 mg 07/25/24 02:14 07/25/24 03:57 Nitroglycerin Sl Tabs 0.4 Mg Tab SUBLINGUAL 0.4 mg Q10M PRN Administration Hypertensive Emergency Pantoprazole Sodium 40 mg 07/26/24 07:30 Pantoprazole 40 Mg Tablet PO AC-BRKFST [facility] Rivaroxaban 15 mg 07/25/24 21:00 Rivaroxaban 15 Mg Tab PO HS [facility] Protocol Intake and Output 07/24/24 07/25/24 07/25/24 22:59 06:59 14:59 Other: Weight 40.823 kg 07/25/24 03:04 07/25/24 03:04
[2024-07-25] MEDS: BACLOFEN 10 MG TAB PO SCH (22:57)
[2024-07-25] MEDS: METOPROLOL SUCCINATE (ER) 50 MG TAB.ER.24H PO SCH (22:57)
[2024-07-25] MEDS: ATORVASTATIN 20 MG TAB PO SCH (22:57)
[2024-07-25] MEDS: DONEPEZIL 10 MG TAB PO SCH (23:07)
[2024-07-25] MEDS: RIVAROXABAN 15 MG TAB PO SCH (23:07)
[2024-07-26] MEDS: PANTOPRAZOLE 40 MG TABLET PO SCH (06:41)
[2024-07-26] MEDS ORDERED: COLCHICINE 0.6 MG EACH PO SCH (07:30)
[2024-07-26] MEDS: FAMOTIDINE 20 MG TAB PO SCH (09:17)
[2024-07-26] MEDS: COLCHICINE 0.6 MG EACH PO SCH (09:17)
[2024-07-26 10:24] LABS: African American GFR (CKD) 54 (>60 ml/min/1.73 sqM); Anion Gap 3 mmol/L; Blood Urea Nitrogen 23 mg/dL (7-17); Calcium 8.5 mg/dL (8.4-10.2); Carbon Dioxide 37 mmol/L (22-30); Chloride 97 mmol/L (98-107); Glucose 116 mg/dL (74-99); Non-African American GFR(CKD) 47 (>60 ml/min/1.73 sqM); Potassium 3.8 mmol/L (3.5-5.1); Sodium 137 mmol/L (137-145)
[2024-07-26 12:58] VITALS: BMI 16.5
[2024-07-26 14:44] VITALS: BP 101/69; PULSE 85; RESP 15; TEMP 98.9
[2024-07-26] MEDS ORDERED: METOPROLOL SUCCINATE (ER) 25 MG TAB.ER.24H PO SCH (21:00)
[2024-07-29] MEDS ORDERED: ERGOCALCIFEROL 1,250 MCG (50,000 IU) CAPSULE PO SCH (09:00)
--- NOTE | 2024-08-02 00:04 | P.DS ---
Providers Date of admission: 07/25/24 06:31 Attending physician: Mathieu Philippe Consults: 07/25/24 06:30 Consult Physician Routine Consulting Provider: Radha Goodman Consult Reason/Comments: CHF Do you want consulting provider notified?: Yes, Notify in am Primary care physician: Mathieu Philippe [facility] Course: HISTORY OF PRESENT ILLNESS: 79-year-old with active medical history of coronary artery disease, A-fib, nonischemic cardiomyopathy with low ejection fraction, history of hypertension, hyperlipidemia, AICD, severe peripheral vascular disease, worsening and advanced dementia who was hospitalized July 21, 2024 for syncopal episode possible seizure versus arrhythmia was in the hospital afternoon yesterday full workup including seeing cardiology and neurology with testing including echo, carotid, EEG, CAT scan of the brain, cardiac nurse specialist and so on were done the patient came back to be negative for any findings to explain her syncopal episode the patient was supposed to be seen in the office sometime tomorrow and by cardiology and the following few days she brought back to the emergency department supervisor hydrochloric area today because claim developed to have slight dyspnea and shortness of breath family took her blood pressure at 5 and mildly elevated at the time needed to the emergency department Testing including her CK troponin was negative proBNP was 3840, electrolyte and CBC did not show any major abnormality compared to which she had early UA was negative chest x-ray shows slight vascular congestion without any pleural effusion consistent with most likely mild CHF. EKG did not show any major abnormality pulse rate running 81 bpm with supraventricular rhythm only. Apparently the emergency room tried to talk to family about treating patient and sending her home family declined the patient was hospitalized for fluid overload and possible congestive heart failure with mild exacerbation and early pulmonary edema. Started on IV diuretics blood pressure medication will be adjusted patient be seen cardiology will try to adjust her medication stabilizer and talk to family whether there is any need to consider SNF for rehab or require more help when she goes home evaluation today is not any different than yesterday whatsoever patient is very stable clinically and this admission could have been avoided apparently family were more panicky about the complaints specially the blood pressure even knowing that patient is on valsartan 80 mg at bedtime to avoid any orthostatic hypotension because she usually runs quite bit low. 07/26/2024: She has been feeling much better, stable vitals, electrolytes did not show any significant drop in creatinine GFR dropped down slightly to only with minimally change creatinine compared to his baseline. Urgent hypertension was treated with valsartan 80 mg was adjusted and if needed will add amlodipine. The patient found to have pericardial effusion was diagnosed with possibility of mild pericarditis and started on colchicine and prepare hopefully for getting her back to do another echocardiogram in 2 weeks. Liver function test had improved some. No need for intervention at this point and holding well so far. REVIEW OF SYSTEMS: CONSTITUTIONAL: Well-developed no acute respiratory distress. EYES: No icterus sclerae, no conjunctivitis. EARS, NOSE, MOUTH, THROAT, and FACE: No sore throat, lymphadenopathy, carotid bruits or deformity. RESPIRATORY: No SOB cough or wheezes. CARDIOVASCULAR: Positive PND orthopnea palpitation positive recurrent angina and syncope. GASTROINTESTINAL: No Abd pain, Nausea or vomiting, no Diarrhea or constipation, No GI Bleed, no distention or masses. GENITOURINARY: Negative for Hematuria or UTI, no kidney stones. INTEGUMENT/BREAST: Negative for any muscular injury with mild osteoarthritis.. HEMATOLOGIC/LYMPHATIC: Negative for bleed or purpura. MUSCULOSKELTAL: Negative for Myalgia or arthralgia. NEURLOGICAL: Slight memory loss with syncope no major weakness. BEHAVIORAL/PSYCH: Negative. ENDOCRINE: Negative. PHYSICAL EXAMINATION: General Appearance: Alert, cooperative, no distress, appears stated age. Neck HEENT: Supple, no lymphadenopathy, no thyroid enlargement, no carotid bruits. Lungs: Clear to auscultation without crackles or wheezes no rhonchi, no deformity. Chest Wall: Chest wall normal expansion with deep inspiration no tenderness and no deformity was found on exam, no costochondral pain or discomfort. Heart: Irregular rate and rhythm, S1, S2 normal, no murmur, rub or gallop. Back: Symmetric, no curvature, ROM normal, no CVA tenderness. Abdomen: Soft, non-tender, bowel sounds active all four quadrants, no masses, no organomegaly. Extremities: Extremities normal, atraumatic, no cyanosis or edema. Pulses: Decreased pulse bilaterally worse on the left than the right side Skin: Skin color, texture, tugor normal, no rashes or lesions. Neurologic: Alert oriented with confusion cranial nerves II through XII intact, no motor deficit, no abnormal balance or gait. ASSESSMENT AND PLAN: _Slight dyspnea and shortness of breath consistent with mild CHF and cardiomyopathy with mild fluid overload, patient will be on IV diuretics, consult cardiology echocardiogram was done from last admission to be review watch her weight and urine output. Will titrate activity gradually as well. _Urgent hypertension: Adjust Valsartan to 80 mg twice a day and will add smaller dose of amlodipine if needed. _Recent syncope: Not clear etiology the full explanation the patient might have mild pericarditis had caused a syncopal episode in the first place. _Pericarditis: With mild pleural effusion and slight inflamed pericardium was supposed to stay on colchicine 0.6 mg daily for total of 4 to 6 weeks and echocardiogram to be repeated again in 2 weeks by cardiology. _Moderate-sized pericardial effusion: Most likely from pericarditis was post to have another echo in the next 2 weeks. _Elevated liver function test: Most likely hypoperfusion liver function test are better so far. _Nonischemic cardiomyopathy post AICD still on medical management. And has been doing well up till now may be adjustment of her medication specially valsartan and diuretics can be beneficial and helpful. _Coronary artery disease with 100% blockage of the distal PLB for heart cath in 2008 and mild stenosis of the LAD did not require any interventions to the medical management. _Hypertension: Remain on valsartan 80 mg daily along with metoprolol succinate 50 mg. _A-fib with RVR: Doing much better still on metoprolol and Xarelto. _Alzheimer disease: Remain on donepezil 10 mg a day with no side effects so far. _Hyperlipidemia: Will continue patient on atorvastatin 20 mg at bedtime. _Osteoporosis: Remain on Boniva along with calcium and vitamin D. _Debility: Patient has not been moving much will consult PT and OT for potential help Hospital course: She was admitted to the hospital on July 21, 2024 with episode of syncope possible seizure versus arrhythmia end up seeing cardiology and neurology had testing including echo, carotid, CAT scan of the brain, cardiac nurse specialist all came back negative could not explain her symptom of passing out. Patient ended up going home on 07/24/2024 the last day patient echocardiogram revealed slight pericardial effusion and agree with cardiology to initiate patient on colchicine to improve any possibility of pericarditis. Patient brought back to the emergency department on 07/25/2024 with significantly elevated blood pressure with mild symptom of slight dyspnea as well blood pressure was higher than expected family are concerned about having to have any damage or problem from it was seen and evaluated emergency department To have slightly elevated blood pressure, try to send patient home family was slightly bit resistant initially felt specially with the blood pressure fluc brian wanted to be watching controlled slight bit. She was hospitalized overnight adjusted medication and control of blood pressure much better. Was seen and evaluated by cardiology and agree again with idea of having to treat pericardial effusion with colchicine. She is seen back in 2 weeks another echocardiogram. Patient was very stable for discharge on 07/26/2024. Time spent on patient discharge was over 32 minutes. Patient Condition at Discharge: Good Plan - Discharge Summary New Discharge Prescriptions: New Nitroglycerin Sl Tabs [Nitrostat] 0.4 mg SUBLINGUAL Q10M PRN #25 tab PRN Reason: Hypertensive Emergency Acetaminophen Tab [Tylenol] 650 mg PO Q6HR PRN tab PRN Reason: Mild Pain Or Fever > 100.5 Sacubitril/Valsartan [Entresto 24 mg-26 mg Tablet] 0.5 each PO BID #60 tab Continue Rivaroxaban [Xarelto] 15 mg PO HS Baclofen [Lioresal] 10 mg PO HS Colchicine 0.6 mg PO AC-BRKFST #60 capsule Magnesium Carb,Citrate,Oxide [Magnesium Complex] 300 mg PO DAILY #60 tablet Pantoprazole [Protonix] 40 mg PO AC-BRKFST #30 tab Ibandronate Sodium [Boniva] 150 mg PO Q30D Donepezil [Aricept] 10 mg PO HS Ergocalciferol (Vitamin D2) [Drisdol (50,000 Iu)] 1,250 mcg PO SALDIVAR Atorvastatin [Lipitor] 20 mg PO HS Changed Metoprolol Succinate (ER) [Toprol XL] 25 mg PO HS #0 Discontinued Valsartan [Diovan] 80 mg PO HS Discharge Medication List Rivaroxaban [Xarelto] 15 mg PO HS 03/02/22 [History] Atorvastatin [Lipitor] 20 mg PO HS 07/21/24 [History] Baclofen [Lioresal] 10 mg PO HS 07/21/24 [History] Donepezil [Aricept] 10 mg PO HS 07/21/24 [History] Ergocalciferol (Vitamin D2) [Drisdol (50,000 Iu)] 1,250 mcg PO SALDIVAR 07/21/24 [History] Ibandronate Sodium [Boniva] 150 mg PO Q30D 07/21/24 [History] Colchicine 0.6 mg PO AC-BRKFST #60 capsule 07/24/24 [Rx] Magnesium Carb,Citrate,Oxide [Magnesium Complex] 300 mg PO DAILY #60 tablet 07/24/24 [Rx] Pantoprazole [Protonix] 40 mg PO AC-BRKFST #30 tab 07/24/24 [Rx] Acetaminophen Tab [Tylenol] 650 mg PO Q6HR PRN tab 07/26/24 [Rx] Metoprolol Succinate (ER) [Toprol XL] 25 mg PO HS #0 07/26/24 [Rx] Nitroglycerin Sl Tabs [Nitrostat] 0.4 mg SUBLINGUAL Q10M PRN #25 tab 07/26/24 [Rx] Sacubitril/Valsartan [Entresto 24 mg-26 mg Tablet] 0.5 each PO BID #60 tab 07/26/24 [Rx] Follow up Appointment(s)/Referral(s): Radha Goodman MD [STAFF PHYSICIAN] - 07/31/24 9:00 am Mathieu Philippe MD [Primary Care Provider] - 1-2 days Patient Instructions/Handouts: Heart Failure (DC) Discharge/Stand Alone Forms: Who Do I Call?, Community Resources, Help In The Home Discharge Disposition: HOME WITH HOME HEALTH SERVICES
== END 2024-07-26 15:36 | disposition home health service (06) ==
LOC: EC 01:43 → 6NMEDSUR 06:31
PROVIDERS: ADMIT Internal Medicine Geriatric Medicine; ATTEND Internal Medicine Geriatric Medicine
CPT/HCPCS: 36415; 71046; 80048; 80053; 81003; 83605; 83880; 84484; 85025; 85610; 85730; 93005; 94760; 96374; 96376; 99285

== ENCOUNTER 2025-01-31 19:52 | Emergency (ER) | payer MEDICARE ==
[2025-01-31 20:06] VITALS: RESP 17
--- NOTE | 2025-01-31 21:21 | ED ---
Skin/Abscess/FB HPI - General Chief complaint: Skin/Abscess/Foreign Body Stated complaint: Bed Sores Time Seen by Provider: 01/31/25 20:58 Source: patient Mode of arrival: wheelchair Limitations: no limitations - History of Present Illness Initial comments: This patient is an 79-year-old woman who presents to have evaluation of decubitus ulcer which is developing over the sacrum/coccyx area. Most of the history comes from the patient's daughter who is her usual caregiver at home. She states that there has always been some discoloration of the skin but it seemed to open up over the course of the past day. She states that she does try to turn her mother but her mother often ends up lying back in a position that puts pressure on this area. They had not been applying dressings because it had not been very bad. Patient has previously had sacral ulcer, during her last hospital admission but it had improved. No evidence of infection. No fever or chills. No foul drainage. In addition the patient is complaining of some left femur pain. She indicates the mid portion of the left femur. It is not present at rest but mainly with movement. No trauma. No pain distal to injury. No loss of sensation. MD complaint: lesion Onset/Timin -: days(s) Tetanus Up to Date: yes Location: buttocks, LLE Severity: mild Quality: aching Consistency: constant Improves with: none Worsens with: none Associated symptoms: denies other symptoms Treatments Prior to Arrival: none - Related Data Home Medications Medication Instructions Recorded Confirmed Rivaroxaban [Xarelto] 15 mg PO HS 03/02/22 07/25/24 Atorvastatin [Lipitor] 20 mg PO HS 07/21/24 07/25/24 Baclofen [Lioresal] 10 mg PO HS 07/21/24 07/25/24 Donepezil [Aricept] 10 mg PO HS 07/21/24 07/25/24 Ergocalciferol (Vitamin D2) 1,250 mcg PO SALDIVAR 07/21/24 07/25/24 [Drisdol (50,000 Iu)] Ibandronate Sodium [Boniva] 150 mg PO Q30D 07/21/24 07/25/24 Previous Rx's Medication Instructions Recorded Colchicine 0.6 mg PO -BRKFST #60 capsule 07/24/24 Magnesium Carb,Citrate,Oxide 300 mg PO DAILY #60 tablet 07/24/24 [Magnesium Complex] Pantoprazole [Protonix] 40 mg PO AC-BRKFST #30 tab 07/24/24 Acetaminophen Tab [Tylenol] 650 mg PO Q6HR PRN tab 07/26/24 Metoprolol Succinate (ER) [Toprol 25 mg PO HS #0 07/26/24 XL] Nitroglycerin Sl Tabs [Nitrostat] 0.4 mg SUBLINGUAL Q10M PRN #25 tab 07/26/24 Sacubitril/Valsartan [Entresto 24 0.5 each PO BID #60 tab 07/26/24 mg-26 mg Tablet] Allergies Allergy/AdvReac Type Severity Reaction Status Date / Time No Known Allergies Allergy Verified 07/25/24 07:55 Review of Systems ROS Statement: Those systems with pertinent positive or pertinent negative responses have been documented in the HPI. ROS Other: All systems not noted in ROS Statement are negative. Constitutional: Denies: fever, chills, weakness Respiratory: Denies: cough, dyspnea Cardiovascular: Denies: chest pain Gastrointestinal: Denies: abdominal pain, vomiting, diarrhea Genitourinary: Denies: dysuria Musculoskeletal: Reports: other (Left leg pain). Denies: back pain Skin: Reports: as per HPI, other (Decubitus ulcer) Neurological: Denies: weakness, numbness Past Medical History Past Medical History: Hyperlipidemia, Hypertension, Osteoarthritis (OA), Pneumonia, Vascular Disorder Additional Past Medical History / Comment(s): See Dr. Andino H&P. "Weak heart." Hx Pneumonia many yrs ago. chronic back pain, stent in bilat leg, dementia, pacemaker, alzheimers History of Any Multi-Drug Resistant Organisms: None Reported Past Surgical History: AICD, Bowel Resection, Heart Catheterization, Orthopedic Surgery, Tonsillectomy Additional Past Surgical History / Comment(s): ARTHROSCOPY BILATERAL KNEES, LEFT ILIAC PTBA/STENT, 05-08-15 STENT TO RIGHTT ILIAC, colonoscopy. Past Anesthesia/Blood Transfusion Reactions: No Reported Reaction Additional Past Anesthesia/Blood Transfusion Reaction / Comment(s): With one prior surgery had difficulty waking up. Type of Cardiac Device: Permanent Pacemaker, AICD Device Placement Date:: 2008 and generator change 01/2016 Past Psychological History: No Psychological Hx Reported Smoking Status: Former smoker Past Alcohol Use History: None Reported Past Drug Use History: None Reported - Past Family History Sister(s) Family Medical History: Cancer Additional Family Medical History / Comment(s): Brain Cancer. Father Family Medical History: Myocardial Infarction ([place]) General Exam Limitations: no limitations General appearance: alert, in no apparent distress Head exam: Present: atraumatic, normocephalic Eye exam: Present: normal appearance. Absent: scleral icterus, conjunctival injection Neck exam: Present: normal inspection Respiratory exam: Present: normal lung sounds bilaterally. Absent: respiratory distress, wheezes, rales, rhonchi, stridor, accessory muscle use Cardiovascular Exam: Present: regular rate, normal rhythm, normal heart sounds. Absent: systolic murmur, diastolic murmur, rubs, gallop GI/Abdominal exam: Present: soft. Absent: distended, tenderness, guarding, rebound, rigid, mass Extremities exam: Present: normal inspection, normal capillary refill. Absent: pedal edema, calf tenderness Back exam: Present: normal inspection. Absent: CVA tenderness (R), CVA tenderness (L) Neurological exam: Present: alert Skin exam: Present: warm, dry, normal color, other (The patient has an approximately 4 cm diameter roughly circular decubitus ulcer stage II-III over the lower sacrum. No foul drainage. Also just to the right and distal to this ulcer there is a stage I decubitus.). Absent: rash Course Vital Signs 01/31/25 01/31/25 19:53 22:15 Temperature 97.4 F L 97.9 F Pulse Rate 87 91 Respiratory 17 Rate Blood Pressure 91/53 111/71 O2 Sat by Pulse 96 97 Oximetry Medical Decision Making - Medical Decision Making Was pt. sent in by a medical professional or institution (, PA, COMMERCIAL HOUSEKEEPER, urgent care, hospital, or custodial...) When possible be specific @ -[No] Did you speak to anyone other than the patient for history (EMS, parent, family, police, friend...)? What history was obtained from this source @ -[Patient's daughter contributed to history Did you review nursing and triage notes (agree or disagree)? Why? @ -[I reviewed and agree with nursing and triage notes] Were old charts reviewed (outside hosp., previous admission, EMS record, old EKG, old radiological studies, urgent care reports/EKG's, custodial records)? Report findings @ -[No old charts were reviewed] Differential Diagnosis (chest pain, altered mental status, abdominal pain women, abdominal pain men, vaginal bleeding, weakness, fever, dyspnea, syncope, headache, dizziness, GI bleed, back pain, seizure, CVA, palpatations, mental health, musculoskeletal)? @ -[Differential Back Pain: Strain, zoster, cauda equina syndrome, epidural abscess, vertebral osteomyelitis, discitis, fracture, subluxation, disc herniation, DJD, spinal stenosis, dissection, AAA, pancreatitis, peptic ulcer disease, pyelonephritis, kidney stone, this is not meant to be an all-inclusive list. EKG interpreted by me (3pts min.). @ -[As above] X-rays interpreted by me (1pt min.). @ -[Left femur x-rays were obtained given the patient's pain and tenderness on exam. I interpreted this as negative for acute fracture, dislocation, foreign body. CT interpreted by me (1pt min.). @ -[None done] U/S interpreted by me (1pt. min.). @ -[None done] What testing was considered but not performed or refused? (CT, X-rays, U/S, labs)? Why? @ -[None] What meds were considered but not given or refused? Why? @ -[None] Did you discuss the management of the patient with other professionals (professionals i.e. , PA, COMMERCIAL HOUSEKEEPER, lab, RT, psych nurse, social insurance analyst, regenerator operator, teacher, tax compliance officer, supportive employment case manager)? Give summary @ -[No] Was smoking cessation discussed for >3mins.? @ -[No] Was critical care preformed (if so, how long)? @ -[No] Were there social determinants of health that impacted care today? How? (Homelessness, low income, unemployed, alcoholism, drug addiction, transportation, low edu. Level, literacy, decrease access to med. care, [place] [facility], rehab)? @ -[No] Was there de-escalation of care discussed even if they declined (Discuss DNR or withdrawal of care, Hospice)? DNR status @ -[No] What co-morbidities impacted this encounter? (DM, HTN, Smoking, COPD, CAD, Cancer, CVA, ARF, Chemo, Hep., AIDS, mental health diagnosis, sleep apnea, morbid obesity)? @ -[Poor mobility Was patient admitted / discharged? Hospital course, mention meds given and route, prescriptions, significant lab abnormalities, going to OR and other pertinent info. @ -[Patient is 79-year-old woman here with leg pain and also with small sacral decubitus ulcer. The patient at this point stable to continue as outpatient. Discussed appropriate further care and follow-up as well as return parameters. Undiagnosed new problem with uncertain prognosis? @ -[No] Drug Therapy requiring intensive monitoring for toxicity (Heparin, Nitro, Insulin, Cardizem)? @ -[No] Were any procedures done? @ -[No] Diagnosis/symptom? @ -[Acute sacral decubitus ulcer Acute left leg pain Acute, or Chronic, or Acute on Chronic? @ -[Acute Uncomplicated (without systemic symptoms) or Complicated (systemic symptoms)? @ -[Uncomplicated Side effects of treatment? @ -[No] Exacerbation, Progression, or Severe Exacerbation? @ -[No] Poses a threat to life or bodily function? How? (Chest pain, [place], [place], pneumonia, PE, COPD, DKA, ARF, appy, cholecystitis, CVA, Diverticulitis, Homicidal, Suicidal, threat to staff... and all critical care pts) @ -[No] All treatments are based on ideal body weight as in ED triage Disposition Clinical Impression: Decubitus ulcer, Leg pain Disposition: HOME SELF-CARE Condition: Good Instructions (If sedation given, give patient instructions): How to Prevent Pressure Injuries (ED), Leg Pain (ED) Is patient prescribed a controlled substance at d/c from ED?: No Referrals: Mathieu Philippe MD [Primary Care Provider] - 1-2 days [facility] [NON-STAFF] - 1-2 days
--- NOTE | 2025-01-31 21:45 | XR ---
EXAMINATION TYPE: XR femur LT DATE OF EXAM: 01/31/2025 9:38 PM INDICATION: Patient age:Female; 79 years old; Reason for study: L leg pain; pain COMPARISON: None TECHNIQUE: The left femur was examined in frontal and lateral projections. FINDINGS: No evidence of acute osseous pathology, joint dislocation, or soft tissue swelling no osse ous erosions. Left iliac artery vascular stent. Vascular calcifications. IMPRESSION: No acute osseous pathology. [facility], , 01/31/2025 9:43 PM
[2025-01-31 22:16] VITALS: BP 111/71; PULSE 91; TEMP 97.9
== END 2025-01-31 22:32 | disposition home or self-care (01) ==
LOC: EC 19:52
DX: M79.605 Pain in left leg (principal); L89.152 Pressure ulcer of sacral region, stage 2; L89.153 Pressure ulcer of sacral region, stage 3; R69 Illness, unspecified; Z87.891 Personal history of nicotine dependence; Z68.1 Body mass index [BMI] 19.9 or less, adult
CPT/HCPCS: 87070; 87205; 99283